=== PATIENT | female | born 1950 | race Caucasian/White ===

== ENCOUNTER 2018-02-28 16:04 | Inpatient (IN) | payer MEDICARE ==
[2018-02-28] MEDS ORDERED: HEPARIN SODIUM,PORCINE 5,000 UNIT/ML 1 ML VIAL IV STA (16:51)
[2018-02-28] MEDS ORDERED: SODIUM CHLORIDE 0.9% 1,000 ML IV STA (16:51)
[2018-02-28] MEDS ORDERED: DILTIAZEM 50 MG in SODIUM CHLORIDE 0.9% 40 ML IV STA (16:51)
--- NOTE | 2018-02-28 16:57 | ED ---
Arrhythmia/Palpitations HPI - General Chief Complaint: Arrhythmia/Palpitations Stated Complaint: Abn EKG Time Seen by Provider: 02/28/18 16:35 Source: patient Mode of arrival: ambulatory Limitations: no limitations - History of Present Illness Initial Comments: This is a 67-year-old female history of rheumatoid and osteoarthritis hypertension fibromyalgia who was sent in for evaluation of atrial fibrillation. She started doctor today was found have atrial fibrillation with rapid ventricular response. The patient does states she's had shortness of breath and exertional dyspnea for the past several days. No chest pain no dizziness lightheadedness or other symptoms no palpitations. No weight gain no peripheral edema. She does states she's always had an irregular heartbeat but does not believe she had atrial fibrillation. No history of thyroid disease. No other modifying factors known at this time MD Complaint: irregular heart beat - Related Data Home Medications Medication Instructions Recorded Confirmed Sivakumar Back And Body 2 tab PO Q6H PRN 02/28/18 02/28/18 Loratadine [Claritin] 10 mg PO DAILY 02/28/18 02/28/18 Multivitamins, Thera [Multivitamin 1 tab PO DAILY 02/28/18 02/28/18 (formulary)] Allergies Allergy/AdvReac Type Severity Reaction Status Date / Time ciprofloxacin [From Cipro] Allergy Rash/Hives Verified 02/28/18 17:16 acetaminophen AdvReac Hallucinati Verified 02/28/18 17:16 [From Darvocet-N] ons propoxyphene AdvReac Hallucinati Verified 02/28/18 17:16 [From Darvocet-N] ons Review of Systems ROS Statement: Those systems with pertinent positive or pertinent negative responses have been documented in the HPI. ROS Other: All systems not noted in ROS Statement are negative. Past Medical History Additional Past Medical History / Comment(s): Arthritis History of Any Multi-Drug Resistant Organisms: None Reported Past Surgical History: Hysterectomy, Orthopedic Surgery Past Psychological History: No Psychological Hx Reported Smoking Status: Never smoker Past Alcohol Use History: None Reported Past Drug Use History: None Reported General Exam - General Exam Comments Initial Comments: This is a well-developed well-nourished awake alert oriented 3 female Limitations: no limitations General appearance: alert, in no apparent distress Head exam: Present: atraumatic, normocephalic, normal inspection Eye exam: Present: normal appearance, PERRL, EOMI. Absent: scleral icterus, conjunctival injection, periorbital swelling ENT exam: Present: normal exam, mucous membranes moist Neck exam: Present: normal inspection. Absent: tenderness, meningismus, lymphadenopathy Respiratory exam: Present: normal lung sounds bilaterally. Absent: respiratory distress, wheezes, rales, rhonchi, stridor Cardiovascular Exam: Present: tachycardia, irregular rhythm. Absent: systolic murmur, diastolic murmur, rubs, gallop, clicks GI/Abdominal exam: Present: soft, normal bowel sounds. Absent: distended, tenderness, guarding, rebound, rigid Extremities exam: Present: full ROM, normal capillary refill, other (Stigmata of rheumatoid arthritis). Absent: tenderness, pedal edema, joint swelling, calf tenderness Back exam: Present: normal inspection Neurological exam: Present: alert, oriented X3, CN II-XII intact Psychiatric exam: Present: normal affect, normal mood Skin exam: Present: warm, dry, intact, normal color. Absent: rash Course Vital Signs 02/28/18 16:08 Temperature 98.5 F Pulse Rate 139 H Respiratory 18 Rate Blood Pressure 181/125 O2 Sat by Pulse 98 Oximetry - Reevaluation(s) Reevaluation #1: 02/28/18 17:55 I did reevaluate patient after return from x-ray no change in her status he still is breathing well at rest maintain oxygenation in the mid 90s on room air. EKG Findings - EKG Results: EKG: interpreted by ERMD (Atrial fibrillation rapid ventricular response rate 128 QRS 82 QT since QTC 336/490 this is after Cardizem had been started. This does correlate with the one sent in with the patient.) Medical Decision Making - Lab Data Result diagrams: 02/28/18 16:41 02/28/18 16:41 Lab Results 02/28/18 02/28/18 02/28/18 Range/Units 16:41 16:41 16:41 WBC 6.7 (3.8-10.6) k/uL RBC 4.17 (3.80-5.40) m/uL Hgb 10.3 L (11.4-16.0) gm/dL Hct 33.1 L (34.0-46.0) % MCV 79.3 L (80.0-100.0) fL MCH 24.8 L (25.0-35.0) pg MCHC 31.2 (31.0-37.0) g/dL RDW 17.9 H (11.5-15.5) % Plt Count 171 (150-450) k/uL Neutrophils % 72 % Lymphocytes % 16 % Monocytes % 7 % Eosinophils % 2 % Basophils % 1 % Neutrophils # 4.8 (1.3-7.7) k/uL Lymphocytes # 1.1 (1.0-4.8) k/uL Monocytes # 0.5 (0-1.0) k/uL Eosinophils # 0.1 (0-0.7) k/uL Basophils # 0.0 (0-0.2) k/uL Hypochromasia Marked Anisocytosis Slight Microcytosis Slight PT (9.0-12.0) sec INR (<1.2) APTT (22.0-30.0) sec Sodium 143 (137-145) mmol/L Potassium 4.1 (3.5-5.1) mmol/L Chloride 109 H (98-107) mmol/L Carbon Dioxide 18 L (22-30) mmol/L Anion Gap 16 mmol/L BUN 16 (7-17) mg/dL Creatinine 0.60 (0.52-1.04) mg/dL Est GFR (CKD-EPI)AfAm >90 (>60 ml/min/1.73 sqM) Est GFR (CKD-EPI)NonAf >90 (>60 ml/min/1.73 sqM) Glucose 101 H (74-99) mg/dL Calcium 8.9 (8.4-10.2) mg/dL Magnesium 1.8 (1.6-2.3) mg/dL Total Bilirubin 0.4 (0.2-1.3) mg/dL AST 39 H (14-36) U/L ALT 49 (9-52) U/L Alkaline Phosphatase 99 (38-126) U/L Total Creatine Kinase 93 (30-135) U/L CK-MB (CK-2) 2.6 H* (0.0-2.4) ng/mL CK-MB (CK-2) Rel Index 2.8 Troponin I 0.017 (0.000-0.034) ng/mL Total Protein 6.1 L (6.3-8.2) g/dL Albumin 3.7 (3.5-5.0) g/dL TSH <0.015 L (0.465-4.680) mIU/L 02/28/18 Range/Units 16:41 WBC (3.8-10.6) k/uL RBC (3.80-5.40) m/uL Hgb (11.4-16.0) gm/dL Hct (34.0-46.0) % MCV (80.0-100.0) fL MCH (25.0-35.0) pg MCHC (31.0-37.0) g/dL RDW (11.5-15.5) % Plt Count (150-450) k/uL Neutrophils % % Lymphocytes % % Monocytes % % Eosinophils % % Basophils % % Neutrophils # (1.3-7.7) k/uL Lymphocytes # (1.0-4.8) k/uL Monocytes # (0-1.0) k/uL Eosinophils # (0-0.7) k/uL Basophils # (0-0.2) k/uL Hypochromasia Anisocytosis Microcytosis PT 11.6 (9.0-12.0) sec INR 1.2 H (<1.2) APTT 24.6 (22.0-30.0) sec Sodium (137-145) mmol/L Potassium (3.5-5.1) mmol/L Chloride (98-107) mmol/L Carbon Dioxide (22-30) mmol/L Anion Gap mmol/L BUN (7-17) mg/dL Creatinine (0.52-1.04) mg/dL Est GFR (CKD-EPI)AfAm (>60 ml/min/1.73 sqM) Est GFR (CKD-EPI)NonAf (>60 ml/min/1.73 sqM) Glucose (74-99) mg/dL Calcium (8.4-10.2) mg/dL Magnesium (1.6-2.3) mg/dL Total Bilirubin (0.2-1.3) mg/dL AST (14-36) U/L ALT (9-52) U/L Alkaline Phosphatase (38-126) U/L Total Creatine Kinase (30-135) U/L CK-MB (CK-2) (0.0-2.4) ng/mL CK-MB (CK-2) Rel Index Troponin I (0.000-0.034) ng/mL Total Protein (6.3-8.2) g/dL Albumin (3.5-5.0) g/dL TSH (0.465-4.680) mIU/L - Radiology Data Radiology results: report reviewed (I did review the imaging and report is evidence of bilateral pleural effusions. Some cardiomegaly without overt signs of heart failure.), image reviewed Critical Care Time Critical Care Time: Yes Critical Care Time: 35 minutes of critical care time which includes initial presentation with history physical labs x-rays several reevaluation the patient evaluation imaging and lab work discussed with the patient family regarding findings discussion with the admitting physician admission orders and documentation of the above. Disposition Clinical Impression: Atrial fibrillation, Pleural effusion Disposition: ADMITTED IP TO THIS [facility] Condition: Stable Referrals: Mady Montague MD [Primary Care Provider] - 1-2 days
[2018-02-28 17:12] LABS: Anisocytosis Slight; Basophils % (A) 1 %; Eosinophils # (A) 0.1 k/uL (0-0.7); Eosinophils % (A) 2 %; HCT 33.1 % (34.0-46.0); HGB 10.3 gm/dL (11.4-16.0); Hypochromasia Marked; Lymphocytes # (A) 1.1 k/uL (1.0-4.8); Lymphocytes % (A) 16 %; MCH 24.8 pg (25.0-35.0); MCHC 31.2 g/dL (31.0-37.0); MCV 79.3 fL (80.0-100.0); Mean Platelet Volume 7.9; Microcytosis Slight; Monocytes # (A) 0.5 k/uL (0-1.0); Monocytes % (A) 7 %; Neutrophils # (A) 4.8 k/uL (1.3-7.7); Neutrophils % (A) 72 %; Platelet Count 171 k/uL (150-450); RBC 4.17 m/uL (3.80-5.40); RDW 17.9 % (11.5-15.5); WBC 6.7 k/uL (3.8-10.6)
[2018-02-28 17:21] LABS: INR 1.2 (<1.2); Partial Thromboplastin Time 24.6 sec (22.0-30.0); Prothrombin Time 11.6 sec (9.0-12.0)
[2018-02-28 17:26] LABS: ALT 49 U/L (9-52); AST 39 U/L (14-36); Albumin 3.7 g/dL (3.5-5.0); Alkaline Phosphatase 99 U/L (38-126); Anion Gap 16 mmol/L; Blood Urea Nitrogen 16 mg/dL (7-17); Calcium 8.9 mg/dL (8.4-10.2); Carbon Dioxide 18 mmol/L (22-30); Chloride 109 mmol/L (98-107); Glucose 101 mg/dL (74-99); Magnesium 1.8 mg/dL (1.6-2.3); Potassium 4.1 mmol/L (3.5-5.1); Sodium 143 mmol/L (137-145); Total Bilirubin 0.4 mg/dL (0.2-1.3); Total Protein 6.1 g/dL (6.3-8.2)
--- NOTE | 2018-02-28 17:32 | XR ---
EXAMINATION TYPE: XR chest 2V DATE OF EXAM: 02/28/2018 COMPARISON: NONE HISTORY: Short of breath TECHNIQUE: Frontal and lateral views of the chest are obtained. FINDINGS: Heart is enlarged. There is blunting of costophrenic angles. There are chest leads. Thorac ic aorta is atheromatous. IMPRESSION: Bilateral pleural effusions. Cardiomegaly without overt heart failure.
[2018-02-28 17:50] LABS: Troponin I 0.017 ng/mL (0.000-0.034)
[2018-02-28 17:52] LABS: Creatine Kinase MB 2.6 ng/mL (0.0-2.4)
[2018-02-28] MEDS: HEPARIN SODIUM,PORCINE/D5W PMX 25,000 UNIT in DEXTROSE/WATER 1 500ML.BAG IV SCH (17:54)
[2018-02-28] MEDS ORDERED: NALOXONE 0.4 MG/ML 1 ML VIAL IV PRN (17:59)
[2018-02-28] MEDS ORDERED: FUROSEMIDE 10 MG/ML 4 ML VIAL IV STA (18:01)
[2018-02-28] MEDS: SODIUM CHLORIDE 0.9% 1,000 ML IV SCH (19:01)
[2018-02-28] MEDS: ASPIRIN 81 MG PO STA ×2 (19:04→19:06)
[2018-02-28] MEDS: METOPROLOL TARTRATE 25 MG TAB PO SCH (20:10)
[2018-02-28 22:08] VITALS: BMI 22.8
[2018-03-01] MEDS ORDERED: HEPARIN SODIUM,PORCINE 5,000 UNIT/ML 1 ML VIAL ONE (03:38)
[2018-03-01] MEDS: HEPARIN SODIUM,PORCINE/D5W PMX 25,000 UNIT in DEXTROSE/WATER 1 500ML.BAG IV SCH (09:10)
[2018-03-01] MEDS: METOPROLOL TARTRATE 25 MG TAB PO SCH (09:10)
[2018-03-01] MEDS: ASPIRIN 81 MG PO SCH (09:10)
[2018-03-01] MEDS: LORATADINE 10 MG TAB PO SCH (10:27)
--- NOTE | 2018-03-01 10:48 | P.CRDCN ---
History of Present Illness Consult date: 03/01/18 Requesting physician: Vandana Baron Consult reason: atrial fibrillation Chief complaint: Shortness of breath History of present illness: This is a pleasant 67-year-old female with history of hypertension, untreated, nondiabetic, no hyperlipidemia, nonsmoker, rheumatoid and osteoarthritis history, patient has attempted several different medications for her rheumatoid arthritis over the years but has been unable to tolerate them. She presents to the hospital on this occasion with symptoms of progressively worsening shortness of breath which she states has been going on for quite some time. She recently was established with Dr. Montague, she went to see her in the office with the complaints of the shortness of breath yesterday, and EKG was performed which revealed atrial fibrillation with rapid ventricular response, and for this reason patient was admitted to the hospital for further evaluation and treatment. Chest x-ray on arrival here showed bilateral pleural effusions, cardiomegaly without overt heart failure. EKG showed atrial fibrillation with a rapid ventricular response. Patient states she has been told over the years to have some irregularity in heart beat but never has been told to have atrial fibrillation prior to this. She also states that she has worn a heart monitor several times in the past as an outpatient which never seemed to detect any atrial fibrillation. Subsequent EKG White blood cell count 6.7, hemoglobin 10.3 , platelet count 171. Sodium 143, potassium 4.1, BUN 16, creatinine 0.6. Magnesium 1.8. Troponins 0.017, 0.026, 0.025. TSH 0.015. At the time of my examination this morning, patient states that she feels her breathing is even worse than when she came in yesterday. The patient had been given a one-time dose of IV Lasix on admission here, and her weight is down 2 kg from admission. Past Medical History Past Medical History: Fibromyalgia, Hypertension, Osteoarthritis (OA), Rheumatoid Arthritis (RA) Additional Past Medical History / Comment(s): Arthritis History of Any Multi-Drug Resistant Organisms: None Reported Past Surgical History: Hysterectomy, Orthopedic Surgery Past Psychological History: No Psychological Hx Reported Smoking Status: Never smoker Past Alcohol Use History: None Reported Past Drug Use History: None Reported Medications and Allergies Home Medications Medication Instructions Recorded Confirmed Type Sivakumar Back And Body 2 tab PO Q6H PRN 02/28/18 02/28/18 History Loratadine [Claritin] 10 mg PO DAILY 02/28/18 02/28/18 History Multivitamins, Thera [Multivitamin 1 tab PO DAILY 02/28/18 02/28/18 History (formulary)] Allergies Allergy/AdvReac Type Severity Reaction Status Date / Time ciprofloxacin [From Cipro] Allergy Rash/Hives Verified 02/28/18 17:16 acetaminophen AdvReac Hallucinati Verified 02/28/18 17:16 [From Darvocet-N] ons propoxyphene AdvReac Hallucinati Verified 02/28/18 17:16 [From Darvocet-N] ons Physical Exam Vitals: Vital Signs Temp Pulse Pulse Resp BP BP Pulse Ox 03/01/18 04:00 97.5 F L 98 18 152/61 94 L 03/01/18 00:00 98.0 F 110 H 18 140/94 94 L 02/28/18 21:13 122 H 18 159/64 97 02/28/18 21:07 98.6 F 105 H 18 139/92 94 L 02/28/18 20:09 139 H 18 162/107 97 02/28/18 19:14 145/86 02/28/18 19:04 98.4 F 124 H 20 170/95 98 02/28/18 18:59 132 H 20 95 02/28/18 17:57 100.4 F H 131 H 18 169/96 94 L 02/28/18 16:08 98.5 F 139 H 18 181/125 98 Intake and Output 02/28/18 03/01/18 03/01/18 22:59 06:59 14:59 Intake Total 325 124.344 291.304 Output Total 1 Balance 324 124.344 291.304 Intake: Intake, IV Titration 200 124.344 91.304 Amount Heparin Sodium,Porcine/ 40 124.344 91.304 D5w Pmx 25,000 unit In Dextrose/Water 1 500ml. bag @ 12 UNITS/KG/HR 12. 93 mls/hr IV .Q24H MADHU Rx #:[id number] Sodium Chloride 0.9% 1, 100 000 ml @ 100 mls/hr IV . Q10H STA Rx#:[id number] Sodium Chloride 0.9% 1, 60 000 ml @ 20 mls/hr IV . Q24H MADHU Rx#:[id number] Oral 125 200 Output: Urine 1 Other: # Voids 1 1 1 Weight 53.8 kg 51.2 kg PHYSICAL EXAMINATION: GENERAL: 67-year-old female appears to be short of breath at the time of my examination. HEENT: Head is atraumatic, normocephalic. Pupils equal, round. Sclera anicteric. Conjunctiva are clear. Mucous membranes of the mouth are moist. Neck is supple. There is elevated jugular venous pressure.] bruit is heard. HEART EXAMINATION: Heart S1 and S2 irregularly irregular diastolic murmur is heard. CHEST EXAMINATION: Lungs are clear with diminished air entry to bilateral bases. ABDOMEN: Soft, nontender. Bowel sounds are heard. No organomegaly noted. EXTREMITIES: 2+ peripheral pulses with no evidence of peripheral edema and no calf tenderness noted. NEUROLOGIC patient is awake, alert and oriented -3. . Results 02/28/18 16:41 02/28/18 16:41 Cardiac Enzymes 02/28/18 02/28/18 02/28/18 Range/Units 16:41 16:41 23:58 AST 39 H (14-36) U/L CK-MB (CK-2) 2.6 H* (0.0-2.4) ng/mL Troponin I 0.017 0.026 (0.000-0.034) ng/mL 03/01/18 Range/Units 06:13 AST (14-36) U/L CK-MB (CK-2) (0.0-2.4) ng/mL Troponin I 0.025 (0.000-0.034) ng/mL Coagulation 02/28/1818 03/01/18 Range/Units 16:41 02:44 09:18 PT 11.6 (9.0-12.0) sec APTT 24.6 30.8 H 40.5 H (22.0-30.0) sec CBC 02/28/18 Range/Units 16:41 WBC 6.7 (3.8-10.6) k/uL RBC 4.17 (3.80-5.40) m/uL Hgb 10.3 L (11.4-16.0) gm/dL Hct 33.1 L (34.0-46.0) % Plt Count 171 (150-450) k/uL Comprehensive Metabolic Panel 02/28/18 Range/Units 16:41 Sodium 143 (137-145) mmol/L Potassium 4.1 (3.5-5.1) mmol/L Chloride 109 H (98-107) mmol/L Carbon Dioxide 18 L (22-30) mmol/L BUN 16 (7-17) mg/dL Creatinine 0.60 (0.52-1.04) mg/dL Glucose 101 H (74-99) mg/dL Calcium 8.9 (8.4-10.2) mg/dL AST 39 H (14-36) U/L ALT 49 (9-52) U/L Alkaline Phosphatase 99 (38-126) U/L Total Protein 6.1 L (6.3-8.2) g/dL Albumin 3.7 (3.5-5.0) g/dL Current Medications Generic Name Dose Route Start Last Admin Trade Name Freq PRN Reason Stop Dose Admin Aspirin 81 mg 03/01/18 09:00 03/01/18 09:10 Aspirin PO 81 mg Q24HR MADHU Administration Heparin Sodium/Dextrose 25,000 500 mls @ 12.93 mls/hr 02/28/18 17:00 09:10 unit/ IV Solution IV 15 units/kg/hr .Q24H MADHU 16.16 mls/hr Protocol Administration 12 UNITS/KG/HR Sodium Chloride 1,000 mls @ 20 mls/hr 02/28/18 18:00 02/28/18 19:01 Saline 0.9% IV 20 mls/hr .Q24H MADHU Administration Loratadine 10 mg 03/01/18 09:00 Claritin PO DAILY MADHU Metoprolol Tartrate 25 mg 02/28/18 21:00 03/01/18 09:10 Lopressor PO 25 mg BID MADHU Administration Multivitamins 1 each 03/01/18 12:00 Theragran PO DAILY@1200 MADHU Naloxone HCl 0.2 mg 02/28/18 17:59 Narcan IV Q2M PRN Opioid Reversal Intake and Output 02/28/18 03/01/18 03/01/18 22:59 06:59 14:59 Intake Total 325 124.344 291.304 Output Total 1 Balance 324 124.344 291.304 Intake: Intake, IV Titration 200 124.344 91.304 Amount Heparin Sodium,Porcine/ 40 124.344 91.304 D5w Pmx 25,000 unit In Dextrose/Water 1 500ml. bag @ 12 UNITS/KG/HR 12. 93 mls/hr IV .Q24H [facility] Rx #:[id number] Sodium Chloride 0.9% 1, 100 000 ml @ 100 mls/hr IV . Q10H STA Rx#:[id number] Sodium Chloride 0.9% 1, 60 000 ml @ 20 mls/hr IV . Q24H MAD[facility] Rx#:[id number] Oral 125 200 Output: Urine 1 Other: # Voids 1 1 1 Weight 53.8 kg 51.2 kg 02/28/18 16:41 02/28/18 16:41 EKG Interpretations (text) EKG shows atrial fibrillation with rapid ventricular response Assessment and Plan Plan: Assessment and plan #1 symptoms of progressively worsening shortness of breath, evidence of bilateral pleural effusions on chest x-ray. Patient received a one-time dose of IV Lasix. Could also be exasperated by Marylu rodriges with RVR. #2 atrial fibrillation with rapid ventricular response, new diagnosis for the patient. Chronic persistent. #3 hypertension, untreated #4 rheumatoid and osteoarthritis #5 hyperthyroidism Plan We will obtain an echocardiogram with Doppler study. Continue anticoagulation with heparin and check to see if the patient has coverage for one of the newer anticoagulants. We will also request a BNP level be obtained, and initiate twice a day IV Lasix. Further recommendations to follow. DNP note has been reviewed, I agree with a documented findings and plan of care. Patient was seen and examined.
--- NOTE | 2018-03-01 11:21 | ECHOF ---
Referral Reason:New onset A.fib MEASUREMENTS -------- HEIGHT: 180.3 cm WEIGHT: 50.8 kg BP: 152/61 IVSd: 1.1 cm (0.6 - 1.1) LVIDd: 4.8 cm (3.9 - 5.3) LVPWd: 1.3 cm (0.6 - 1.1) IVSs: 1.1 cm LVIDs: 3.6 cm LVPWs: 1.9 cm LAESV Index (A-L): 74.86 ml/m Ao Diam: 3.3 cm (2.0 - 3.7) AV Cusp: 1.8 cm (1.5 - 2.6) LA Diam: 3.7 cm (2.7 - 3.8) AR PHT: 255 ms RAP: 5.00 mmHg RVSP: 31.01 mmHg FINDINGS -------- Atrial fibrillation. This was a technically good study. The left ventricular size is normal. There is borderline concentric left ventricular hypertrophy. Overall left ventricular systolic function is low-normal with, an EF between 50 - 55 %. The right ventricle is normal in size and function. LA is severely dilated >40 ml/m2 The right atrium is normal in size. Aortic valve is trileaflet and is mildly thickened. Trace amount of aortic regurgitation. The mitral valve leaflets are mildly thickened. Mild mitral annular calcification present. Modera te mitral regurgitation is present. Mild tricuspid regurgitation present. The right ventricular systolic pressure, as measured by Doppl er, is 31.01mmHg. Pulmonic valve appears structurally normal. The aortic root size is normal. Normal inferior vena cava with normal inspiratory collapse consistent with estimated right atrial pre ssure of 5 mmHg. The pericardium is normal. CONCLUSIONS -------- 1. Atrial fibrillation. 2. This was a technically good study. 3. The left ventricular size is normal. 4. There is borderline concentric left ventricular hypertrophy. 5. Overall left ventricular systolic function is low-normal with, an EF between 50 - 55 %. 6. The right ventricle is normal in size and function. 7. LA is severely dilated >40 ml/m2 8. The right atrium is normal in size. 9. Aortic valve is trileaflet and is mildly thickened. 10. Trace amount of aortic regurgitation. 11. The mitral valve leaflets are mildly thickened. 12. Mild mitral annular calcification present. 13. Moderate mitral regurgitation is present. 14. Mild tricuspid regurgitation present. 15. The right ventricular systolic pressure, as measured by Doppler, is 31.01mmHg. 16. Pulmonic valve appears structurally normal. 17. The aortic root size is normal. 18. Normal inferior vena cava with normal inspiratory collapse consistent with estimated right atrial pressure of 5 mmHg. 19. The pericardium is normal. URGENT CARE PHYSICIAN ASSISTANT: Jacquelin Smith RDCS
[2018-03-01] MEDS ORDERED: HEPARIN SODIUM,PORCINE 5,000 UNIT/ML 1 ML VIAL IV PRN (12:15)
[2018-03-01] MEDS ORDERED: METOPROLOL TARTRATE 50 MG TAB PO SCH (12:30)
[2018-03-01] MEDS: FUROSEMIDE 10 MG/ML 4 ML VIAL IV SCH ×2 (12:31→19:55)
[2018-03-01] MEDS: METHIMAZOLE 5 MG TAB PO SCH ×3 (12:31→19:56)
[2018-03-01] MEDS: MULTIVITAMINS, THERA 1 EACH TAB PO SCH (12:31)
[2018-03-01] MEDS: LOSARTAN 50 MG TAB PO SCH (13:41)
--- NOTE | 2018-03-01 16:05 | P.HPIM ---
History of Present Illness 67-year-old pleasant female was sent in from my Dr. Montague's clinic after she was found to have atrial fibrillation. Patient was having comments of shortness of breath going on for about 2-4 weeks progressively worse unable to lie flat on the bed and gives me awake history of orthopnea today patient does have elevated JVD and did not have any BNP available. Patient is found to be in atrial fibrillation in ER patient was subsequently admitted. Patient had a normal ejection fraction with ejection fraction of 55-60% with some concentrated left ventricle hypertrophy. Patient is also found to have low TSH and elevated T4. Patient denied any fever chills or dysuria nausea vomiting. Patient was started on metoprolol yesterday. Patient was given IV fluids which was in her symptoms of shortness of breath and patient is presently on 4 L of onset doesn't use any oxygen at home IV fluids at this can urine patient was started on Lasix patient does have bilateral pleural effusion does have some pulmonary edema precipitated by probably atrial fibrillation. Which is again frustrated by primary hyperthyroidism. Patient was started on methimazole will need follow-up with endocrinology as an outpatient. Review of Systems REVIEW OF SYSTEMS: CONSTITUTIONAL: No fever, no malaise, no fatigue. HEENT: No recent visual problems or hearing problems. Denied any sore throat. CARDIOVASCULAR: No chest pain, no palpitations, no syncope. PULMONARY:, no cough, no hemoptysis. GASTROINTESTINAL: No diarrhea, no nausea, no vomiting, no abdominal pain. Normoactive bowel sounds. NEUROLOGICAL: No headaches, no weakness, no numbness. HEMATOLOGICAL: Denies any bleeding or petechiae. GENITOURINARY: Denies any burning micturition, frequency, or urgency. MUSCULOSKELETAL/RHEUMATOLOGICAL: Denies any joint pain, swelling, or any muscle pain. ENDOCRINE: Denies any polyuria or polydipsia. The rest of the 14-point review of systems is negative. Past Medical History Past Medical History: Fibromyalgia, Hypertension, Osteoarthritis (OA), Rheumatoid Arthritis (RA) Additional Past Medical History / Comment(s): Arthritis History of Any Multi-Drug Resistant Organisms: None Reported Past Surgical History: Hysterectomy, Orthopedic Surgery Past Psychological History: No Psychological Hx Reported Smoking Status: Never smoker Past Alcohol Use History: None Reported Past Drug Use History: None Reported Medications and Allergies Home Medications Medication Instructions Recorded Confirmed Type Sivakumar Back And Body 2 tab PO Q6H PRN 06/12/18 06/12/18 History Loratadine [Claritin] 10 mg PO DAILY 02/28/18 02/28/18 History Multivitamins, Thera [Multivitamin 1 tab PO DAILY 02/28/18 02/28/18 History (formulary)] Allergies Allergy/AdvReac Type Severity Reaction Status Date / Time ciprofloxacin [From Cipro] Allergy Rash/Hives Verified 02/28/18 17:16 acetaminophen AdvReac Hallucinati Verified 02/28/18 17:16 [From Darvocet-N] ons propoxyphene AdvReac Hallucinati Verified 02/28/18 17:16 [From Darvocet-N] ons Physical Exam Vitals: Vital Signs Temp Pulse Pulse Resp BP BP Pulse Ox 03/01/18 12:20 97.0 F L 120 H 18 158/92 94 L 03/01/18 08:15 97.8 F 118 H 18 169/92 95 03/01/18 04:00 97.5 F L 98 18 152/61 94 L 03/01/18 00:00 98.0 F 110 H 18 140/94 94 L 02/28/18 21:13 122 H 18 159/64 97 02/28/18 21:07 98.6 F 105 H 18 139/92 94 L 02/28/18 20:09 139 H 18 162/107 97 02/28/18 19:14 145/86 02/28/18 19:04 98.4 F 124 H 20 170/95 98 02/28/18 18:59 132 H 20 95 02/28/18 17:57 100.4 F H 131 H 18 169/96 94 L 02/28/18 16:08 98.5 F 139 H 18 181/125 98 Intake and Output 03/01/18 03/01/18 03/01/18 06:59 14:59 22:59 Intake Total 124.344 391.304 Balance 124.344 391.304 Intake: Intake, IV Titration 124.344 91.304 Amount Heparin Sodium,Porcine/ 124.344 91.304 D5w Pmx 25,000 unit In Dextrose/Water 1 500ml. bag @ 12 UNITS/KG/HR 12. 93 mls/hr IV .Q24H [facility] Rx #:[id number] Oral 300 Other: # Voids 1 1 1 Weight 51.2 kg PHYSICAL EXAMINATION: GENERAL: The patient is alert and oriented x3, not in any acute distress. Well developed, well nourished. HEENT: Pupils are round and equally reacting to light. EOMI. No scleral icterus. No conjunctival pallor. Normocephalic, atraumatic. No pharyngeal erythema. No thyromegaly. CARDIOVASCULAR: S1 and S2 present. No murmurs, rubs, or gallops. Irregularly irregular rhythm and patient does have elevated JVD PULMONARY: Bibasilar crackles were appreciated good air entry into bilateral lung herrera ABDOMEN: Soft, nontender, nondistended, normoactive bowel sounds. No palpable organomegaly. MUSCULOSKELETAL: No joint swelling or deformity. EXTREMITIES: No cyanosis, clubbing, or pedal edema. NEUROLOGICAL: Gross neurological examination did not reveal any focal deficits. SKIN: No rashes. Results CBC & Chem 7: 02/28/18 16:41 02/28/18 16:41 Labs: Abnormal Lab Results - Last 24 Hours (Table) 02/28/18 02/28/18 02/28/18 Range/Units 16:41 16:41 16:41 Hgb 10.3 L (11.4-16.0) gm/dL Hct 33.1 L (34.0-46.0) % MCV 79.3 L (80.0-100.0) fL MCH 24.8 L (25.0-35.0) pg RDW 17.9 H (11.5-15.5) % INR (<1.2) APTT (22.0-30.0) sec Chloride 109 H (98-107) mmol/L Carbon Dioxide 18 L (22-30) mmol/L Glucose 101 H (74-99) mg/dL AST 39 H (14-36) U/L CK-MB (CK-2) 2.6 H* (0.0-2.4) ng/mL Total Protein 6.1 L (6.3-8.2) g/dL TSH <0.015 L (0.465-4.680) mIU/L Free T4 (0.78-2.19) ng/dL 02/28/18 03/01/18 03/01/18 Range/Units 16:41 02:44 06:13 Hgb (11.4-16.0) gm/dL Hct (34.0-46.0) % MCV (80.0-100.0) fL MCH (25.0-35.0) pg RDW (11.5-15.5) % INR 1.2 H (<1.2) APTT 30.8 H (22.0-30.0) sec Chloride (98-107) mmol/L Carbon Dioxide (22-30) mmol/L Glucose (74-99) mg/dL AST (14-36) U/L CK-MB (CK-2) (0.0-2.4) ng/mL Total Protein (6.3-8.2) g/dL TSH (0.465-4.680) mIU/L Free T4 3.23 H (0.78-2.19) ng/dL 03/01/18 Range/Units 09:18 Hgb (11.4-16.0) gm/dL Hct (34.0-46.0) % MCV (80.0-100.0) fL MCH (25.0-35.0) pg RDW (11.5-15.5) % INR (<1.2) APTT 40.5 H (22.0-30.0) sec Chloride (98-107) mmol/L Carbon Dioxide (22-30) mmol/L Glucose (74-99) mg/dL AST (14-36) U/L CK-MB (CK-2) (0.0-2.4) ng/mL Total Protein (6.3-8.2) g/dL TSH (0.465-4.680) mIU/L Free T4 (0.78-2.19) ng/dL Thrombosis Risk Factor Assmnt - Choose All That Apply Each Factor Represents 1 point: Swollen legs (current) Other Risk Factors: Yes Each Risk Factor Represents 2 Points: Age 61-74 years Other congenital or acquired thrombophilia - If yes, enter type in comment: No Thrombosis Risk Factor Assessment Total Risk Factor Score: 3 Thrombosis Risk Factor Assessment Level: Moderate Risk Assessment and Plan Plan: -Shortness of breath: Probably secondary to pulmonary edema which is again secondary to atrial fibrillation prostrating pulmonary edema I cannot completely rule out chronic diastolic dysfunction. Patient will be given Lasix. -New-onset atrial flutter fibrillation with rapid unclear rate with is frustrated by primary hyperthyroidism, patient was started on methimazole patient was started on beta yohana patient the IV anticoagulations were discontinued and will be started on oral anti-coagulation Cardizem was discontinued. -Hypertension -Rheumatoid arthritis -Primary hyperthyroidism
[2018-03-01] MEDS: ACETAMINOPHEN TAB 325 MG TAB PO PRN (19:52)
[2018-03-01] MEDS: METOPROLOL TARTRATE 50 MG TAB PO SCH (19:55)
[2018-03-01] MEDS: SODIUM CHLORIDE 0.9% 1,000 ML IV SCH (19:55)
[2018-03-02] MEDS: FUROSEMIDE 10 MG/ML 4 ML VIAL IV SCH ×2 (08:53→20:39)
[2018-03-02] MEDS: LORATADINE 10 MG TAB PO SCH (08:54)
[2018-03-02] MEDS: METHIMAZOLE 5 MG TAB PO SCH ×3 (08:54→20:41)
[2018-03-02] MEDS: ASPIRIN 81 MG PO SCH (08:54)
[2018-03-02] MEDS: LOSARTAN 50 MG TAB PO SCH (08:54)
[2018-03-02] MEDS: METOPROLOL TARTRATE 50 MG TAB PO SCH ×2 (08:54→20:40)
[2018-03-02 09:30] LABS: Anisocytosis Slight; Basophils % (A) 1 %; Eosinophils # (A) 0.2 k/uL (0-0.7); Eosinophils % (A) 3 %; HCT 36.4 % (34.0-46.0); Hypochromasia Marked; Lymphocytes # (A) 1.1 k/uL (1.0-4.8); Lymphocytes % (A) 16 %; MCH 24.1 pg (25.0-35.0); MCHC 30.2 g/dL (31.0-37.0); MCV 79.7 fL (80.0-100.0); Mean Platelet Volume 6.5; Microcytosis Slight; Monocytes # (A) 0.5 k/uL (0-1.0); Monocytes % (A) 8 %; Neutrophils # (A) 4.6 k/uL (1.3-7.7); Neutrophils % (A) 70 %; Platelet Count 164 k/uL (150-450); RBC 4.57 m/uL (3.80-5.40); RDW 17.5 % (11.5-15.5); WBC 6.6 k/uL (3.8-10.6)
--- NOTE | 2018-03-02 09:44 | P.PN ---
Subjective Principal diagnosis: Patient looks better today. She feels better. She is less short of breath and is lying comfortably in bed. Her ventricular rates during atrial fibrillation is still elevated and we are increasing metoprolol to 100 mg twice daily. No chest discomfort no dizziness lightheadedness no orthopnea On examination she is afebrile 97.7F, heart rates about 110 beats a minute at rest during atrial fibrillation, blood pressure 140/87 mmHg Breath sounds are reduced bilaterally with bilateral crackles more so in the left posterior Heart sounds are soft but irregular no murmurs no gallop Abdomen soft no lower extremity edema Labs are reviewed hemoglobin 11, at lites normal GFR greater than 90, liver function tests normal, TSH suppressed at less than 0.015 and free T4 elevated at 3.23 2-D echo shows left radical ejection fraction of the lower limits of normal of 50-55% during atrial fibrillation normal RV size, severely dilated left atrium, moderate mitral regurgitation, RVSP 31 mmHg normal inspiratory collapse of the inferior vena cava Impression Atrial fibrillation with RVR Hyperthyroid state, medications being instituted on this admission Rheumatoid arthritis Diastolic heart failure elevated BNP Plan Continue IV Lasix today Continue Cozaar 50 g by mouth daily Methimazole has been initiated by the medical doctors Metoprolol dose is being increased to 100 mg twice daily for better rate control Upon discharge I will see her in the office in a few weeks Objective - Vital Signs Vital signs: Vital Signs Temp 97.7 F 03/02/18 08:35 Pulse 109 H 03/02/18 08:35 Resp 18 03/02/18 08:35 BP 140/87 03/02/18 08:35 Pulse Ox 93 L 03/02/18 08:35 Intake & Output 03/01/18 03/02/18 03/02/18 18:59 06:59 18:59 Intake Total 491.304 274.292 Balance 491.304 274.292 Weight 50.5 kg Intake: Intake, IV Titration 91.304 274.292 Amount Heparin Sodium,Porcine/ 91.304 274.292 D5w Pmx 25,000 unit In Dextrose/Water 1 500ml. bag @ 12 UNITS/KG/HR 12. 93 mls/hr IV .Q24H [facility] Rx #:[id number] Oral 400 Other: # Voids 1 2 3 - Labs CBC & Chem 7: 03/02/18 09:18 02/28/18 16:41 Labs: Abnormal Lab Results - Last 24 Hours (Table) 03/01/18 03/01/18 03/01/18 Range/Units 06:13 09:18 17:44 Hgb (11.4-16.0) gm/dL MCV (80.0-100.0) fL MCH (25.0-35.0) pg MCHC (31.0-37.0) g/dL RDW (11.5-15.5) % APTT 40.5 H 40.1 H (22.0-30.0) sec Free T4 3.23 H (0.78-2.19) ng/dL 03/02/18 03/02/18 03/02/18 Range/Units 00:34 09:18 09:18 Hgb 11.0 L (11.4-16.0) gm/dL MCV 79.7 L (80.0-100.0) fL MCH 24.1 L (25.0-35.0) pg MCHC 30.2 L (31.0-37.0) g/dL RDW 17.5 H (11.5-15.5) % APTT 39.6 H 42.6 H (22.0-30.0) sec Free T4 (0.78-2.19) ng/dL
[2018-03-02 09:48] LABS: Anion Gap 12 mmol/L; Blood Urea Nitrogen 12 mg/dL (7-17); Calcium 8.3 mg/dL (8.4-10.2); Carbon Dioxide 27 mmol/L (22-30); Chloride 100 mmol/L (98-107); Glucose 115 mg/dL (74-99); Potassium 3.3 mmol/L (3.5-5.1); Sodium 139 mmol/L (137-145)
[2018-03-02] MEDS: APIXABAN 5 MG TAB PO SCH ×2 (10:21→20:40)
[2018-03-02] MEDS: ACETAMINOPHEN TAB 325 MG TAB PO PRN ×2 (11:15→20:38)
[2018-03-02] MEDS: MULTIVITAMINS, THERA 1 EACH TAB PO SCH (11:30)
[2018-03-02] MEDS: POTASSIUM CHLORIDE ER 20 MEQ TAB.ER PO SCH ×3 (14:37→20:40)
--- NOTE | 2018-03-02 15:37 | P.PN ---
Subjective 5-year-old female was admitted for new-onset atrial fibrillation patient also has bilateral pleural effusion patient is being continued on IV Lasix today. Increased dose of metoprolol is being increased to 100 twice a day by cardiology will carry to monitor today. Patient is on methimazole for hyperthyroidism which is precipitating her atrial fibrillation. Constitutional: Denied any fatigue denied any fever. Cardio vascular: denied any chest pain, palpitations Gastrointestinal denied any nausea vomiting Pulmonary: Denied any shortness of breath cough Neurologic denied any new focal deficits Objective - Vital Signs Vital signs: Vital Signs Temp 97.0 F L 03/02/18 12:10 Pulse 74 03/02/18 12:10 Resp 18 03/02/18 12:10 BP 138/88 03/02/18 12:10 Pulse Ox 97 03/02/18 12:10 Intake & Output 03/01/18 03/02/18 03/02/18 18:59 06:59 18:59 Intake Total 491.304 274.292 118 Balance 491.304 274.292 118 Weight 50.5 kg Intake: Intake, IV Titration 91.304 274.292 Amount Heparin Sodium,Porcine/ 91.304 274.292 D5w Pmx 25,000 unit In Dextrose/Water 1 500ml. bag @ 12 UNITS/KG/HR 12. 93 mls/hr IV .Q24H [facility] Rx #:[id number] Oral 400 118 Other: # Voids 1 2 3 - Exam PHYSICAL EXAMINATION: GENERAL: The patient is alert and oriented x3, not in any acute distress. Well developed, well nourished. HEENT: Pupils are round and equally reacting to light. EOMI. No scleral icterus. No conjunctival pallor. Normocephalic, atraumatic. No pharyngeal erythema. No thyromegaly. CARDIOVASCULAR: S1 and S2 present. No murmurs, rubs, or gallops. Irregularly irregular rhythm and JVD improved PULMONARY: Bibasilar crackles were appreciated good air entry into bilateral lung herrera ABDOMEN: Soft, nontender, nondistended, normoactive bowel sounds. No palpable organomegaly. MUSCULOSKELETAL: No joint swelling or deformity. EXTREMITIES: No cyanosis, clubbing, or pedal edema. NEUROLOGICAL: Gross neurological examination did not reveal any focal deficits. SKIN: No rashes. - Labs CBC & Chem 7: 03/02/18 09:18 03/02/18 09:18 Labs: Abnormal Lab Results - Last 24 Hours (Table) 03/01/18 03/02/18 03/02/18 Range/Units 17:44 00:34 09:18 Hgb 11.0 L (11.4-16.0) gm/dL MCV 79.7 L (80.0-100.0) fL MCH 24.1 L (25.0-35.0) pg MCHC 30.2 L (31.0-37.0) g/dL RDW 17.5 H (11.5-15.5) % APTT 40.1 H 39.6 H (22.0-30.0) sec Potassium (3.5-5.1) mmol/L Glucose (74-99) mg/dL Calcium (8.4-10.2) mg/dL 03/02/18 03/02/18 Range/Units 09:18 09:18 Hgb (11.4-16.0) gm/dL MCV (80.0-100.0) fL MCH (25.0-35.0) pg MCHC (31.0-37.0) g/dL RDW (11.5-15.5) % APTT 42.6 H (22.0-30.0) sec Potassium 3.3 L (3.5-5.1) mmol/L Glucose 115 H (74-99) mg/dL Calcium 8.3 L (8.4-10.2) mg/dL Assessment and Plan Plan: -Shortness of breath: Probably secondary to pulmonary edema which is again secondary to atrial fibrillation precipitating pulmonary edema I cannot completely rule out chronic diastolic dysfunction. Patient will be continued on Lasix and patient's beta yohana dose was increased to 100 twice a day, patient is on methimazole presently -New-onset atrial flutter fibrillation with rapid unclear rate with is frustrated by primary hyperthyroidism, patient was started on methimazole patient was started on beta yohana patient the IV anticoagulations were discontinued and will be started on oral anti-coagulation, eliquis. -Hypertension -Rheumatoid arthritis -Primary hyperthyroidism
[2018-03-02 20:51] VITALS: RESP 16
[2018-03-03 06:23] LABS: Anisocytosis Slight; Basophils % (A) 1 %; Eosinophils # (A) 0.3 k/uL (0-0.7); Eosinophils % (A) 5 %; HCT 32.2 % (34.0-46.0); HGB 9.9 gm/dL (11.4-16.0); Hypochromasia Moderate; Lymphocytes # (A) 1.3 k/uL (1.0-4.8); Lymphocytes % (A) 25 %; MCH 23.8 pg (25.0-35.0); MCHC 30.6 g/dL (31.0-37.0); MCV 77.7 fL (80.0-100.0); Mean Platelet Volume 8.2; Microcytosis Slight; Monocytes # (A) 0.5 k/uL (0-1.0); Monocytes % (A) 10 %; Neutrophils # (A) 2.8 k/uL (1.3-7.7); Neutrophils % (A) 55 %; Platelet Count 155 k/uL (150-450); RBC 4.14 m/uL (3.80-5.40); WBC 5.1 k/uL (3.8-10.6)
[2018-03-03 08:47] LABS: Anion Gap 10 mmol/L; Blood Urea Nitrogen 16 mg/dL (7-17); Calcium 8.3 mg/dL (8.4-10.2); Carbon Dioxide 26 mmol/L (22-30); Chloride 106 mmol/L (98-107); Glucose 93 mg/dL (74-99); Magnesium 1.8 mg/dL (1.6-2.3); Potassium 4.1 mmol/L (3.5-5.1); Sodium 142 mmol/L (137-145)
[2018-03-03] MEDS: APIXABAN 5 MG TAB PO SCH (08:50)
[2018-03-03] MEDS: ASPIRIN 81 MG PO SCH (08:51)
[2018-03-03] MEDS: LORATADINE 10 MG TAB PO SCH (08:51)
[2018-03-03] MEDS: METOPROLOL TARTRATE 50 MG TAB PO SCH (08:51)
[2018-03-03] MEDS: METHIMAZOLE 5 MG TAB PO SCH (08:52)
[2018-03-03] MEDS: FUROSEMIDE 10 MG/ML 4 ML VIAL IV SCH (08:55)
[2018-03-03] MEDS ORDERED: POTASSIUM CHLORIDE ER 20 MEQ TAB.ER PO SCH (09:00)
[2018-03-03 11:36] VITALS: BP 133/94; PULSE 105; TEMP 98.1
[2018-03-03] MEDS: LOSARTAN 50 MG TAB PO SCH (11:39)
[2018-03-03] MEDS: MULTIVITAMINS, THERA 1 EACH TAB PO SCH ×3 (11:39→11:41)
[2018-03-03] MEDS: ACETAMINOPHEN TAB 325 MG TAB PO PRN (11:39)
--- NOTE | 2018-03-03 13:15 | P.DS ---
Providers Date of admission: 02/28/18 17:59 Attending physician: Vandana Baron Consults: 02/28/18 18:00 Consult Physician Routine Consulting Provider: Angela Coronado Consult Reason/Comments: Rapid atrial fibrillation Do you want consulting provider notified?: Yes Primary care physician: Mady Montague [facility] Course: 67-year-old female was admitted for new-onset atrial fibrillation patient also has bilateral pleural effusion patient is being continued on IV Lasix today. Increased dose of metoprolol is being increased to 100 twice a day by cardiology will carry to monitor today. Patient is on methimazole for hyperthyroidism which is precipitating her atrial fibrillation. 03/03/2080 Patient is fairly rate controlled, patient is cleared by cardiology patient will be discharged on 40 mg of Lipitor oral Lasix along with methimazole, 100 twice a day of metoprolol. PHYSICAL EXAMINATION: GENERAL: The patient is alert and oriented x3, not in any acute distress. Well developed, well nourished. HEENT: Pupils are round and equally reacting to light. EOMI. No scleral icterus. No conjunctival pallor. Normocephalic, atraumatic. No pharyngeal erythema. No thyromegaly. CARDIOVASCULAR: S1 and S2 present. No murmurs, rubs, or gallops. Irregularly irregular rhythm and JVD resolved PULMONARY: Bibasilar crackles were appreciated good air entry into bilateral lung herrera ABDOMEN: Soft, nontender, nondistended, normoactive bowel sounds. No palpable organomegaly. MUSCULOSKELETAL: No joint swelling or deformity. EXTREMITIES: No cyanosis, clubbing, or pedal edema. NEUROLOGICAL: Gross neurological examination did not reveal any focal deficits. SKIN: No rashes. Assessment and Plan Plan: -Shortness of breath: Probably secondary to pulmonary edema which is again secondary to atrial fibrillation precipitating pulmonary edema I cannot completely rule out chronic diastolic dysfunction. Patient is being discharged today -New-onset atrial flutter fibrillation with rapid unclear rate with is precipitated by primary hyperthyroidism, patient was started on methimazole patient is on beta yohana on oral anti-coagulation, eliquis. -Hypertension -Rheumatoid arthritis -Primary hyperthyroidism Patient Condition at Discharge: Stable Plan - Discharge Summary Discharge Rx Participant: No New Discharge Prescriptions: New Apixaban [Eliquis] 5 mg PO BID #60 tab Furosemide [Lasix] 40 mg PO DAILY #30 tablet Losartan [Cozaar] 50 mg PO DAILY #30 tab Methimazole [Tapazole] 5 mg PO TID #90 tab Metoprolol Tartrate [Lopressor] 100 mg PO BID #60 tab Potassium Chloride ER [K-Dur 10] 10 meq PO DAILY #30 tab Continue Multivitamins, Thera [Multivitamin (formulary)] 1 tab PO DAILY Sivakumar Back And Body 2 tab PO Q6H PRN PRN Reason: Pain Discontinued Loratadine [Claritin] 10 mg PO DAILY Discharge Medication List Sivakumar Back And Body 2 tab PO Q6H PRN 02/28/18 [History] Multivitamins, Thera [Multivitamin (formulary)] 1 tab PO DAILY 02/28/18 [History ] Apixaban [Eliquis] 5 mg PO BID #60 tab 03/03/18 [Rx] Furosemide [Lasix] 40 mg PO DAILY #30 tablet 03/03/18 [Rx] Losartan [Cozaar] 50 mg PO DAILY #30 tab 03/03/18 [Rx] Methimazole [Tapazole] 5 mg PO TID #90 tab 03/03/18 [Rx] Metoprolol Tartrate [Lopressor] 100 mg PO BID #60 tab 03/03/18 [Rx] Potassium Chloride ER [K-Dur 10] 10 meq PO DAILY #30 tab 03/03/18 [Rx] Follow up Appointment(s)/Referral(s): Primo Ceballos MD [STAFF PHYSICIAN] - 03/24/18 4:00 pm (Follow Dr. Dacosta/ [facility] Nurse practitioner in 4 weeks) Jonnathan Ward MD [REFERRING] - 1 Week Edison Mendoza MD [REFERRING] - 1 Week Mady Montague MD [Primary Care Provider] - 03/09/18 11:00 am () Ambulatory/Diagnostic Orders: Basic Metabolic Panel [LAB.AMB] Time Frame: 3 Days, Location: Determined By Patient Basic Metabolic Panel [LAB.AMB] Time Frame: 3 Days, Location: Determined By Patient Patient Instructions/Handouts: A-fib (Atrial Fibrillation) (DC), Hyperthyroidism (DC), Pleural Effusion (DC), Safe Use of Anticoagulants (DC) Activity/Diet/Wound Care/Special Instructions: Pts Maddiegalen linares is $41/month. Free month filled at our pharmacy. Discharge Disposition: HOME SELF-CARE
--- NOTE | 2018-03-03 13:55 | P.PN ---
Subjective Progress Note Date: 03/03/18 This is a pleasant 67-year-old female with history of hypertension, untreated, nondiabetic, no hyperlipidemia, nonsmoker, rheumatoid and osteoarthritis history, patient has attempted several different medications for her rheumatoid arthritis over the years but has been unable to tolerate them. She presents to the hospital on this occasion with symptoms of progressively worsening shortness of breath which she states has been going on for quite some time. She recently was established with Dr. Montague, she went to see her in the office with the complaints of the shortness of breath yesterday, and EKG was performed which revealed atrial fibrillation with rapid ventricular response, and for this reason patient was admitted to the hospital for further evaluation and treatment. Chest x-ray on arrival here showed bilateral pleural effusions, cardiomegaly without overt heart failure. EKG showed atrial fibrillation with a rapid ventricular response. Patient states she has been told over the years to have some irregularity in heart beat but never has been told to have atrial fibrillation prior to this. She also states that she has worn a heart monitor several times in the past as an outpatient which never seemed to detect any atrial fibrillation. Subsequent EKG White blood cell count 6.7, hemoglobin 10.3 , platelet count 171. Sodium 143, potassium 4.1, BUN 16, creatinine 0.6. Magnesium 1.8. Troponins 0.017, 0.026, 0.025. TSH 0.015. At the time of my examination this morning, patient states that she feels her breathing is even worse than when she came in yesterday. The patient had been given a one-time dose of IV Lasix on admission here, and her weight is down 2 kg from admission. 03/03/2018 Patient seen and examined this morning, feels well, hemodynamically stable. Continues to be in atrial fibrillation with a controlled ventricular response. Objective - Vital Signs Vital signs: Vital Signs Temp 98.1 F 03/03/18 11:35 Pulse 105 H 03/03/18 11:35 Resp 16 03/03/18 11:35 BP 133/94 03/03/18 11:35 Pulse Ox 97 03/03/18 11:35 Intake & Output 03/02/18 03/03/18 03/03/18 18:59 06:59 18:59 Intake Total 768 Balance 768 Weight 48.7 kg Intake: Oral 768 Other: Voiding Method Toilet Toilet # Voids 3 1 1 # Bowel Movements 1 - Exam PHYSICAL EXAMINATION: GENERAL: 67-year-old female appears to be short of breath at the time of my examination. HEENT: Head is atraumatic, normocephalic. Pupils equal, round. Sclera anicteric. Conjunctiva are clear. Mucous membranes of the mouth are moist. Neck is supple. There is elevated jugular venous pressure.] bruit is heard. HEART EXAMINATION: Heart S1 and S2 irregularly irregular diastolic murmur is heard. CHEST EXAMINATION: Lungs are clear with diminished air entry to bilateral bases. ABDOMEN: Soft, nontender. Bowel sounds are heard. No organomegaly noted. EXTREMITIES: 2+ peripheral pulses with no evidence of peripheral edema and no calf tenderness noted. NEUROLOGIC patient is awake, alert and oriented -3. . - Labs CBC & Chem 7: 03/03/18 05:30 03/03/18 05:30 Labs: Abnormal Lab Results - Last 24 Hours (Table) 03/03/18 03/03/18 Range/Units 05:30 05:30 Hgb 9.9 L (11.4-16.0) gm/dL Hct 32.2 L (34.0-46.0) % MCV 77.7 L (80.0-100.0) fL MCH 23.8 L (25.0-35.0) pg MCHC 30.6 L (31.0-37.0) g/dL RDW 17.0 H (11.5-15.5) % Calcium 8.3 L (8.4-10.2) mg/dL Assessment and Plan Plan: Assessment and plan #1 symptoms of progressively worsening shortness of breath, evidence of bilateral pleural effusions on chest x-ray. Patient received a one-time dose of IV Lasix. Could also be exasperated by A. zahira with RVR. #2 atrial fibrillation with rapid ventricular response, new diagnosis for the patient. Chronic persistent. #3 hypertension, untreated #4 rheumatoid and osteoarthritis #5 hyperthyroidism Plan From cardiology's perspective, patient may be able to be discharged home today. We will make her a follow-up appointment to see Dr. Ceballos in the office post discharge. DNP note has been reviewed, I agree with a documented findings and plan of care. Patient was seen and examined.
[2018-03-04] MEDS ORDERED: FUROSEMIDE 40 MG TAB PO SCH (09:00)
== END 2018-03-03 14:32 | disposition home or self-care (01) | DRG 309 ==
LOC: EC 16:04 → 6SEL 17:59
PROVIDERS: ADMIT Internal Medicine; ATTEND Internal Medicine
DX: I48.2 Chronic atrial fibrillation (principal); I50.30 Unspecified diastolic (congestive) heart failure; I48.1 Persistent atrial fibrillation; I48.92 Unspecified atrial flutter; E05.90 Thyrotoxicosis, unspecified without thyrotoxic crisis or storm; I11.0 Hypertensive heart disease with heart failure; I34.0 Nonrheumatic mitral (valve) insufficiency; M06.9 Rheumatoid arthritis, unspecified; M19.90 Unspecified osteoarthritis, unspecified site; M79.7 Fibromyalgia; Z90.710 Acquired absence of both cervix and uterus; Z88.1 Allergy status to other antibiotic agents; Z88.5 Allergy status to narcotic agent
CPT/HCPCS: 36415; 71046; 80048; 80053; 82550; 82553; 83735; 83880; 84439; 84443; 84484; 85025; 85610; 85730; 93005; 93306; 94760; 96365; 96366; 96368; 96375; 96376; 99291

== ENCOUNTER → 2018-03-17 | Outpatient (CLI) | payer MEDICARE ==
--- NOTE | 2018-03-17 15:32 | US ---
EXAMINATION TYPE: US thyroid st tissue head/neck DATE OF EXAM: 03/17/2018 COMPARISON: NONE CLINICAL HISTORY: 67-year-old female E05.00 Thyrotoxicosis with diffuse goiter without; patient state d just began thyroid medication TECHNIQUE: Multiple sonographic images of the thyroid gland are obtained. FINDINGS: GLAND SIZE: Right Lobe: 4.5 x 1.8 x 2.1 cm Overall Parenchyma: heterogenous Left Lobe: 3.8 x 1.7 x 2.0 cm Overall Parenchyma: heterogeneous Isthmus Thickness: 0.5 cm NODULES RIGHT: # of nodules measured on right: 2 1. 0.2 X 0.3 x 0.2 cm hyperechoic solid nodule at the lower pole with well-defined margins. This n odule is wider than tall and shows no intranodular vascularity. 2. 0.5 X 0.5 x 0.5 cm hyperechoic solid nodule at the lower medial pole with well-defined margins. This nodule is wide as is tall and shows intranodular vascularity. LEFT: # of nodules measured on left: 2 1. 0.9 X 0.7 x 0.8 cm isoechoic solid nodule at the mid pole with well-defined margins. This nodul e is taller than wide and shows no intranodular vascularity. 2. 0.4 X 0.3 x 0.4 cm hyperechoic solid nodule with posterior shadowing at the lower pole with irreg ular margins; present with calcifications. This nodule is taller than wide and shows no intranodular vascularity. ISTHMUS: # of nodules measured in the isthmus: 0 Bilateral neck scanned, no evidence of lymphadenopathy. IMPRESSION: Heterogeneous gland with 2 solid nodules on each side. The largest measures 9 mm on the left. The sec ond nodule on the left measures only 4 mm but is somewhat irregular with calcifications. Follow-up ca n be performed.
== END | disposition home or self-care (01) ==
LOC: RADUSWWP 14:11
PROVIDERS: ATTEND Internal Medicine Endocrinology, Diabetes & Metabolism
DX: E05.20 Thyrotoxicosis with toxic multinodular goiter without thyrotoxic crisis or storm (principal)
CPT/HCPCS: 76536

== ENCOUNTER 2024-01-10 16:24 | Inpatient (IN) | payer MEDICARE ==
--- NOTE | 2024-01-10 17:28 | ED ---
General Adult HPI - General Chief complaint: Altered Mental Status Stated complaint: high blood pressure Time Seen by Provider: 01/10/24 17:00 Source: patient, RN notes reviewed, old records reviewed Mode of arrival: ambulatory - History of Present Illness Initial comments: This is a 73-year-old female who presents to the emergency department because she had been altered at home according to the grandson. Patient states she also had a bad headache but is better now. Grandson states that when she was baking at home the grandmother was burning some of the cookies and under cooking others. Patient also was leaving the faucet on and leaving of an open which is atypical of her and when he got there she was just sitting in a chair kind of staring off into space and only slowly responding. Patient denies any chest pain palpitation difficulty breathing shortness of breath patient has any fever chills or cough. Patient's son arrives and states that her mom is not always compliant with her medication. Patient denies any back pain. Patient has any injury or trauma. Patient [place] any nausea or vomiting. - Related Data Home Medications Medication Instructions Recorded Confirmed Aspirin EC [Ecotrin Low Dose] 81 mg PO DAILY 01/10/24 01/10/24 Back And Body (Sivakumar) Caffeine 2 tab PO Q6H PRN 01/10/24 01/10/24 32.5 Mg + Aspirin 500mg Losartan Potassium [Cozaar] 100 mg PO DAILY 01/10/24 01/10/24 Metoprolol Tartrate [Lopressor] 100 mg PO BID 01/10/24 01/10/24 diphenhydrAMINE [Benadryl] 25 mg PO Q6H PRN 01/10/24 01/10/24 hydroCHLOROthiazide [Hydrodiuril] 12.5 mg PO DAILY 01/10/24 01/10/24 methIMAzole [Tapazole] 5 mg PO DAILY 01/10/24 01/10/24 Allergies Allergy/AdvReac Type Severity Reaction Status Date / Time ciprofloxacin [From Cipro] Allergy Rash/Hives Verified 01/10/24 17:59 acetaminophen AdvReac Hallucinati Verified 01/10/24 17:59 [From Darvocet-N] ons propoxyphene AdvReac Hallucinati Verified 01/10/24 17:59 [From Darvocet-N] ons Review of Systems ROS Statement: Those systems with pertinent positive or pertinent negative responses have been documented in the HPI. ROS Other: All systems not noted in ROS Statement are negative. Past Medical History Past Medical History: Fibromyalgia, Hypertension, Osteoarthritis (OA), Rheumatoid Arthritis (RA) Additional Past Medical History / Comment(s): Arthritis History of Any Multi-Drug Resistant Organisms: None Reported Past Surgical History: Hysterectomy, Orthopedic Surgery Past Psychological History: No Psychological Hx Reported Past Alcohol Use History: None Reported Past Drug Use History: None Reported General Exam - General Exam Comments Initial Comments: GENERAL: Patient is well-developed and well-nourished. Patient is nontoxic and well- hydrated and is in mild distress. ENT: Neck is soft and supple. No significant lymphadenopathy is noted. Oropharynx is clear. Moist mucous membranes. Neck has full range of motion without eliciting any pain. EYES: The sclera were anicteric and conjunctiva were pink and moist. Extraocular movements were intact and pupils were equal round and reactive to light. Eyelids were unremarkable. PULMONARY: Unlabored respirations. Good breath sounds bilaterally. No audible rales rhonchi or wheezing was noted. CARDIOVASCULAR: There is a regular rate and rhythm without any murmurs gallops or rubs. ABDOMEN: Soft and nontender with normal bowel sounds. SKIN: Skin is clear with no lesions or rashes and otherwise unremarkable. NEUROLOGIC: Patient is alert and oriented x3. Cranial nerves II through XII are grossly int act. Motor and sensory are also intact. Normal speech, volume and content. Symmetrical smile. Patient has an NIH is 0 MUSCULOSKELETAL: Normal extremities with adequate strength and full range of motion. LYMPHATICS: No significant lymphadenopathy is noted PSYCHIATRIC: Normal psychiatric evaluation. Course Vital Signs 01/10/24 01/10/24 01/10/24 16:50 17:38 18:10 Temperature 97.6 F Pulse Rate 93 Respiratory 16 16 Rate Blood Pressure 229/142 224/130 172/112 O2 Sat by Pulse 98 97 Oximetry 01/10/24 01/10/24 01/10/24 18:30 18:45 19:44 Temperature 98.1 F Pulse Rate 87 112 H 93 Respiratory 18 17 18 Rate Blood Pressure 172/106 174/102 184/127 O2 Sat by Pulse 97 95 96 Oximetry 01/10/24 01/10/24 20:01 20:31 Temperature 97.7 F Pulse Rate 83 92 Respiratory 15 15 Rate Blood Pressure 180/108 146/88 O2 Sat by Pulse 96 96 Oximetry Medical Decision Making - Medical Decision Making EKG is interpreted by myself. EKG shows atrial fibrillation at 82 bpm QRS is 105 QT interval is 385 QTc is 424. Patient's EKG shows no ST segment ovation or depression Was pt. sent in by a medical professional or institution (, PA, STITCHING MACHINE OPERATOR, urgent care, hospital, or skilled nursing...) When possible be specific @ -No Did you speak to anyone other than the patient for history (EMS, parent, family, police, friend...)? What history was obtained from this source @ -The grandson told us why he called EMS Did you review nursing and triage notes (agree or disagree)? Why? @ -I reviewed and agree with nursing and triage notes Were old charts reviewed (outside hosp., previous admission, EMS record, old EKG, old radiological studies, urgent care reports/EKG's, skilled nursing records)? Report findings @ -I compared today's lab work with previous lab work and I saw no significant change in white count hemoglobin or electrolytes. Differential Diagnosis (chest pain, altered mental status, abdominal pain women, abdominal pain men, vaginal bleeding, weakness, fever, dyspnea, syncope, headache, dizziness, GI bleed, back pain, seizure, CVA, palpatations, mental health, musculoskeletal)? @ -Not applicable EKG interpreted by me (3pts min.). @ -As above X-rays interpreted by me (1pt min.). @ -Chest x-ray shows no acute normality CT interpreted by me (1pt min.). @ -CT of the brain shows a questionable fusiform prominence of the basilar artery and possible left posterior communicating artery. CTA will be ordered U/S interpreted by me (1pt. min.). @ -None done What testing was considered but not performed or refused? (CT, X-rays, U/S, labs)? Why? @ -None What meds were considered but not given or refused? Why? @ -None Did you discuss the management of the patient with other professionals (professionals i.e. , [employer], STITCHING MACHINE OPERATOR, lab, RT, psych nurse, social media project manager, talent acquisition associate, teacher, school resource officer, skilled nursing case manager)? Give summary @ -I spoke with Dr. Vargas he agreed to admit the patient Was smoking cessation discussed for >3mins.? @ -No Was critical care preformed (if so, how long)? @ -No Were there social determinants of health that impacted care today? How? (Homelessness, low income, unemployed, alcoholism, drug addiction, tr ansportation, low edu. Level, literacy, decrease access to med. care, shelter, rehab)? @ -No Was there de-escalation of care discussed even if they declined (Discuss DNR or withdrawal of care, Hospice)? DNR status @ -No What co-morbidities impacted this encounter? (DM, HTN, Smoking, COPD, CAD, Cancer, CVA, ARF, Chemo, Hep., AIDS, mental health diagnosis, sleep apnea, morbid obesity)? @ -None Was patient admitted / discharged? Hospital course, mention meds given and route, prescriptions, significant lab abnormalities, going to OR and other pertinent info. @ -Patient had hypertensive emergency and I gave her 20 of hydralazine and followed up with 10 more little later on patient's blood pressure did come down she was feeling much better and acting much more to her baseline. CT scan did show a questionable fusiform prominence around the basilar and posterior communicating artery. I will be admitting the patient to Dr. Vargas and consult neurology and cardiology. After I admitted the patient went back and discussed results with family and the patient and family mention to me that the patient had facial droop now and asked the family how long has this been occurring the son stated that it occurred just after I left the room the first time and they were giving the patient hypertensive meds. Patient continues to have good facial droop. Patient's outside the TNKase window as well as she has a contraindications secondary to blood pressure. The risks far outweigh the benefits at this point. CT angiogram will be followed up and if any clot is noted neuro interventionalists will be contacted Undiagnosed new problem with uncertain prognosis? @ -No Drug Therapy requiring intensive monitoring for toxicity (Heparin, Nitro, Insulin, Cardizem)? @ -No Were any procedures done? @ -No Diagnosis/symptom? @ -Hypertensive emergency Acute, or Chronic, or Acute on Chronic? @ -Acute Uncomplicated (without systemic symptoms) or Complicated (systemic symptoms)? @ -Comp Side effects of treatment? @ -No Exacerbation, Progression, or Severe Exacerbation? @ -No Poses a threat to life or bodily function? How? (Chest pain, USA, IA, pneumonia, PE, COPD, DKA, ARF, appy, cholecystitis, CVA, Diverticulitis, Homicidal, Suicidal, threat to staff... and all critical care pts) @ -Yes this could lead to a CVA and endorgan dysfunction Diagnosis/symptom? @ -Altered mental status Acute, or Chronic, or Acute on Chronic? @ -Acute Uncomplicated (without systemic symptoms) or Complicated (systemic symptoms)? @ -Complicated Side effects of treatment? @ -None Exacerbation, Progression, or Severe Exacerbation] @ -No Poses a threat to life or bodily function? @ -Yes this could lead to a CVA and significant morbidity Diagnosis/symptom? @ -CVA Acute, or Chronic, or Acute on Chronic? @ -Acute Uncomplicated (without systemic symptoms) or Complicated (systemic symptoms)? @ -Complicated Side effects of treatment? @ -None Exacerbation, Progression, or Severe Exacerbation] @ -No Poses a threat to life or bodily function? @ -Yes this could lead to a massive stroke and - Lab Data Result diagrams: 01/10/24 17:35 01/10/24 17:35 Lab Results 01/10/24 01/10/24 01/10/24 Range/Units 17:35 17:35 17:35 WBC 7.2 (3.8-10.6) k/uL RBC 4.69 (3.80-5.40) m/uL Hgb 14.3 (11.4-16.0) gm/dL Hct 44.1 (34.0-46.0) % MCV 93.9 (80.0-100.0) fL MCH 30.5 (25.0-35.0) pg MCHC 32.5 (31.0-37.0) g/dL RDW 14.5 (11.5-15.5) % Plt Count 161 (150-450) k/uL MPV 8.6 Neutrophils % 78 % Lymphocytes % 10 % Monocytes % 6 % Eosinophils % 4 % Basophils % 1 % Neutrophils # 5.6 (1.3-7.7) k/uL Lymphocytes # 0.7 L (1.0-4.8) k/uL Monocytes # 0.4 (0-1.0) k/uL Eosinophils # 0.3 (0-0.7) k/uL Basophils # 0.1 (0-0.2) k/uL PT 11.2 (10.0-12.5) sec INR 1.0 (<1.2) APTT 27.5 (22.0-30.0) sec Sodium 134 L (137-145) mmol/L Potassium 3.9 (3.5-5.1) mmol/L Chloride 105 (98-107) mmol/L Carbon Dioxide 21 L (22-30) mmol/L Anion Gap 8 mmol/L BUN 20 H (7-17) mg/dL Creatinine 0.75 (0.52-1.04) mg/dL Est GFR (CKD-EPI)AfAm >90 (>60 ml/min/1.73 sqM) Est GFR (CKD-EPI)NonAf 79 (>60 ml/min/1.73 sqM) Glucose 168 H (74-99) mg/dL Calcium 9.4 (8.4-10.2) mg/dL Total Bilirubin 0.6 (0.2-1.3) mg/dL AST 38 H (14-36) U/L ALT 14 (4-34) U/L Alkaline Phosphatase 81 (38-126) U/L Troponin I (0.000-0.034) ng/mL Total Protein 7.2 (6.3-8.2) g/dL Albumin 4.2 (3.5-5.0) g/dL TSH 2.750 (0.465-4.680) mIU/L Urine Color Urine Appearance (Clear) Urine pH (5.0-8.0) Ur Specific [place] (1.001-1.035) Urine Protein (Negative) Urine Glucose (UA) (Negative) Urine Ketones (Negative) Urine Blood (Negative) Urine Nitrite (Negative) Urine Bilirubin (Negative) Urine Urobilinogen (<2.0) mg/dL Ur Leukocyte Esterase (Negative) Urine RBC (0-5) /hpf Urine WBC (0-5) /hpf Ur Squamous Epith Cells (0-4) /hpf Hyaline Casts (0-2) /lpf Urine Opiates Screen (NotDetected) Ur Oxycodone Screen (NotDetected) Urine Methadone Screen (NotDetected) Ur Barbiturates Screen (NotDetected) U Tricyclic Antidepress (NotDetected) Ur Phencyclidine Scrn (NotDetected) Ur Amphetamines Screen (NotDetected) U Methamphetamines Scrn (NotDetected) U Benzodiazepines Scrn (NotDetected) Urine Cocaine Screen (NotDetected) U Marijuana (THC) Screen (NotDetected) 01/10/24 01/10/24 01/10/24 Range/Units 17:35 18:25 18:25 WBC (3.8-10.6) k/uL RBC (3.80-5.40) m/uL Hgb (11.4-16.0) gm/dL Hct (34.0-46.0) % MCV (80.0-100.0) fL MCH (25.0-35.0) pg MCHC (31.0-37.0) g/dL RDW (11.5-15.5) % Plt Count (150-450) k/uL MPV Neutrophils % % Lymphocytes % % Monocytes % % Eosinophils % % Basophils % % Neutrophils # (1.3-7.7) k/uL Lymphocytes # (1.0-4.8) k/uL Monocytes # (0-1.0) k/uL Eosinophils # (0-0.7) k/uL Basophils # (0-0.2) k/uL PT (10.0-12.5) sec INR (<1.2) APTT (22.0-30.0) sec Sodium (137-145) mmol/L Potassium (3.5-5.1) mmol/L Chloride (98-107) mmol/L Carbon Dioxide (22-30) mmol/L Anion Gap mmol/L BUN (7-17) mg/dL Creatinine (0.52-1.04) mg/dL Est GFR (CKD-EPI)AfAm (>60 ml/min/1.73 sqM) Est GFR (CKD-EPI)NonAf (>60 ml/min/1.73 sqM) Glucose (74-99) mg/dL Calcium (8.4-10.2) mg/dL Total Bilirubin (0.2-1.3) mg/dL AST (14-36) U/L ALT (4-34) U/L Alkaline Phosphatase (38-126) U/L Troponin I <0.012 (0.000-0.034) ng/mL Total Protein (6.3-8.2) g/dL Albumin (3.5-5.0) g/dL TSH (0.465-4.680) mIU/L Urine Color Colorless Urine Appearance Clear (Clear) Urine pH 6.5 (5.0-8.0) Ur Specific [place] 1.008 (1.001-1.035) Urine Protein 1+ H (Negative) Urine Glucose (UA) Negative (Negative) Urine Ketones Negative (Negative) Urine Blood Negative (Negative) Urine Nitrite Negative (Negative) Urine Bilirubin Negative (Negative) Urine Urobilinogen <2.0 (<2.0) mg/dL Ur Leukocyte Esterase Small H (Negative) Urine RBC 1 (0-5) /hpf Urine WBC 3 (0-5) /hpf Ur Squamous Epith Cells 1 (0-4) /hpf Hyaline Casts 1 (0-2) /lpf Urine Opiates Screen Not Detected (NotDetected) Ur Oxycodone Screen Not Detected (NotDetected) Urine Methadone Screen Not Detected (NotDetected) Ur Barbiturates Screen Not Detected (NotDetected) U Tricyclic Antidepress Not Detected (NotDetected) Ur Phencyclidine Scrn Not Detected (NotDetected) Ur Amphetamines Screen Not Detected (NotDetected) U Methamphetamines Scrn Not Detected (NotDetected) U Benzodiazepines Scrn Not Detected (NotDetected) Urine Cocaine Screen Not Detected (NotDetected) U Marijuana (THC) Screen Not Detected (NotDetected) Critical Care Time Critical Care Time: Yes Total Critical Care Time: 35 Disposition Clinical Impression: Hypertensive emergency, Altered mental status, CVA (cerebral vascular accident) Disposition: ADMITTED IP TO THIS [facility] Time of Disposition: 20:55
[2024-01-10 17:48] LABS: ALT 14 U/L (4-34); African American GFR (CKD) >90 (>60 ml/min/1.73 sqM); Anion Gap 8 mmol/L; Basophils # (A) 0.1 k/uL (0-0.2); Basophils % (A) 1 %; Blood Urea Nitrogen 20 mg/dL (7-17); Calcium 9.4 mg/dL (8.4-10.2); Carbon Dioxide 21 mmol/L (22-30); Chloride 105 mmol/L (98-107); Eosinophils # (A) 0.3 k/uL (0-0.7); Eosinophils % (A) 4 %; Glucose 168 mg/dL (74-99); HCT 44.1 % (34.0-46.0); HGB 14.3 gm/dL (11.4-16.0); Lymphocytes # (A) 0.7 k/uL (1.0-4.8); Lymphocytes % (A) 10 %; MCH 30.5 pg (25.0-35.0); MCHC 32.5 g/dL (31.0-37.0); MCV 93.9 fL (80.0-100.0); Mean Platelet Volume 8.6; Monocytes # (A) 0.4 k/uL (0-1.0); Monocytes % (A) 6 %; Neutrophils # (A) 5.6 k/uL (1.3-7.7); Neutrophils % (A) 78 %; Non-African American GFR(CKD) 79 (>60 ml/min/1.73 sqM); Platelet Count 161 k/uL (150-450); RBC 4.69 m/uL (3.80-5.40); RDW 14.5 % (11.5-15.5); Sodium 134 mmol/L (137-145); Total Bilirubin 0.6 mg/dL (0.2-1.3); WBC 7.2 k/uL (3.8-10.6)
[2024-01-10 17:51] LABS: AST 38 U/L (14-36); Alkaline Phosphatase 81 U/L (38-126); Partial Thromboplastin Time 27.5 sec (22.0-30.0); Potassium 3.9 mmol/L (3.5-5.1); Prothrombin Time 11.2 sec (10.0-12.5); Total Protein 7.2 g/dL (6.3-8.2)
[2024-01-10 17:52] LABS: Albumin 4.2 g/dL (3.5-5.0)
[2024-01-10] MEDS: hydrALAZINE HCL 20 MG/ML 1 ML VIAL IVP STA ×2 (17:57→19:53)
[2024-01-10] MEDS: SODIUM CHLORIDE 0.9% 500 ML 500 ML IV ONE (17:57)
--- NOTE | 2024-01-10 17:58 | XR ---
EXAMINATION TYPE: XR chest 2V DATE OF EXAM: 01/10/2024 COMPARISON: 02/28/2018 INDICATION: Altered mental status TECHNIQUE: Frontal and lateral views of the chest are obtained. FINDINGS: The heart size is mildly prominent, stable. The pulmonary vasculature is normal. The lungs are clear. IMPRESSION: 1. No acute pulmonary process. 2. Mild cardiomegaly
--- NOTE | 2024-01-10 18:04 | CT ---
EXAMINATION TYPE: CT brain wo con DATE OF EXAM: 01/10/2024 COMPARISON: None INDICATION: headache, htn DLP: 1093.8 mGycm, Automated exposure control for dose reduction was used. CONTRAST: None CT of the brain is performed utilizing 3 mm thick sections through the posterior fossa and 3 mm thick sections through the remaining calvarium. Study is performed within 24 hours of arrival to the hosp [place]. The basilar artery possibly left posterior communicating artery appears prominent. Some fusiform prom inence of these vessels may be present. Consider follow-up CTA or MRA [place] for additional evaluation. No abnormal hyperdensity is present to suggest an acute intracranial hemorrhage. No mass lesion is evident. No acute infarcts are evident. There is periventricular white matter hypodensity, likely on the basis of chronic white matter ischemic changes. Ventricles and sulci are appropriate for the patient age. Paranasal sinuses and mastoid air cells within the [id number] are clear. IMPRESSION: 1. Fusiform prominence of the basilar artery and possibly left posterior communicating artery. CTA [place] or MRA [place] further evaluate this finding. 2. Chronic. Mild periventricular white matter ischemic changes. 3 acute process is not otherwise evid ent. Follow-up MRI can be performed as clinically indicated.
[2024-01-10 18:40] LABS: Appearance,Urine Clear (Clear); Bilirubin,Urine Negative (Negative); Blood,Urine Negative (Negative); Color,Urine Colorless; Glucose,Urine (UA) Negative (Negative); Hyaline Casts,Urine 1 /lpf (0-2); Ketones,Urine Negative (Negative); Leukocyte Esterase,Urine Small (Negative); Nitrite,Urine Negative (Negative); PH, Urine 6.5 (5.0-8.0); Protein,Urine 1+ (Negative); RBC,Urine 1 /hpf (0-5); Specific Gravity,Urine 1.008 (1.001-1.035); Squamous Epithelial Cell,Urine 1 /hpf (0-4); Urobilinogen,Urine <2.0 mg/dL (<2.0); WBC,Urine 3 /hpf (0-5)
[2024-01-10 18:50] LABS: Amphetamine Screen,Urine Not Detected (NotDetected); Barbiturate Screen,Urine Not Detected (NotDetected); Benzodiazepines Screen,Urine Not Detected (NotDetected); Cocaine Screen,Urine Not Detected (NotDetected); Methadone Screen, Urine Not Detected (NotDetected); Opiate Screen,Urine Not Detected (NotDetected); Oxycodone Screen, Urine Not Detected (NotDetected); Phencyclidine Screen,Urine Not Detected (NotDetected); Tricyclic Antidepressant,Urine Not Detected (NotDetected); Urn Cannabinoid Scrn Not Detected (NotDetected)
[2024-01-10] MEDS: LORazepam 2 MG/ML INJ IV STA (19:54)
[2024-01-10] MEDS: ACETAMINOPHEN TAB 325 MG TAB PO STA (19:57)
--- NOTE | 2024-01-10 21:26 | CT ---
EXAMINATION TYPE: CT angio head neck DATE OF EXAM: 01/10/2024 8:40 PM COMPARISON: CT head without contrast earlier today. CLINICAL INDICATION:Female, 73 years old with history of Altered mental status; PHH, AMS. TECHNIQUE: Axially acquired helical CT angiogram of the head and neck was obtained with contrast. Axi al images are supplemented with 3D reconstructions [facility] NASCET criteria used. Contrast used: 65ml mL of Isovue 300 with IV Contrast, Oral contrast used: None. CT DLP: 416.7 mGycm, Automated exposure control for dose reduction was used. FINDINGS: CTA Neck: There is a 4 vessel branch pattern. Brachiocephalic artery, left common carotid artery, left vertebra l artery, left subclavian artery. Mild to moderate calcified and soft plaque of the aorta, mostly al jayesh the arch, with mild involvement of the proximal left vertebral artery resulting in mild narrowing . There is a small rounded focal outpouching of contrast seen along the left wall of the aortic arch image 52 series 401 which suggests a penetrating ulcer. No dissection flap is seen. Right carotid system: The brachiocephalic artery is patent. There is focus of calcific plaque at the proximal right subclavian artery without significant stenosis, this vessel is then patent. Origin of the right vertebral is patent. Proximal left common carotid is tortuous but normally patent. At the c arotid bifurcation there is mild mixed plaque with mild narrowing of the proximal external carotid ar jose. The internal carotid artery is patent. Left carotid system: The common carotid is patent. Mild calcific plaque at the carotid bifurcation an d proximal ICA without significant stenosis. The ECA is patent. Vertebral arteries: Left vertebral is tortuous at the base of the neck but is patent. Both vertebral arteries are patent throughout the neck to the skull base, without evidence of dissection or signific ant stenosis. The right vertebral is dominant. Other: Visualized neck soft tissues show no concerning abnormality. Thyroid appears somewhat heterog enous. No cervical masses or fluid collections. Moderate degenerative changes throughout the cervical spine. There is near complete interbody fusion between the C2-C3-C4 vertebral bodies and there is mo derate to severe facet disease at these levels. No clearly acute bony abnormality is shown. The included upper chest shows the heart to be moderately enlarged albeit incompletely seen. Grossly normal enhancement of the included pulmonary arteries. The imaged lungs show no acute infiltrate or p neumothorax. CTA Head: Intracranial ICAs are patent. Left carotid terminus is patent, left SOPHIA and MCA are normally patent. Small patent anterior communicating artery is suggested. On the right, carotid terminus is patent, ri ght MCA and SOPHIA appear patent. The intracranial vertebral arteries are patent. There is mild dolichoectasia suggested involving the V4 segment of the right vertebral and to a slightly lesser degree basilar artery. Basilar bifurcation is patent without suggestion of aneurysm. Bilateral [employer] tech proximally show slight dolichoectasia, the left TEXTILE CLOTHING AND FOOTWEAR MECHANIC is more tortuous, coursing anteriorly towards the ICA before coursing posteriorly. This vess el appears patent. There is no sizable left P-comm seen. There is a small patent right P-comm present . No intracranial large vessel occlusion, hemodynamically significant stenosis, aneurysm, dissection, o r arteriovenous malformation is shown. The dural venous sinuses are patent without evidence of thrombosis. There is a small ovoid filling de fect in the right transverse sinus outlined by contrast, compatible with arachnoid granulation. Other: Please refer to same-day CT head report for description of other findings. IMPRESSION: CTA neck: 1. Mild atherosclerotic disease, without evidence of hemodynamically significant stenosis, dissectio n, or pseudoaneurysm in the bilateral cervical carotid or vertebral arteries. 2. Mild to moderate calcified and soft plaque of the aorta, mostly along the arch, with mild involve ment of the proximal left vertebral artery resulting in mild narrowing. 3. Small rounded focal outpouching of contrast seen along the left wall of the aortic arch extending into soft plaque suggesting a penetrating ulcer. No dissection flap is seen. CTA head: 1. Mild dolichoectasia of the intracranial right vertebral artery, with lesser involvement suggested of the basilar artery and proximal [employer] tech. 2. No intracranial large vessel occlusion, significant stenosis, or sizable aneurysm detected in the limits of CTA.
[2024-01-10] MEDS: ASPIRIN 81 MG PO STA (21:51)
[2024-01-10] MEDS: SODIUM CHLORIDE 0.9% 1,000 ML IV ONE (21:52)
[2024-01-11] MEDS: HYDROcodone/APAP 5-325MG 1 EACH TAB PO STA (03:21)
--- NOTE | 2024-01-11 06:53 | P.HPIM ---
History of Present Illness H&P Date: 01/10/24 Chief Complaint: Altered mental status 73-year-old female with fibromyalgia, hypertension Patient unable to provide detailed history at this time due to confusion. Which was obtained by reviewing medical records and discussing the case with ED doctor. Family was not present at bedside time of my evaluation Patient typically at baseline per family takes care of everything around the house very active. Today she was cooking at home making some cookies and per the family she was under cooking some and burning others, was also leaving [employer] running which is very atypical behavior of hers. Per the grandson when he arrived home he found her sitting staring off into the blank with slow responses for which she grew concerned and decided to bring her to the hospital for evaluation At time of my evaluation patient is very slow to respond seems to be laying down in bed comfortably denies any chest pain or trouble breathing denies abdominal pain nausea vomiting denies any GI bleeding denies any diarrhea. During my exam she is very slow to respond very slow to move and then her speech was shaky difficult to understand. Per the family she is compliant with her medications normally very active they were concerned about a stroke reporting slurred speech at home Upon presentation to the ED she was found to have high blood pressure systolic 240/140 patient had a stroke workup in the ED CT scan of the brain showed no acute intracranial pathology however showed questionable fusiform left posterior basilar artery with recommendations to perform CTA of the head and neck, she was given hydralazine IV push in the ED which lowered her blood pressure to systolic of 180 EKG showed A-fib chest x-ray was showing mild cardiomegaly without any acute cardiopulmonary process Patient denies tobacco smoking illicit drugs or heavy alcohol Patient denies any falls or head injury review of systems Pertinent positives as noted in HPI. All other systems were reviewed and are negative on exam Constitutional: No acute distress, cooperative very slow to respond Eyes: Anicteric sclerae, moist conjunctiva, Pupils equal round dilated bilaterally reactive to light ENMT: NC/AT Oropharynx clear, no erythema, or exudates Neck: Supple, no masses, or JVD No carotid bruits No thyromegaly Lungs: Clear to auscultation Clear to percussion Normal respiratory effort, no accessory muscle use Cardiovascular: Heart regular in rate and rhythm, No murmurs, gallops, or rubs No peripheral edema Abdominal: Soft Nontender, no guarding, rebound or rigidity Abdomen moving with respiration Normoactive bowel sounds Extremities: No digital cyanosis No clubbing Pedal pulses intact and symmetrical Radial pulses intact and symmetrical No calf tenderness Psychiatric: Alert and oriented to person, place, slow to respond Neuro patient follows commands very slow to respond moving bilateral upper extremities purposefully and spontaneously, seems to be weak in bilateral legs with strength of 3 out of 5 bilaterally in the lower extremities and 4 out of 5 bilaterally in the upper extremities it was challenging to assess the cranial nerves as patient did not seem to understand my commands Past Medical History Past Medical History: Fibromyalgia, Hypertension, Osteoarthritis (OA), Rheumatoid Arthritis (RA) Additional Past Medical History / Comment(s): Arthritis History of Any Multi-Drug Resistant Organisms: None Reported Past Surgical History: Hysterectomy, Orthopedic Surgery Past Psychological History: No Psychological Hx Reported Past Alcohol Use History: None Reported Past Drug Use History: None Reported Medications and Allergies Home Medications Medication Instructions Recorded Confirmed Type Aspirin EC [Ecotrin Low Dose] 81 mg PO DAILY 01/10/24 01/10/24 History Back And Body (Sivakumar) Caffeine 2 tab PO Q6H PRN 01/10/24 01/10/24 History 32.5 Mg + Aspirin 500mg Losartan Potassium [Cozaar] 100 mg PO DAILY 01/10/24 01/10/24 History Metoprolol Tartrate [Lopressor] 100 mg PO BID 01/10/24 01/10/24 History diphenhydrAMINE [Benadryl] 25 mg PO Q6H PRN 01/10/24 01/10/24 History hydroCHLOROthiazide [Hydrodiuril] 12.5 mg PO DAILY 01/10/24 01/10/24 History methIMAzole [Tapazole] 5 mg PO DAILY 01/10/24 01/10/24 History Allergies Allergy/AdvReac Type Severity Reaction Status Date / Time ciprofloxacin [From Cipro] Allergy Rash/Hives Verified 01/10/24 17:59 acetaminophen AdvReac Hallucinati Verified 01/10/24 17:59 [From Darvocet-N] ons propoxyphene AdvReac Hallucinati Verified 01/10/24 17:59 [From Darvocet-N] ons Physical Exam Vitals: Vital Signs Temp Pulse Resp BP Pulse Ox 01/11/24 06:25 98.8 F 79 15 133/90 95 01/11/24 03:15 98.7 F 87 16 94 L 01/11/24 02:53 103 H 22 181/98 95 01/11/24 01:26 83 22 129/84 96 01/10/24 23:43 84 14 142/88 97 01/10/24 22:28 90 20 150/92 95 01/10/24 20:31 92 15 146/88 96 01/10/24 20:01 97.7 F 83 15 180/108 96 01/10/24 19:44 93 18 184/127 96 01/10/24 18:45 112 H 17 174/102 95 01/10/24 18:30 98.1 F 87 18 172/106 97 01/10/24 18:10 93 16 172/112 97 01/10/24 17:38 224/130 01/10/24 16:50 97.6 F 16 229/142 98 Intake and Output 01/10/24 01/10/24 01/11/24 14:59 22:59 06:59 Other: Weight 57.606 kg Results CBC & Chem 7: 01/10/24 17:35 01/10/24 17:35 Labs: Abnormal Lab Results - Last 24 Hours (Table) 01/10/24 01/10/24 01/10/24 Range/Units 17:35 17:35 18:25 Lymphocytes # 0.7 L (1.0-4.8) k/uL Sodium 134 L (137-145) mmol/L Carbon Dioxide 21 L (22-30) mmol/L BUN 20 H (7-17) mg/dL Glucose 168 H (74-99) mg/dL AST 38 H (14-36) U/L Urine Protein 1+ H (Negative) Ur Leukocyte Esterase Small H (Negative) Assessment and Plan Assessment: 73-year-old female with hypertension rheumatoid arthritis coming in for increased confusion slurred speech found to have elevated blood pressure I discussed case with ED doctor and accepted the admission for acute mental status change with malignant hypertension rule out stroke with anticipated length of stay more than 2 midnights Acute encephalopathy secondary to malignant hypertension rule out underlying stroke CT of the brain showed fusiform prominence of the basilar artery and possibly left posterior communicating artery, along with chronic mild periventricular white matter ischemic changes CT angio of the head and neck showed mild atherosclerotic disease without evidence of hemodynamically significant stenosis dissection or pseudoaneurysm in the bilateral cervical carotid or vertebral arteries. No intracranial large vessel occlusion hemodynamically significant stenosis aneurysm or dissection or arteriovenous malformations shown. Mild dolichoectasia of the intracranial right vertebral artery with lesser involvement suggested of the basilar artery and proximal [employer] Neuro consult Fall precautions PT/OT Systolic blood pressure was lowered from 2 40-1 80 in the ED with hydralazine pushes will monitor off blood pressure medications as blood pressure continues to drop currently systolic is 140 Swallow eval IV fluid hydration normal saline 75 cc/h Continue with aspirin Check echocardiogram History of hypothyroidism Continue with methimazole Continue with metoprolol 100 mg p.o. twice daily TSH 2.7 Incidental finding of small rounded focal outpouching of contrast seen along the left wall of the aortic arch on CTA of head and neck extending into soft plaque suggesting a penetrating ulcer no dissection flap is seen Cardiothoracic surgery consulted Blood work overall unremarkable with white count 7 hemoglobin 14 Sodium 134 potassium 3.9 BUN 20 creatinine 0.7 Troponin less than 0.012 Urine drug screen negative Urine analysis unremarkable Full code DVT prophylaxis heparin subcu 3 times daily
[2024-01-11] MEDS: ASPIRIN 325 MG TAB PO SCH (08:23)
[2024-01-11] MEDS: methIMAzole 5 MG TAB PO SCH (08:23)
[2024-01-11] MEDS: METOPROLOL TARTRATE 50 MG TAB PO SCH (08:23)
[2024-01-11] MEDS: HEPARIN SODIUM,PORCINE 5,000 UNIT/ML 1 ML VIAL SQ SCH (08:24)
[2024-01-11] MEDS: ONDANSETRON 4 MG/2 ML VIAL IVP PRN (08:49)
[2024-01-11] MEDS ORDERED: LOSARTAN 50 MG TAB PO SCH (09:00)
[2024-01-11] MEDS ORDERED: hydroCHLOROthiazide 12.5 MG CAP PO SCH (09:00)
--- NOTE | 2024-01-11 10:25 | P.GSCN ---
History of Present Illness Consult date: 01/11/24 Reason for Consult: Incidental finding on CTA of nonpenetrating aortic wall ulcer Requesting physician: Diego Vargas History of present illness: This is a 70-year-old female who follows outpatient with Dr. Valenzuela for primary care. She has a previous medical history of hypertension, atrial fibrillation not on anticoagulation due to history of bleeding in her eyes, and rheumatoid arthritis. Apparently yesterday she was baking at home with her grandson present, she began exhibiting atypical behavior including blank stares with slow response, as well as over and under cooking the cookies she was baking. As this was abnormal her grandson brought her to the emergency room. Her blood pressure was quite elevated with systolic blood pressure greater than 200. In the ER she was also noted to have left-sided facial droop and confusion. CBC was unremarkable, CMP revealed sodium 134, BUN 20, creatinine 0.75, AST 38, negative troponin. Urinalysis was negative except small amount leukocyte esterase and 1+ protein. Urine drug screen was negative. Chest x-ray demonstrated no acute pulmonary process. She underwent CTA of the brain demonstrating fusiform prominence of the basilar artery and possible left posterior communicating artery, as well as chronic mild periventricular white matter ischemic changes without acute process. CTA of the head and neck was also completed where there is a was an incidental finding of a small rounded focal outpouching of contrast seen along the left wall of the aortic arch extending into the soft plaque suggesting penetrating ulcer without evidence of dissection. Patient was to be admitted with consultation placed to cardiology, neurology, as well as cardiothoracic surgery. Review of Systems Review of systems was completed and was negative except as noted - Constitutional Reports weakness - Neurological Neurologic Comment(s): Left-sided facial droop, left arm weakness present Reports weakness Past Medical History Past Medical History: Atrial Fibrillation, Fibromyalgia, Hypertension, Osteoarthritis (OA), Rheumatoid Arthritis (RA), Thyroid Disorder History of Any Multi-Drug Resistant Organisms: None Reported Past Surgical History: Hysterectomy, Orthopedic Surgery Past Psychological History: No Psychological Hx Reported Smoking Status: Never smoker Past Alcohol Use History: None Reported Past Drug Use History: None Reported - Past Family History Mother Family Medical History: Hypertension Medications and Allergies Home Medications Medication Instructions Recorded Confirmed Type Aspirin EC [Ecotrin Low Dose] 81 mg PO DAILY 01/10/24 01/10/24 History Back And Body (Sivakumar) Caffeine 2 tab PO Q6H PRN 01/10/24 01/10/24 History 32.5 Mg + Aspirin 500mg Losartan Potassium [Cozaar] 100 mg PO DAILY 01/10/24 01/10/24 History Metoprolol Tartrate [Lopressor] 100 mg PO BID 01/10/24 01/10/24 History diphenhydrAMINE [Benadryl] 25 mg PO Q6H PRN 01/10/24 01/10/24 History hydroCHLOROthiazide [Hydrodiuril] 12.5 mg PO DAILY 01/10/24 01/10/24 History methIMAzole [Tapazole] 5 mg PO DAILY 01/10/24 01/10/24 History Allergies Allergy/AdvReac Type Severity Reaction Status Date / Time ciprofloxacin [From Cipro] Allergy Rash/Hives Verified 01/10/24 17:59 acetaminophen AdvReac Hallucinati Verified 01/10/24 17:59 [From Darvocet-N] ons propoxyphene AdvReac Hallucinati Verified 01/10/24 17:59 [From Darvocet-N] ons Surgical - Exam Vital Signs Temp Resp BP Pulse Ox 97.6 F 16 229/142 98 01/10/24 16:50 01/10/24 16:50 01/10/24 16:50 01/10/24 16:50 CONSTITUTIONAL: Awake and alert, appears comfortable, cooperative, well- developed, well-nourished, no pain, no acute distress EYES: Pupils equal, round, reactive to light, normal ocular movement ENT: Moist mucous membranes without oral lesions present NECK: No masses, no bruits, trachea midline RESPIRATORY: Lungs sounds clear to auscultation bilaterally. Respirations even, nonlabored. Currently on room air with oxygen saturation 95%. Strong cough. No chest wall deformities. No clubbing or cyanosis present CARDIOVASCULAR: S1, S2 present. Irregular rate and rhythm, controlled atrial fibrillation on telemetry. Palpable peripheral pulses bilaterally. No edema present. No calf pain or tenderness noted GASTROINTESTINAL: Abdomen soft, nontender, nondistended without masses or organomegaly noted. There is no rebound or guarding present. Active bowel sounds present 4 quadrants. GENITOURINARY: Deferred INTEGUMENTARY: Skin is warm and dry NEUROLOGIC: Cranial nerves II through XII intact, normal coordination, speech is normal, left-sided facial droop present, left arm weakness present MUSKULOSKELETAL: Able to move all extremities PSYCHIATRIC: Alert and oriented to person place and time, appropriate affect, intact judgment and insight Results - Labs 01/10/24 17:35 01/10/24 17:35 Abnormal Lab Results - Last 24 Hours (Table) 01/10/24 01/10/24 01/10/24 Range/Units 17:35 17:35 18:25 Lymphocytes # 0.7 L (1.0-4.8) k/uL Sodium 134 L (137-145) mmol/L Carbon Dioxide 21 L (22-30) mmol/L BUN 20 H (7-17) mg/dL Glucose 168 H (74-99) mg/dL AST 38 H (14-36) U/L Urine Protein 1+ H (Negative) Ur Leukocyte Esterase Small H (Negative) Diabetes panel 01/10/24 Range/Units 17:35 Sodium 134 L (137-145) mmol/L Potassium 3.9 (3.5-5.1) mmol/L Chloride 105 (98-107) mmol/L Carbon Dioxide 21 L (22-30) mmol/L BUN 20 H (7-17) mg/dL Creatinine 0.75 (0.52-1.04) mg/dL Glucose 168 H (74-99) mg/dL Calcium 9.4 (8.4-10.2) mg/dL AST 38 H (14-36) U/L ALT 14 (4-34) U/L Alkaline Phosphatase 81 (38-126) U/L Total Protein 7.2 (6.3-8.2) g/dL Albumin 4.2 (3.5-5.0) g/dL Thyroid panel 01/10/24 Range/Units 17:35 TSH 2.750 (0.465-4.680) mIU/L Calcium panel 01/10/24 Range/Units 17:35 Calcium 9.4 (8.4-10.2) mg/dL Albumin 4.2 (3.5-5.0) g/dL Pituitary panel 01/10/24 Range/Units 17:35 Sodium 134 L (137-145) mmol/L Potassium 3.9 (3.5-5.1) mmol/L Chloride 105 (98-107) mmol/L Carbon Dioxide 21 L (22-30) mmol/L BUN 20 H (7-17) mg/dL Creatinine 0.75 (0.52-1.04) mg/dL Glucose 168 H (74-99) mg/dL Calcium 9.4 (8.4-10.2) mg/dL TSH 2.750 (0.465-4.680) mIU/L Adrenal panel 01/10/24 Range/Units 17:35 Sodium 134 L (137-145) mmol/L Potassium 3.9 (3.5-5.1) mmol/L Chloride 105 (98-107) mmol/L Carbon Dioxide 21 L (22-30) mmol/L BUN 20 H (7-17) mg/dL Creatinine 0.75 (0.52-1.04) mg/dL Glucose 168 H (74-99) mg/dL Calcium 9.4 (8.4-10.2) mg/dL Total Bilirubin 0.6 (0.2-1.3) mg/dL AST 38 H (14-36) U/L ALT 14 (4-34) U/L Alkaline Phosphatase 81 (38-126) U/L Total Protein 7.2 (6.3-8.2) g/dL Albumin 4.2 (3.5-5.0) g/dL - Imaging Chest x-ray: report reviewed, image reviewed EKG: image reviewed Additional studies: Brain CT and CTA of head and neck reviewed Assessment and Plan Assessment: Incidental finding on CTA of nonpenetrating aortic wall ulcer Confusion at home, left-sided facial droop, left sided weakness, rule out stroke Hypertensive emergency present on admission with history of hypertension, better controlled now Atrial fibrillation not on anticoagulation due to history of bleeding in her eyes Rheumatoid arthritis Plan: The patient was seen and examined in the emergency room laying on the cart with son present. Chart/diagnostics reviewed. She is currently in no distress, denies any pain or shortness of breath, alert and oriented x 3. She does continue to have some left-sided facial droop and left arm weakness. Case discussed in detail with Dr. Barrera. At this time no surgical intervention recommended, would recommend tight blood sugar control, follow up CT scan in 6 months. Appreciate recommendations from cardiology and neurology. Increase activity as tolerated. Recommend PT/OT evaluation. Medical management of other comorbidities per internal medicine, cardiology, neurology. More recommendations to follow. Thank you Dr. Vargas for this consult. Please call us with any further questions. I have personally seen and examined the patient, performed the documentation and the assessment and plan as written. Number of minutes spent on the visit: 30. MELODY GreenbergC
--- NOTE | 2024-01-11 11:44 | P.CRDCN ---
History of Present Illness Consult date: 01/11/24 Consult reason: hypertension (Emergency) History of present illness: History of present illness: This is a 73-year-old female with past medical history of persistent atrial fibrillation, Graves' disease, hypertension. We have been asked to evaluate the patient for hypertensive emergency. Patient presented to the hospital with a blood pressure of 229/142. She is status post hydralazine 20 mg IV push followed by 10 mg IV push. Home medications have not been resumed and blood pressure is currently 137/85. Family state that patient was not acting right at home and had left sided weakness that is improved today. Patient denies feeling abnormal and denies weakness. Patient was on Eliquis in the past but stopped due to significant bruising. She was last seen in the office with Dr. Ceballos in 2019. Blood pressure readings are fluctuating. Dr. Mccann discussed in detail with the patient and son the need for anticoagulation to prevent further TIA/CVA and discussed option of watchman procedure in the future. Patient is also seeing a retinal specialist and has had retinal bleedng with treatments which is a concern voiced by patient's son but should not interfere with anticoagulation. EKG atrial fibrillation at 82 bpm Chest x-ray: No acute process. Mild cardiomegaly. CT of the brain fusiform prominence of the basilar artery and possible left posterior communicating artery. Chronic mild periventricular white matter ischemic changes. CT angiogram of the head and neck reveals no evidence of stenosis, dissection, pseudoaneurysm in the bilateral cervical carotid or vertebral arteries. Soft plaque of the aorta with mild involve the proximal left vertebral artery resulting in mild narrowing. Small rounded focal outpouching of contrast in the left wall of the aortic arch extending into soft plaque suggesting a penetrating ulcer.. Mild dolichoectasia of the intracranial right vertebral artery with lesser involvement suggestive the basilar artery and proximal head worker. No intracranial large vessel occlusion, stenosis, sizable aneurysm detected. CBC, INR unremarkable. Sodium 134, potassium 3.9, BUN 20 creatinine 0.75. Glu cose 168. AST 38, troponin negative x 1. TSH 2.75. Drug screen negative. Urinalysis negative for infection. Home cardiac medications: Aspirin 81 mg daily, hydrochlorothiazide 12.5 mg daily, losartan 100 mg daily, Lopressor 100 mg twice daily. Review Of Systems: At the time of my exam: CONSTITUTIONAL: Denies fever or chills. HEENT: Denies blurred vision, vision changes, or eye pain. Denies hemoptysis CARDIOVASCULAR: Denies chest pain. Denies orthopnea. Denies PND. Denies palpitations RESPIRATORY: Denies shortness of breath. GASTROINTESTINAL: Denies abdominal pain. Denies nausea or vomiting. HEMATOLOGIC: Denies bleeding disorders. GENITOURINARY: Denies any blood in urine. SKIN: Denies pruitis. Denies rash. Physical examination: Gen: This is a 73-year-old female in no acute distress VS: reviewed blood pressure 137/85-182/114, heart rate 87, pulse ox 95% on room air. HEENT: Head is atraumatic, normocephalic. Pupils equal, round. Sclerae is anicteric. NECK: Supple. No JVD. LUNGS: Clear to auscultation. No wheezes or rhonchi. No intercostal retractions. HEART: Regular rate and rhythm. No murmur. ABDOMEN: Soft No tenderness. EXTREMITIES: No pedal edema. No calf tenderness. NEUROLOGICAL: Patient is awake, alert. Assessment: Possible CVA/TIA Hypertensive emergency Possible aortic arch ulcer, patient seen by CTS Persistent atrial fibrillation Graves' disease History of hypertension Plan: Resume patient's home cardiac medications Monitor blood pressure closely We will plan to start anticoagulation if cleared by neurology Obtain 2-D echocardiogram and Doppler study to assess cardiac structure and function Further recommendations to follow based upon clinical course Thank you kindly for this consultation. Nurse practitioner note has been reviewed, I agree with documented findings and plan of care. Patient was seen and examined. Past Medical History Past Medical History: Fibromyalgia, Hypertension, Osteoarthritis (OA), Rheumatoid Arthritis (RA) Additional Past Medical History / Comment(s): Arthritis History of Any Multi-Drug Resistant Organisms: None Reported Past Surgical History: Hysterectomy, Orthopedic Surgery Past Psychological History: No Psychological Hx Reported Past Alcohol Use History: None Reported Past Drug Use History: None Reported - Past Family History Mother Family Medical History: Hypertension Medications and Allergies Home Medications Medication Instructions Recorded Confirmed Type Aspirin EC [Ecotrin Low Dose] 81 mg PO DAILY 01/10/24 01/10/24 History Back And Body (Sivakumar) Caffeine 2 tab PO Q6H PRN 01/10/24 01/10/24 History 32.5 Mg + Aspirin 500mg Losartan Potassium [Cozaar] 100 mg PO DAILY 01/10/24 01/10/24 History Metoprolol Tartrate [Lopressor] 100 mg PO BID 01/10/24 01/10/24 History diphenhydrAMINE [Benadryl] 25 mg PO Q6H PRN 01/10/24 01/10/24 History hydroCHLOROthiazide [Hydrodiuril] 12.5 mg PO DAILY 01/10/24 01/10/24 History methIMAzole [Tapazole] 5 mg PO DAILY 01/10/24 01/10/24 History Allergies Allergy/AdvReac Type Severity Reaction Status Date / Time ciprofloxacin [From Cipro] Allergy Rash/Hives Verified 01/10/24 17:59 acetaminophen AdvReac Hallucinati Verified 01/10/24 17:59 [From Darvocet-N] ons propoxyphene AdvReac Hallucinati Verified 01/10/24 17:59 [From Darvocet-N] ons Physical Exam Vitals: Vital Signs Temp Pulse Resp BP Pulse Ox 01/11/24 08:00 87 16 137/85 95 01/11/24 06:25 98.8 F 79 15 133/90 95 01/11/24 03:15 98.7 F 87 16 94 L 01/11/24 02:53 103 H 22 181/98 95 01/11/24 01:26 83 22 129/84 96 01/10/24 23:43 84 14 142/88 97 01/10/24 22:28 90 20 150/92 95 01/10/24 20:31 92 15 146/88 96 01/10/24 20:01 97.7 F 83 15 180/108 96 01/10/24 19:44 93 18 184/127 96 01/10/24 18:45 112 H 17 174/102 95 01/10/24 18:30 98.1 F 87 18 172/106 97 01/10/24 18:10 93 16 172/112 97 01/10/24 17:38 224/130 01/10/24 16:50 97.6 F 16 229/142 98 Intake and Output 01/10/24 01/11/24 01/11/24 22:59 06:59 14:59 Other: Weight 57.606 kg Results 01/10/24 17:35 01/10/24 17:35 Cardiac Enzymes 01/10/24 01/10/24 Range/Units 17:35 17:35 AST 38 H (14-36) U/L Troponin I <0.012 (0.000-0.034) ng/mL Coagulation 01/10/24 Range/Units 17:35 PT 11.2 (10.0-12.5) sec APTT 27.5 (22.0-30.0) sec CBC 01/10/24 Range/Units 17:35 WBC 7.2 (3.8-10.6) k/uL RBC 4.69 (3.80-5.40) m/uL Hgb 14.3 (11.4-16.0) gm/dL Hct 44.1 (34.0-46.0) % Plt Count 161 (150-450) k/uL Comprehensive Metabolic Panel 01/10/24 Range/Units 17:35 Sodium 134 L (137-145) mmol/L Potassium 3.9 (3.5-5.1) mmol/L Chloride 105 (98-107) mmol/L Carbon Dioxide 21 L (22-30) mmol/L BUN 20 H (7-17) mg/dL Creatinine 0.75 (0.52-1.04) mg/dL Glucose 168 H (74-99) mg/dL Calcium 9.4 (8.4-10.2) mg/dL AST 38 H (14-36) U/L ALT 14 (4-34) U/L Alkaline Phosphatase 81 (38-126) U/L Total Protein 7.2 (6.3-8.2) g/dL Albumin 4.2 (3.5-5.0) g/dL Current Medications Generic Name Dose Route Start Last Admin Trade Name Freq PRN Reason Stop Dose Admin Aspirin 325 mg 01/11/24 09:00 01/11/24 08:23 Aspirin 325 Mg Tab PO 325 mg DAILY MADHU Administration Heparin Sodium (Porcine) 5,000 unit 01/11/24 08:00 01/11/24 08:24 Heparin Sodium,Porcine 5,000 Unit/Ml 1 Ml Vial SQ 5,000 unit Q8HR MADHU Administration Sodium Chloride 1,000 mls @ 75 mls/hr 01/10/24 20:56 01/10/24 21:52 Saline 0.9% IV 01/11/24 10:15 75 mls/hr .[id number] Administration Methimazole 5 mg 01/11/24 09:00 01/11/24 08:23 Methimazole 5 Mg Tab PO 5 mg DAILY MADHU Administration Metoprolol Tartrate 100 mg 01/11/24 09:00 01/11/24 08:23 Metoprolol Tartrate 50 Mg Tab PO 100 mg BID MADHU Administration Ondansetron HCl 4 mg 01/11/24 08:41 01/11/24 08:49 Ondansetron 4 Mg/2 Ml Vial IVP 4 mg Q6HR PRN Administration Nausea And Vomiting Intake and Output 01/10/24 01/11/24 01/11/24 22:59 06:59 14:59 Other: Weight 57.606 kg 01/10/24 17:35 01/10/24 17:35
[2024-01-11] MEDS: hydroCHLOROthiazide 12.5 MG CAP PO SCH (11:57)
[2024-01-11] MEDS: LOSARTAN 50 MG TAB PO SCH (11:57)
[2024-01-11] MEDS: ALPRAZolam 0.5 MG TAB PO STA (13:56)
[2024-01-11] MEDS: HYDROcodone/APAP 5-325MG 1 EACH TAB PO PRN (13:56)
--- NOTE | 2024-01-11 15:55 | P.PN ---
Subjective Progress Note Date: 01/11/24 Hospital Course: 73-year-old female with hypertension, Graves' disease, persistent atrial fibri llation not on anticoagulation presenting with confusion and strokelike symptoms. Upon presentation to the ED she was found to have high blood pressure systolic 240/140 patient had a stroke workup in the ED CT scan of the brain showed no acute intracranial pathology however showed questionable fusiform left posterior basilar artery with recommendations to perform CTA of the head and neck, she was given hydralazine IV push in the ED which lowered her blood pressure to systolic of 180. EKG showed A-fib. chest x-ray was showing mild cardiomegaly without any acute cardiopulmonary process. Patient then developed left-sided facial droop as well as left upper and lower extremity weakness. Neurology also consulted. MRI brain pending. CTA head and neck also showed a small rounded focal outpouching of contrast seen along the left wall of aortic arch extending into soft plaque suggesting a penetrating ulcer, no dissection flap is seen. Cardiology and vascular surgery also consulted. Subjective: Patient seen and examined at bedside. No acute events overnight. Less confused this morning. Pertinent positives and negatives as discussed above, a complete review of systems was performed and all other systems are negative. Vitals Signs Reviewed. General: Nontoxic, no distress, appears at stated age Derm: Warm, dry Head: Atraumatic, normocephalic, symmetric Eyes: EOMI, no lid lag, anicteric sclera Mouth: No lip lesion, mucus membranes moist Cardiovascular: S1S2 reg, no murmur Lungs: CTA bilateral, no rhonchi, no rales, no accessory muscle use Abdominal: Soft, nontender to palpation, no guarding, no appreciable organomegaly Ext: No gross muscle atrophy, no edema, no contractures Neuro: Left-sided facial droop, strength 4/5 on left upper and lower extremity. Psych: Alert, oriented, appropriate affect Data Reviewed Today: Pertinent Labs: No new labs Imaging: MRI brain completed, pending report Assessment and Plan: Active: Acute encephalopathy, resolved Acute CVA, with left-sided deficits Hypertensive emergency Persistent atrial fibrillation - Discussed management with neurology, brain MRI pending, echocardiogram pending. Continue aspirin 81 mg daily, atorvastatin 40 daily - Blood pressure now better controlled, on hydrochlorothiazide 12.5 daily, losartan 100 mg daily, would avoid precipitous drop in blood pressure given strokelike symptoms. Also on metoprolol 100 twice daily - Patient had vaginal bleeding in the past with anticoagulation. 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 Chronic: Rheumatoid arthritis - on Carr as needed for pain, monitor for sedation Graves' disease DVT ppx: Subcu heparin Code status: Full code Anticipated discharge place: Pending clinical course Anticipated discharge time: Pending clinical course Objective - Vital Signs Vital signs: Vital Signs Temp 98.8 F 01/11/24 06:25 Pulse 82 01/11/24 15:51 Resp 18 01/11/24 15:51 BP 183/88 01/11/24 15:51 Pulse Ox 94 L 01/11/24 15:51 FiO2 Intake & Output 01/10/24 01/11/24 01/11/24 18:59 06:59 18:59 Weight 57.606 kg - Labs CBC & Chem 7: 01/10/24 17:35 01/10/24 17:35 Labs: Abnormal Lab Results - Last 24 Hours (Table) 01/10/24 01/10/24 01/10/24 Range/Units 17:35 17:35 18:25 Lymphocytes # 0.7 L (1.0-4.8) k/uL Sodium 134 L (137-145) mmol/L Carbon Dioxide 21 L (22-30) mmol/L BUN 20 H (7-17) mg/dL Glucose 168 H (74-99) mg/dL AST 38 H (14-36) U/L Urine Protein 1+ H (Negative) Ur Leukocyte Esterase Small H (Negative)
--- NOTE | 2024-01-11 16:46 | P.CNNES ---
History of Present Illness Consult date: 01/11/24 Requesting physician: Luis Lewis Reason for Consult: altered mental status History of Present Illness: this is a 73-year-old woman who presents because of confusion. History was obtained from family members were bedside (son and daughter). Seems yesterday she was not acting herself per the family members and was agitated. When she presented to our facility her blood pressure was severely elevated as high as 22 9/142. she also had nausea and vomiting.she denies of any headache her blood pressure was dropped down and was given IV hydralazine. Seems later on in our facility while in the ED she had left facial droop. per family members as she has history of Graves' disease as well as has history of A. fib and not on any anticoagulation since she has the history of vaginal bleed according to patient. In the past she was on Ahlquist in divided vaginal bleed. She is on low-dose aspirin 81 mg daily. She has history of underlying hypertension and had episode of one time that was severely elevated. Otherwise her blood pressure is controlled. She has cataract on the left eye and the disconjugate gaze predominant on the right eye and she needs a muscle correction surgery on the right.patient denies any headache or TIA in the past. Denies any history of seizure. she has history of rheumatoid arthritis and osteoarthritis. Per the ED team the patient is outside the window for IV thrombolytic and risk outweigh benefit. Some of the workup during his hospital visit consisted of: CBC with differential is unremarkable TSH is 2.75 and free T4 is 1.27 CT of the head is reported as chronic mild periventricular white matter ischemic changes. Acute process is not otherwise evident. fusiform prominence of basilar artery and possibly left posterior communicating artery. I personally reviewed the CT and there is no acute subacute ischemia. CTA head and neck is reported as Mild dolichoectasia of intracranial right vertebral artery, with lesser involvement suggested of the bsilar artery and proximal PELLET PREPARATION OPERATOR's. No intracranial larger vessel occlusion, signficiant stenosis or sizable aneurysme detected in the limits of CTA. UDS is unremarkable. Review of Systems The positive and negative as per HPI. Past Medical History Past Medical History: Atrial Fibrillation, Fibromyalgia, Hypertension, Osteoarthritis (OA), Rheumatoid Arthritis (RA), Thyroid Disorder Additional Past Medical History / Comment(s): Arthritis History of Any Multi-Drug Resistant Organisms: None Reported Past Surgical History: Hysterectomy, Orthopedic Surgery Past Psychological History: No Psychological Hx Reported Smoking Status: Never smoker Past Alcohol Use History: None Reported Past Drug Use History: None Reported - Past Family History Mother Family Medical History: Hypertension Medications and Allergies Home Medications Medication Instructions Recorded Confirmed Type Aspirin EC [Ecotrin Low Dose] 81 mg PO DAILY 01/10/24 01/10/24 History Back And Body (Sivakumar) Caffeine 2 tab PO Q6H PRN 01/10/24 01/10/24 History 32.5 Mg + Aspirin 500mg Losartan Potassium [Cozaar] 100 mg PO DAILY 01/10/24 01/10/24 History Metoprolol Tartrate [Lopressor] 100 mg PO BID 01/10/24 01/10/24 History diphenhydrAMINE [Benadryl] 25 mg PO Q6H PRN 01/10/24 01/10/24 History hydroCHLOROthiazide [Hydrodiuril] 12.5 mg PO DAILY 01/10/24 01/10/24 History methIMAzole [Tapazole] 5 mg PO DAILY 01/10/24 01/10/24 History Allergies Allergy/AdvReac Type Severity Reaction Status Date / Time ciprofloxacin [From Cipro] Allergy Rash/Hives Verified 01/10/24 17:59 acetaminophen AdvReac Hallucinati Verified 01/10/24 17:59 [From Darvocet-N] ons propoxyphene AdvReac Hallucinati Verified 01/10/24 17:59 [From Darvocet-N] ons Physical Examination - Vital Signs Vital Signs: Vital Signs Temp Pulse Pulse Resp BP BP Pulse Ox 01/11/24 15:51 82 18 183/88 94 L 01/11/24 14:00 82 01/11/24 12:00 98 16 182/114 98 01/11/24 11:57 84 16 182/114 96 01/11/24 08:00 87 16 137/85 95 01/11/24 06:25 98.8 F 79 15 133/90 95 01/11/24 03:15 98.7 F 87 16 94 L 01/11/24 02:53 103 H 22 181/98 95 01/11/24 01:26 83 22 129/84 96 01/10/24 23:43 84 14 142/88 97 01/10/24 22:28 90 20 150/92 95 01/10/24 20:31 92 15 146/88 96 01/10/24 20:01 97.7 F 83 15 180/108 96 01/10/24 19:44 93 18 184/127 96 01/10/24 18:45 112 H 17 174/102 95 01/10/24 18:30 98.1 F 87 18 172/106 97 01/10/24 18:10 93 16 172/112 97 01/10/24 17:38 224/130 01/10/24 16:50 97.6 F 16 229/142 98 General: Lying in bed and does not appear in acute distress. Has bucket next to her since is nauseous. Extremities: Has severe extremities changes from her Arthritis (mostly distal in feet and in hands). Neuro: Somewhat limited because of her condition. the patient is awake alert oriented to self place and time. She is following simple commands but somewhat slow. No aphasia from limited language The pupils are round equal reactive to light. Pupils are round 3-4 mm. Primary gaze over the right eye is up and out which is baseline. Otherwise extraocular movement is intact no nystagmus. Visual herrera are full to confrontation. Has left lower facial droop. Positive mild dysarthria. Is hypophonia. Motor: Strength is left upper proximally is 4+. Otherwise uppers are 5/5. Lowers is lifting above gravity equally. Sensation: Is normal to touch throughout. Plantars: Mute bilaterally. Results - Laboratory Findings CBC and BMP: 01/10/24 17:35 01/10/24 17:35 Abnormal Lab Findings: Abnormal Labs 01/10/24 01/10/24 01/10/24 17:35 17:35 18:25 Lymphocytes # 0.7 L Sodium 134 L Carbon Dioxide 21 L BUN 20 H Glucose 168 H AST 38 H Urine Protein 1+ H Ur Leukocyte Esterase Small H Assessment and Plan Assessment: this is a 73-year-old woman with history of A. fib who is on aspirin and not anticoagulation due to history of bleed who presents because of confusion and on presentation her blood pressure was 220s over 140s.seems that she also developed a left lower facial weakness yesterday. On examination she has a in addition to the facial weakness has a mild dysarthria and the left upper extremity weakness. Acute left facial droop with left upper extremity weakness and dysarthria due to acute ischemic stroke. No IV thrombolytic due to outside the window per ED and risk outweigh benefit. Etiology of stroke likely cardioembolic due to hx of A- fib and not on anticoagulant Hypertensive encephalopathy---improved. Hypertensive emergency history of Graves' disease history of disconjugate gaze predominantly over the right eye with history of left eye cataract History of A. fib not on any anticoagulation due to history of vaginal bleeding History of rheumatoid arthritis History of osteoarthritis underlying history of hypertension Plan: I ordered MRI of the brain, 2-D echo Lipid panels ordered and is pending Patient is on aspirin 81 mg and per family members she was easily. Family members and patient is in agreement of starting Plavix 75mg daily in addition to ASA because of acute stroke. we'll avoid anticoagulation at this time and will obtain MRI. We'll defer the use of anticoagulation or further management of the A. fib to the cardiology team and primary team special with a history of bleed. Patient was reluctant on starting statin initially but she was in agreement of being on Lipitor 20 mg daily at bedtime if she develops any the myalgia then we'll discontinue the medication.Statin was started for secondary stroke prophylaxis Continue neuro checks Cardiac monitoring PT, OT and SHUT OFF WORKER are consulted Please avoid aggressive management of HTN. cardiothoracic is consulted for incidental finding on CT angiography of nonpenetrating aortic wall ulcer. Cardiology is consulted We'll defer the rest of the medical management to primary and other specialist. For DVT prophyalxis. is on subq heparin. The plan is discussed with patient, her family members (son and daughter) and primary team. Thank you for the consultation. Time with Patient: Greater than 30
[2024-01-11] MEDS: CLOPIDOGREL 75 MG TAB PO SCH (17:14)
[2024-01-11] MEDS ORDERED: ATORVASTATIN 40 MG TAB PO SCH (21:00)
--- NOTE | 2024-01-11 21:34 | MR ---
EXAMINATION TYPE: MR brain wo con DATE OF EXAM: 01/11/2024 3:56 PM CLINICAL INDICATION:Female, 73 years old with history of stroke, left facial droop. COMPARISON: CT angiogram head and neck 01/10/2024. CT brain without contrast 01/10/2024 and 11/24/2022. TECHNIQUE: Multiplanar, multisequential MR imaging of the brain was performed without IV contrast. FINDINGS: Multiple foci of diffusion restriction seen throughout the right cerebral hemisphere. This includes a 16 x 9 mm focus along the lateral aspect of the right lateral ventricle anterior horn, involving the caudate head. Multiple serpentine areas of cortical diffusion restriction in the right parietal lobe and extending inferiorly and anteriorly along the temporal lobe lobe, plus a somewhat larger more fo gilles patch of restriction at the anterolateral aspect of the temporal lobe. A couple of tiny foci of c ortically based diffusion restriction also suggested in the right frontal lobe. There is a 7 mm focus in the deep white matter of the right posterior frontal lobe, as well as a tiny focus just inferior and lateral to this. No definite effusion restriction is seen in the left cerebral hemisphere, brains tem, or cerebellum. Background moderate generalized brain atrophy. Abnormal susceptibility signal suggests several scatte red previous microhemorrhages throughout the brain, most prominent an ovoid focus in the centrum semi ovale on the left. Small foci are also present in the right isabel and a couple in the cerebellum bilat erally. Patchy and confluent T2/FLAIR signal hyperintensities throughout the bilateral cerebral white matter, and some in the brainstem, nonspecific but most likely due to chronic microvascular ischemic white m atter changes. Small remote lacunar infarcts in the right side of the isabel and bilateral cerebellar h emispheres. No extra-axial fluid collection, midline shift, or mass effect. The ventricles are mildly prominent, likely sequela of brain volume loss. Basilar cisterns are patent . The major vascular flow voids at the sun[place]aq of [place] are preserved. Globes and orbits appear symmetric and unremarkable. Extracranial soft tissues are unremarkable. No abnormal paranasal sinus signal is seen. No focal calvarial signal abnormality. IMPRESSION: 1. Multiple relatively small areas of restricted diffusion in the right cerebral hemisphere, consiste nt with acute/subacute infarcts. 2. No significant mass effect. No midline shift or brain herniation. 3. Background moderate generalized brain atrophy and chronic microvascular ischemic changes. Scattere d remote microhemorrhages.
[2024-01-12] MEDS: ATORVASTATIN 20 MG TAB PO SCH (00:43)
[2024-01-12] MEDS: cloNIDine HCL 0.2 MG TAB PO STA (01:01)
[2024-01-12] MEDS: ASPIRIN 81 MG PO SCH (08:33)
[2024-01-12] MEDS: amLODIPine 5 MG TAB PO SCH (11:36)
--- NOTE | 2024-01-12 14:48 | P.PN ---
Subjective Progress Note Date: 01/12/24 I am following-up with patient and per son she is somewhat better today compared to yesterday. He feels the left arm strength is better today. Objective - Vital Signs Vital signs: Vital Signs Temp 98.3 F 01/12/24 08:00 Pulse 68 01/12/24 12:49 Resp 16 01/12/24 12:49 BP 181/100 01/12/24 12:49 Pulse Ox 97 01/12/24 12:49 FiO2 Intake & Output 01/11/24 01/12/24 01/12/24 18:59 06:59 18:59 Intake Total 222 Output Total 400 150 Balance -400 72 Weight 57.606 kg Intake: Oral 222 Output: Urine 400 150 Other: Voiding Method Toilet Bedside Commode Bedside Commode # Voids 1 - Exam General: Lying in bed and does not appear in acute distress. Extremities: Has severe extremities changes from her Arthritis (mostly distal in feet > hands). Neuro: the patient is awake alert oriented to self place and time. She is following simple commands and today is more responsive compared to yesterday. No aphasia. The pupils are round equal reactive to light. Pupils are round 3-4 mm. Primary gaze over the right eye is up and out which is baseline. Otherwise extraocular movement is intact no nystagmus. Visual herrera are full to confrontation. Has left lower facial droop. Positive minimal dysarthria. Is hypophonia. Motor: Strength is left upper proximally is 4+. Otherwise uppers are 5/5. Lowers is lifting above gravity equally. Sensation: Is normal to touch throughout. Plantars: Mute bilaterally. Some of the workup during his hospital visit consisted of: CBC with differential is unremarkable TSH is 2.75 and free T4 is 1.27 CT of the head is reported as chronic mild periventricular white matter ischemic changes. Acute process is not otherwise evident. fusiform prominence of basilar artery and possibly left posterior communicating artery. I personally reviewed the CT and there is no acute subacute ischemia. CTA head and neck is reported as Mild dolichoectasia of intracranial right vertebral artery, with lesser involvement suggested of the bsilar artery and proximal MOLD CLOSER's. No intracranial larger vessel occlusion, signficiant stenosis or sizable aneurysme detected in the limits of CTA. UDS is unremarkable. MRI Brain is reported as multiple relatively small of resticted diffused in the right cerebral hemipshere, consistent with acute/subacute infarcts. No significant mass effect. No midline shift or brain herniation. Background moderate generalized brain atrophy and chronic microvascular ischemic changes. Scatter remote mirohemorrhages. I personally reviewed MRI and agree there is ac aravind stroke over the right hemisphere - Labs CBC & Chem 7: 01/10/24 17:35 01/10/24 17:35 Assessment and Plan Assessment: this is a 73-year-old woman with history of A. fib who is on aspirin and not anticoagulation due to history of bleed who presents because of confusion and on presentation her blood pressure was 220s over 140s.seems that she also developed a left lower facial weakness yesterday. On examination she has a in addition to the facial weakness has a mild dysarthria and the left upper extremity weakness. Acute to subacute ischemic stroke over the right hemisphere (multiple scattered that small in size). Appears embolic and likely cardioemboli (hx of A-fib and not on anticoagulation). Presents with left facial droop with left upper extremity weakness and dysarthria. No IV thrombolytic due to outside the window. Hypertensive encephalopathy---improved. Hypertensive emergency history of Graves' disease history of disconjugate gaze predominantly over the right eye with history of left eye cataract History of A. fib not on any anticoagulation due to history of vaginal bleeding History of rheumatoid arthritis History of osteoarthritis underlying history of hypertension Plan: Pending 2-D echo and lipid panel Patient is on aspirin 81 mg and per family members she was easily. Family members and patient is in agreement of starting Plavix 75mg daily in addition to ASA because of acute stroke. we'll avoid anticoagulation at this time since has acute stoke to avoid hemorrhagic conversion. Patient is reluctant on starting anticoagulation because of her history of prior bleed. But she will have discussion with her family about wether she would like to be on anticoagulation. If she agrees on anticoagulant then recommend starting on 01/14/2024 to avoid risk of hemorrhagic conversion. Once anticoagulation is started can stop Plavix. Patient was reluctant on starting statin initially but she was in agreement of being on Lipitor 20 mg daily at bedtime if she develops any the myalgia then we'll discontinue the medication.Statin was started for secondary stroke prophylaxis Continue neuro checks Cardiac monitoring PT, OT and EIGHT ARM OPERATOR are consulted. I consulted inpatient rehab. cardiothoracic is consulted for incidental finding on CT angiography of nonpen etrating aortic wall ulcer. Cardiology is consulted We'll defer the rest of the medical management to primary and other specialist. For DVT prophyalxis. is on subq heparin. Upon discharge, patient needs to follow-up with neurologist as outpatient within 1-2 weeks. The plan is discussed with patient, her son who is at bedside and primary team. Time with Patient: Less than 30
--- NOTE | 2024-01-12 14:56 | P.PN ---
Subjective Progress Note Date: 01/12/24 Hospital Course: 73-year-old female with hypertension, Graves' disease, persistent atrial fibri llation not on anticoagulation presenting with confusion and strokelike symptoms. Upon presentation to the ED she was found to have high blood pressure systolic 240/140 patient had a stroke workup in the ED CT scan of the brain showed no acute intracranial pathology however showed questionable fusiform left posterior basilar artery with recommendations to perform CTA of the head and neck, she was given hydralazine IV push in the ED which lowered her blood pressure to systolic of 180. EKG showed A-fib. chest x-ray was showing mild cardiomegaly without any acute cardiopulmonary process. Patient then developed left-sided facial droop as well as left upper and lower extremity weakness. Neurology also consulted. MRI brain pending. CTA head and neck also showed a small rounded focal outpouching of contrast seen along the left wall of aortic arch extending into soft plaque suggesting a penetrating ulcer, no dissection flap is seen. Cardiology and vascular surgery also consulted. MRI brain shows multiple relatively small areas of restricted diffusion in the right cerebral hemisphere consistent with acute/subacute infarcts. Scattered remote microhemorrhages. Subjective: Patient seen and examined at bedside. No acute events overnight. Pertinent positives and negatives as discussed above, a complete review of systems was performed and all other systems are negative. Vitals Signs Reviewed. General: Nontoxic, no distress, appears at stated age Derm: Warm, dry Head: Atraumatic, normocephalic, symmetric Eyes: EOMI, no lid lag, anicteric sclera Mouth: No lip lesion, mucus membranes moist Cardiovascular: S1S2 reg, no murmur Lungs: CTA bilateral, no rhonchi, no rales, no accessory muscle use Abdominal: Soft, nontender to palpation, no guarding, no appreciable organomeg dilip Ext: No gross muscle atrophy, no edema, no contractures Neuro: Left-sided facial droop, strength 4/5 on left upper and lower extremity. Psych: Alert, oriented, appropriate affect Data Reviewed Today: Pertinent Labs: No new labs Imaging: MRI brain shows multiple relatively small areas of restricted diffusion in the right cerebral hemisphere consistent with acute/subacute infarcts. Scattered remote microhemorrhages. Assessment and Plan: Active: Acute encephalopathy, resolved Acute CVA, with left-sided deficits Hypertensive emergency Persistent atrial fibrillation - Discussed management with neurology, echocardiogram pending, patient on aspirin 81, Plavix 75, atorvastatin 20, she will be started on Xarelto over the weekend. 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 Chronic: Rheumatoid arthritis - on Elliott as needed for pain, monitor for sedation Graves' disease DVT ppx: Subcu heparin Code status: Full code Anticipated discharge place: Pending clinical course Anticipated discharge time: Pending clinical course Objective - Vital Signs Vital signs: Vital Signs Temp 98.3 F 01/12/24 08:00 Pulse 68 01/12/24 12:49 Resp 16 01/12/24 12:49 BP 181/100 01/12/24 12:49 Pulse Ox 97 01/12/24 12:49 FiO2 Intake & Output 01/11/24 01/12/24 01/12/24 18:59 06:59 18:59 Intake Total 222 Output Total 400 150 Balance -400 72 Weight 57.606 kg Intake: Oral 222 Output: Urine 400 150 Other: Voiding Method Toilet Bedside Commode Bedside Commode # Voids 1 - Labs CBC & Chem 7: 01/10/24 17:35 01/10/24 17:35
--- NOTE | 2024-01-12 17:03 | P.PN ---
Subjective History of present illness: This is a 73-year-old female with past medical history of persistent atrial fibrillation, Graves' disease, hypertension. We have been asked to evaluate the patient for hypertensive emergency. Patient presented to the hospital with a blood pressure of 229/142. She is status post hydralazine 20 mg IV push followed by 10 mg IV push. Home medications have not been resumed and blood pressure is currently 137/85. Family state that patient was not acting right at home and had left sided weakness that is improved today. Patient denies feeling abnormal and denies weakness. Patient was on Eliquis in the past but stopped due to significant bruising. She was last seen in the office with Dr. Ceballos in 2019. Blood pressu re readings are fluctuating. Dr. Mccann discussed in detail with the patient and son the need for anticoagulation to prevent further TIA/CVA and discussed option of watchman procedure in the future. Patient is also seeing a retinal specialist and has had retinal bleedng with treatments which is a concern voiced by patient's son but should not interfere with anticoagulation. EKG atrial fibrillation at 82 bpm Chest x-ray: No acute process. Mild cardiomegaly. CT of the brain fusiform prominence of the basilar artery and possible left posterior communicating artery. Chronic mild periventricular white matter ischemic changes. CT angiogram of the head and neck reveals no evidence of stenosis, dissection, pseudoaneurysm in the bilateral cervical carotid or vertebral arteries. Soft plaque of the aorta with mild involve the proximal left vertebral artery resulting in mild narrowing. Small rounded focal outpouching of contrast in the left wall of the aortic arch extending into soft plaque suggesting a penetrating ulcer.. 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 No intracranial large vessel occlusion, stenosis, sizable aneurysm detected. CBC, INR unremarkable. Sodium 134, potassium 3.9, BUN 20 creatinine 0.75. Glucose 168. AST 38, troponin negative x 1. TSH 2.75. Drug screen negative. Urinalysis negative for infection. Home cardiac medications: Aspirin 81 mg daily, hydrochlorothiazide 12.5 mg daily, losartan 100 mg daily, Lopressor 100 mg twice daily. 01/07 patient had MRI consistent with right sided stroke. We therefore discussed anticoagulation and patient has been hesitant secondary to vaginal bleeding in the past. She previously been on Alquist however is open to taking Xarelto. Denies any chest pain or pressure. She is having a headache as well as nauseous. Her blood pressure previously in the 130s however now up in the 180s to 200s. May be exacerbated by her pain and headache. Physical examination: Gen: This is a 73-year-old female in no acute distress VS: reviewed blood pressure 137/85-182/114, heart rate 87, pulse ox 95% on room air. HEENT: Head is atraumatic, normocephalic. Pupils equal, round. Sclerae is anicteric. NECK: Supple. No JVD. LUNGS: Clear to auscultation. No wheezes or rhonchi. No intercostal retractions. HEART: Regular rate and rhythm. No murmur. ABDOMEN: Soft No tenderness. EXTREMITIES: No pedal edema. No calf tenderness. NEUROLOGICAL: Patient is awake, alert. Assessment: Possible CVA/TIA Hypertensive emergency Possible aortic arch ulcer, patient seen by CTS Persistent atrial fibrillation Graves' disease History of hypertension Plan: increase amlodipine from 5-10 and also add hydralazine. Gradual decrease in blood pressure recommended, 25% in the next 24 hours. Given history of atrial fibrillation discussed anticoagulation and patient is agreeable. Per neurology start anticoagulation on 01/13 and we will start Xarelto. Continue to monitor blood pressure closely. Objective - Vital Signs Vital signs: Vital Signs Temp 98.3 F 01/12/24 08:00 Pulse 84 01/12/24 15:30 Resp 16 01/12/24 15:30 BP 201/101 01/12/24 15:30 Pulse Ox 95 01/12/24 15:30 FiO2 Intake & Output 01/11/24 01/12/24 01/12/24 18:59 06:59 18:59 Intake Total 222 Output Total 400 150 Balance -400 72 Weight 57.606 kg Intake: Oral 222 Output: Urine 400 150 Other: Voiding Method Toilet Bedside Commode Bedside Commode # Voids 1 2 - Labs CBC & Chem 7: 01/10/24 17:35 01/10/24 17:35
[2024-01-12] MEDS: amLODIPine 5 MG TAB PO STA (17:05)
[2024-01-12] MEDS: hydrALAZINE HCL 25 MG TAB PO SCH (17:05)
--- NOTE | 2024-01-12 17:09 | CA ---
Transthoracic Echo Report Name: Kaitlynn Renee Age: 73 Gender: F : 1950 Exam Date: 01/11/2024 13:55 Exam Location: [facility] Ht (in): 61 Wt (lb): 127 Ordering Physician: José Luis Mott MD Attending/Referring Phys: Binding Stitcher Agnes Gonsalez RDCS Procedure CPT: Indications: stroke Cardiac Hx: A-FIB Technical Quality: Fair Contrast 1: Total Dose (mL): Contrast 2: Total Dose (mL): MEASUREMENTS (Male / Female) Normal Values 2D ECHO LV Diastolic Diameter PLAX 5.1 cm 4.2 - 5.9 / 3.9 - 5.3 cm LV Systolic Diameter PLAX 2.5 cm IVS Diastolic Thickness 1.2 cm 0.6 - 1.0 / 0.6 - 0.9 cm LVPW Diastolic Thickness 1.3 cm 0.6 - 1.0 / 0.6 - 0.9 cm LV Relative Wall Thickness 0.5 RV Internal Dim ED PLAX 1.7 cm Aortic Root Diameter 3.2 cm LA Systolic Diameter LX 5.0 cm 3.0 - 4.0 / 2.7 - 3.8 cm LV Diastolic Volume MOD BP 45.7 cm??? 67 - 155 / 56 - 104 cm??? LV Systolic Volume MOD BP 16.9 cm??? 22 - 58 / 19 - 49 cm??? LV Ejection Fraction MOD BP 62.9 % >= 55 % LV Cardiac Index MOD BP 1485.1 cm???/min???m??? LV Diastolic Volume MOD 4C 62.0 cm??? LV Systolic Volume MOD 4C 21.0 cm??? LV Ejection Fraction MOD 4C 66.1 % LV Cardiac Index MOD 4C 2119.4 cm???/min???m??? LV Diastolic Length 4C 6.1 cm LV Systolic Length 4C 5.1 cm LV Diastolic Volume MOD 2C 31.1 cm??? LV Systolic Volume MOD 2C 12.5 cm??? LV Ejection Fraction MOD 2C 59.9 % LV Cardiac Index MOD 2C 963.5 cm???/min???m??? LV Diastolic Length 2C 5.6 cm LV Systolic Length 2C 4.5 cm M-MODE Aortic Root Diameter MM 3.0 cm LA Systolic Diameter MM 4.1 cm LA Ao Ratio MM 1.4 DOPPLER AV Peak Velocity 139.8 cm/s AV Peak Gradient 7.8 mmHg MR Peak Velocity 535.4 cm/s MR Peak Gradient 114.7 mmHg TR Peak Velocity 310.2 cm/s TR Peak Gradient 45.4 mmHg Right Ventricular Systolic Press 50.4 mmHg PV Peak Velocity 91.3 cm/s PV Peak Gradient 3.3 mmHg FINDINGS Left Ventricle Left ventricular ejection fraction is estimated at 55-60 %. Mildly increased septal wall thickness. Mildly increased posterior wall thickness. Normal left ventricular systolic function with no obvious regional wall motion abnormalities. Left ventricular cavity size normal. Right Ventricle Mild right ventricular dilatation. Moderate pulmonary hypertension. Right Atrium Severe right atrial dilatation. Left Atrium Severely increased left atrial diameter. Mitral Valve Structurally normal mitral valve. [id number]-[id number] mitral regurgitation. Mitral annular calcification.no mitral stenosis. Aortic Valve Trileaflet aortic valve. Trace to mild aortic regurgitation. No aortic stenosis. Tricuspid Valve Structurally normal tricuspid valve. Fhhykjua-no-yqeges tricuspid regurgitation. Pulmonic Valve Structurally normal pulmonic valve. No pulmonic stenosis. Trace pulmonic regurgitation. Pericardium No pericardial or pleural effusion. Aorta Normal size aortic root and proximal ascending aorta. CONCLUSIONS Preserved LV systolic function Severe biatrial enlargement 3+ tricuspid regurgitation and [id number] mitral regurgitation Previewed by: Dr. Primo Ceballos MD (Electronically Signed) Final Date: 12 January 2024 17:08
[2024-01-12 17:29] LABS: Chol/HDL Ratio 2.52 Ratio; VLDL Calculation 16.48 mg/dL (5.00-40.00)
[2024-01-13] MEDS: amLODIPine 10 MG TAB PO SCH (08:57)
[2024-01-13 10:13] LABS: Basophils % (A) 0 %; Eosinophils # (A) 0.1 k/uL (0-0.7); Eosinophils % (A) 1 %; HCT 44.5 % (34.0-46.0); HGB 14.5 gm/dL (11.4-16.0); Lymphocytes # (A) 0.7 k/uL (1.0-4.8); Lymphocytes % (A) 6 %; MCHC 32.7 g/dL (31.0-37.0); MCV 91.8 fL (80.0-100.0); Mean Platelet Volume 8.3; Monocytes # (A) 0.9 k/uL (0-1.0); Monocytes % (A) 8 %; Neutrophils # (A) 9.9 k/uL (1.3-7.7); Neutrophils % (A) 84 %; Platelet Count 217 k/uL (150-450); RBC 4.84 m/uL (3.80-5.40); WBC 11.8 k/uL (3.8-10.6)
[2024-01-13 10:18] LABS: African American GFR (CKD) >90 (>60 ml/min/1.73 sqM); Anion Gap 13 mmol/L; Blood Urea Nitrogen 11 mg/dL (7-17); Calcium 9.4 mg/dL (8.4-10.2); Carbon Dioxide 22 mmol/L (22-30); Chloride 83 mmol/L (98-107); Glucose 138 mg/dL (74-99); Magnesium 1.3 mg/dL (1.6-2.3); Non-African American GFR(CKD) >90 (>60 ml/min/1.73 sqM)
[2024-01-13 10:36] LABS: Sodium 118 mmol/L (137-145)
[2024-01-13 11:20] LABS: African American GFR (CKD) >90 (>60 ml/min/1.73 sqM); Anion Gap 10 mmol/L; Blood Urea Nitrogen 11 mg/dL (7-17); Calcium 9.1 mg/dL (8.4-10.2); Carbon Dioxide 25 mmol/L (22-30); Chloride 83 mmol/L (98-107); Glucose 126 mg/dL (74-99); Magnesium 1.4 mg/dL (1.6-2.3); Non-African American GFR(CKD) >90 (>60 ml/min/1.73 sqM)
[2024-01-13 11:21] LABS: Sodium 118 mmol/L (137-145)
[2024-01-13] MEDS ORDERED: hydrALAZINE HCL 20 MG/ML 1 ML VIAL IVP PRN (11:36)
--- NOTE | 2024-01-13 11:51 | P.NPCON ---
History of Present Illness - Reason for Consult hyponatremia - History of Present Illness Reason for consultation: Hyponatremia History of present illness: Patient is a 73-year-old female seen in renal consultation for hyponatremia. Patient sodium level on January 10, 2024 at 5:35 PM was 134. This morning it was down to 118 and on repeat it was still 118. Patient is currently not on any IV fluids. Patient was receiving hydrochlorothiazide and last dose was given this morning. Patient came to the hospital due to altered mental status. Patient is currently quite lethargic and not a very reliable historian. Patient did have a headache prior to admission. It is noted in the chart that patient was quite confused as noted by her grandson who subsequently brought her to the hospital. Patient denies any vomiting or diarrhea now but states he did have vomiting earlier this week. She denies gross hematuria or dysuria. She denies personal history of malignancy. Patient has history of Graves' disease. TSH was normal at this admission. MRI of the brain did show acute subacute infarcts. Patient also noted to be extremely hypertensive and meds have been adjusted by cardiology. Dose of amlodipine was increased today. She is also on hydralazine, Cozaar as well as metoprolol. Patient's oral intake has been poor. She has been drinking quite a bit of fluids but unable to quantify. Vital signs are stable. Blood pressure on the higher side. General: Resting in bed. Somewhat agitated. HEENT: Head exam is unremarkable. LUNGS: No audible rhonchi or wheezes. HEART: Rate and Rhythm are regular. ABDOMEN: Nontender. EXTREMITITES: No edema. Past Medical History Past Medical History: Atrial Fibrillation, Fibromyalgia, Hypertension, Osteoarthritis (OA), Rheumatoid Arthritis (RA), Thyroid Disorder Additional Past Medical History / Comment(s): Arthritis History of Any Multi-Drug Resistant Organisms: None Reported Past Surgical History: Hysterectomy, Orthopedic Surgery Past Psychological History: No Psychological Hx Reported Smoking Status: Never smoker Past Alcohol Use History: None Reported Past Drug Use History: None Reported - Past Family History Mother Family Medical History: Hypertension Medications and Allergies Home Medications Medication Instructions Recorded Confirmed Type Aspirin EC [Ecotrin Low Dose] 81 mg PO DAILY 01/10/24 01/10/24 History Back And Body (Sivakumar) Caffeine 2 tab PO Q6H PRN 01/10/24 01/10/24 History 32.5 Mg + Aspirin 500mg Losartan Potassium [Cozaar] 100 mg PO DAILY 01/10/24 01/10/24 History Metoprolol Tartrate [Lopressor] 100 mg PO BID 01/10/24 01/10/24 History diphenhydrAMINE [Benadryl] 25 mg PO Q6H PRN 01/10/24 01/10/24 History hydroCHLOROthiazide [Hydrodiuril] 12.5 mg PO DAILY 01/10/24 01/10/24 History methIMAzole [Tapazole] 5 mg PO DAILY 01/10/24 01/10/24 History Allergies Allergy/AdvReac Type Severity Reaction Status Date / Time ciprofloxacin [From Cipro] Allergy Rash/Hives Verified 01/10/24 17:59 acetaminophen AdvReac Hallucinati Verified 01/10/24 17:59 [From Darvocet-N] ons propoxyphene AdvReac Hallucinati Verified 01/10/24 17:59 [From Darvocet-N] ons Physical Exam Vitals: Vital Signs Temp Pulse Resp BP Pulse Ox 01/13/24 08:00 97.3 F L 76 16 171/100 96 01/13/24 03:28 97.6 F 78 18 182/97 94 L 01/12/24 23:53 85 18 198/95 96 01/12/24 21:00 90 18 178/95 98 01/12/24 15:30 84 16 201/101 95 01/12/24 15:13 96 01/12/24 12:49 68 16 181/100 97 Intake and Output 01/12/24 01/13/24 01/13/24 22:59 06:59 14:59 Other: Voiding Method Bedside Commode Bedside Commode Bedside Commode # Voids 2 1 Results - Lab Results Most recent lab results Calcium 9.1 mg/dL (8.4-10.2) 01/13/24 10:51 Magnesium 1.4 mg/dL (1.6-2.3) L 01/13/24 10:51 01/13/24 09:40 01/13/24 10:51 Assessment and Plan Plan: Assessment: 1. Hyponatremia. Etiology is poor solute intake and use of thiazide diuretic. Sodium level was 134 on admission January 10, 2024 and 118 this morning. Rule out urinary retention. TSH normal this admission. 2. Acute/subacute CVA. Neurology following. 3. Hypertensive emergency. 4. Hypokalemia from poor intake, diuretic use and hypomagnesemia. 5. Hypomagnesemia from poor intake and diuretic use. 6. Graves' disease maintained on methimazole. Plan: Discontinue hydrochlorothiazide. Replace potassium and magnesium. Check bladder scan to rule out urinary retention. Start normal saline at 75 cc an hour. Encouraged oral intake. Add 1500 cc fluid restriction. Repeat sodium level in 3 hours. Check serum and urine osmolality and urine sodium level. Add as needed hydralazine. Thank you for the consultation. I will continue to follow the patient with you during her hospital stay.
[2024-01-13] MEDS: SODIUM CHLORIDE 0.9% 1,000 ML IV SCH (12:36)
[2024-01-13] MEDS: MAGNESIUM SULFATE-D5W PMX 1 GM in DEXTROSE/WATER 1 100ML.BAG IVPB SCH (12:36)
[2024-01-13] MEDS: POTASSIUM CHLORIDE 10 MEQ in WATER FOR INJECTION 1 100ML.BAG IVPB SCH (12:36)
--- NOTE | 2024-01-13 13:13 | P.PN ---
Subjective Progress Note Date: 01/13/24 Hospital Course: 73-year-old female with hypertension, Graves' disease, persistent atrial fibri llation not on anticoagulation presenting with confusion and strokelike symptoms. Upon presentation to the ED she was found to have high blood pressure systolic 240/140 patient had a stroke workup in the ED CT scan of the brain showed no acute intracranial pathology however showed questionable fusiform left posterior basilar artery with recommendations to perform CTA of the head and neck, she was given hydralazine IV push in the ED which lowered her blood pressure to systolic of 180. EKG showed A-fib. chest x-ray was showing mild cardiomegaly without any acute cardiopulmonary process. Patient then developed left-sided facial droop as well as left upper and lower extremity weakness. Neurology also consulted. MRI brain pending. CTA head and neck also showed a small rounded focal outpouching of contrast seen along the left wall of aortic arch extending into soft plaque suggesting a penetrating ulcer, no dissection flap is seen. Cardiology and vascular surgery also consulted. MRI brain shows multiple relatively small areas of restricted diffusion in the right cerebral hemisphere consistent with acute/subacute infarcts. Scattered remote microhemorrhages. Likely start anticoagulation tomorrow. Does have decreased oral intake, sodium dropping. Nephrology consulted. Subjective: Patient seen and examined at bedside. No acute events overnight. Does have some nausea, vomiting. Continues to be hypertensive. Pertinent positives and negatives as discussed above, a complete review of systems was performed and all other systems are negative. Vitals Signs Reviewed. General: Nontoxic, no distress, appears at stated age Derm: Warm, dry Head: Atraumatic, normocephalic, symmetric Eyes: EOMI, no lid lag, anicteric sclera Mouth: No lip lesion, mucus membranes moist Cardiovascular: S1S2 reg, no murmur Lungs: CTA bilateral, no rhonchi, no rales, no accessory muscle use Abdominal: Soft, nontender to palpation, no guarding, no appreciable organomegaly Ext: No gross muscle atrophy, no edema, no contractures Neuro: Left-sided facial droop, strength 4/5 on left upper and lower extremity. Psych: Alert, oriented, appropriate affect Data Reviewed Today: Pertinent Labs: WBC 11.8, sodium 118, potassium 3, chloride 83, creatinine 0.56, magnesium 1.3 Imaging: Echocardiogram shows preserved LV systolic function, 3+ tricuspid regurgitation, mild to moderate mitral regurgitation Assessment and Plan: Active: Acute encephalopathy, metabolic Acute CVA, with left-sided deficits Hypertensive emergency Persistent atrial fibrillation Hyponatremia, likely hypovolemic -Neurology following, patient on aspirin 81, Plavix 75, atorvastatin 20, she will be started on Xarelto over the weekend. - Blood pressure still elevated. 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 Chronic: Rheumatoid arthritis - on [place] as needed for pain, monitor for sedation Graves' disease DVT ppx: Subcu heparin Code status: Full code Anticipated discharge place: Pending clinical course Anticipated discharge time: Pending clinical course Objective - Vital Signs Vital signs: Vital Signs Temp 97.3 F L 01/13/24 08:00 Pulse 100 01/13/24 12:00 Resp 16 01/13/24 12:00 BP 165/91 01/13/24 12:00 Pulse Ox 95 01/13/24 12:00 FiO2 Intake & Output 01/12/24 01/13/24 01/13/24 18:59 06:59 18:59 Intake Total 222 Output Total 150 Balance 72 Intake: Oral 222 Output: Urine 150 Other: Voiding Method Bedside Commode Bedside Commode Bedside Commode # Voids 2 1 - Labs CBC & Chem 7: 01/13/24 09:40 01/13/24 10:51 Labs: Abnormal Lab Results - Last 24 Hours (Table) 01/12/24 01/13/24 01/13/24 Range/Units 08:47 09:40 09:40 WBC 11.8 H (3.8-10.6) k/uL Neutrophils # 9.9 H (1.3-7.7) k/uL Lymphocytes # 0.7 L (1.0-4.8) k/uL Sodium 118 L* (137-145) mmol/L Potassium 3.0 L (3.5-5.1) mmol/L Chloride 83 L (98-107) mmol/L Glucose 138 H (74-99) mg/dL Magnesium 1.3 L (1.6-2.3) mg/dL HDL Cholesterol 73.50 H (40.00-60.00) mg/dL 01/13/24 Range/Units 10:51 WBC (3.8-10.6) k/uL Neutrophils # (1.3-7.7) k/uL Lymphocytes # (1.0-4.8) k/uL Sodium 118 L* (137-145) mmol/L Potassium 3.0 L (3.5-5.1) mmol/L Chloride 83 L (98-107) mmol/L Glucose 126 H (74-99) mg/dL Magnesium 1.4 L (1.6-2.3) mg/dL HDL Cholesterol (40.00-60.00) mg/dL
--- NOTE | 2024-01-13 14:07 | P.CONS ---
History of Present Illness - Reason for Consult Consult date: 01/13/24 Rehab needs - History of Present Illness The patient is a 73-year-old female who is right-handed and lives with grandson in a single-story home with 4 steps to enter. She was previously using a single prong cane to walk. She does have a wheelchair at home but does not use it. She was previously independent for all basic and advanced activities of daily living. She does have a history of Graves' disease, hypertension and A fib and RA. She presented to the hospital with confusion. She was found to have left facial droop. She was outside of TPA window. CT head was negative for acute process, showed chronic white matter changes. CTA showed mild dolichoectasia of right intracranial vertebral artery. MRI of the brain was done that showed restricted diffusion in right cerebral hemisphere consistent with acute inf arcts. She has been evaluated by PT but has been too lethargic today, likely from roland that she has been taking for her eye pain. Past Medical History Past Medical History: Atrial Fibrillation, Fibromyalgia, Hypertension, Osteoarthritis (OA), Rheumatoid Arthritis (RA), Thyroid Disorder Additional Past Medical History / Comment(s): Arthritis History of Any Multi-Drug Resistant Organisms: None Reported Past Surgical History: Hysterectomy, Orthopedic Surgery Past Psychological History: No Psychological Hx Reported Smoking Status: Never smoker Past Alcohol Use History: None Reported Past Drug Use History: None Reported - Past Family History Mother Family Medical History: Hypertension Medications and Allergies Home Medications Medication Instructions Recorded Confirmed Type Aspirin EC [Ecotrin Low Dose] 81 mg PO DAILY 01/10/24 01/10/24 History Back And Body (Sivakumar) Caffeine 2 tab PO Q6H PRN 01/10/24 01/10/24 History 32.5 Mg + Aspirin 500mg Losartan Potassium [Cozaar] 100 mg PO DAILY 01/10/24 01/10/24 History Metoprolol Tartrate [Lopressor] 100 mg PO BID 01/10/24 01/10/24 History diphenhydrAMINE [Benadryl] 25 mg PO Q6H PRN 01/10/24 01/10/24 History hydroCHLOROthiazide [Hydrodiuril] 12.5 mg PO DAILY 01/10/24 01/10/24 History methIMAzole [Tapazole] 5 mg PO DAILY 01/10/24 01/10/24 History Allergies Allergy/AdvReac Type Severity Reaction Status Date / Time ciprofloxacin [From Cipro] Allergy Rash/Hives Verified 01/10/24 17:59 acetaminophen AdvReac Hallucinati Verified 01/10/24 17:59 [From Darvocet-N] ons propoxyphene AdvReac Hallucinati Verified 01/10/24 17:59 [From Darvocet-N] ons Physical Exam Vitals: Vital Signs Temp Pulse Resp BP Pulse Ox 01/13/24 12:00 100 16 165/91 95 01/13/24 08:00 97.3 F L 76 16 171/100 96 01/13/24 03:28 97.6 F 78 18 182/97 94 L 01/12/24 23:53 85 18 198/95 96 01/12/24 21:00 90 18 178/95 98 01/12/24 15:30 84 16 201/101 95 01/12/24 15:13 96 Intake and Output 01/12/24 01/13/24 01/13/24 22:59 06:59 14:59 Other: Voiding Method Bedside Commode Bedside Commode Bedside Commode # Voids 2 1 General : No acute distress, lethargic in bed Respiratory: no audible wheezing, not requiring O2 HEENT: proptosis from Graves, PERRLA Abdomen: Non distended, non tender Neuro: Lethargic, but arousable, following one step commands but continues to fall asleep. Unable to get good MMT- LUE is at least anti gravity though. She is able to dorsiflex b/l ankles at least 4 out of 5 MSK: changes of RA in b/l hands Results CBC & Chem 7: 01/13/24 09:40 01/13/24 10:51 Labs: Abnormal Lab Results - Last 24 Hours (Table) 01/12/24 01/13/24 01/13/24 Range/Units 08:47 09:40 09:40 WBC 11.8 H (3.8-10.6) k/uL Neutrophils # 9.9 H (1.3-7.7) k/uL Lymphocytes # 0.7 L (1.0-4.8) k/uL Sodium 118 L* (137-145) mmol/L Potassium 3.0 L (3.5-5.1) mmol/L Chloride 83 L (98-107) mmol/L Glucose 138 H (74-99) mg/dL Magnesium 1.3 L (1.6-2.3) mg/dL HDL Cholesterol 73.50 H (40.00-60.00) mg/dL 01/13/24 Range/Units 10:51 WBC (3.8-10.6) k/uL Neutrophils # (1.3-7.7) k/uL Lymphocytes # (1.0-4.8) k/uL Sodium 118 L* (137-145) mmol/L Potassium 3.0 L (3.5-5.1) mmol/L Chloride 83 L (98-107) mmol/L Glucose 126 H (74-99) mg/dL Magnesium 1.4 L (1.6-2.3) mg/dL HDL Cholesterol (40.00-60.00) mg/dL Assessment and Plan Assessment: Acute Right CVA with left hemiparesis -PT/OT -DAPT per neuro -Would benefit from IPR given below baseline function and able to tolerate 3 hrs/day to get home safely A fib -Will be started on Xarelto over the weekend HTN, uncontrolled -Being managed by medicine Hypovolemic hyponatremia -Nephro following RA -Pain mgmt with [place] PRN Diet -Mechanical chopped, 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 She is independent with bed mobility and transfers but has not walked with therapy. As long as she is able to ambulate safely she can go home with home Pt/OT. Otherwise, PMR should evaluate for possible IPR admission.
--- NOTE | 2024-01-13 16:04 | P.PN ---
Subjective Progress Note Date: 01/13/24 I am following-up with patient and is accompanied with her daughter who states she is more sleepy since received [place] which does that to her. It seems she was complaining of pain and was given [place]. Objective - Vital Signs Vital signs: Vital Signs Temp 97.3 F L 01/13/24 08:00 Pulse 100 01/13/24 12:00 Resp 16 01/13/24 12:00 BP 165/91 01/13/24 12:00 Pulse Ox 95 01/13/24 12:00 FiO2 Intake & Output 01/12/24 01/13/24 01/13/24 18:59 06:59 18:59 Intake Total 222 Output Total 150 1257 Balance 72 -1257 Intake: Oral 222 Output: Urine 150 600 Straight 600 Post Void Residual 657 Other: Voiding Method Bedside Commode Bedside Commode Bedside Commode # Voids 2 1 - Exam General: Lying in bed and does not appear in acute distress. Extremities: Has severe extremities changes from her Arthritis (mostly distal in feet > hands). Neuro: Is severely drowsy. Stated her name correctly. Minimally followed few commands (showing thumbs up). Mild left lower facial weakness. Some of the workup during his hospital visit consisted of: CBC with differential is unremarkable TSH is 2.75 and free T4 is 1.27 Lipid panel: TG 82, chol 185, LDL [address] of the head is reported as chronic mild periventricular white matter ischemic changes. Acute process is not otherwise evident. fusiform prominence of basilar artery and possibly left posterior communicating artery. I personally reviewed the CT and there is no acute subacute ischemia. CTA head and neck is reported as Mild dolichoectasia of intracranial right vertebral artery, with lesser involvement suggested of the bsilar artery and proximal FLIGHT AGENT's. No intracranial larger vessel occlusion, signficiant stenosis or sizable aneurysme detected in the limits of CTA. UDS is unremarkable. MRI Brain is reported as multiple relatively small of resticted diffused in the right cerebral hemipshere, consistent with acute/subacute infarcts. No significant mass effect. No midline shift or brain herniation. Background moderate generalized brain atrophy and chronic microvascular ischemic changes. Scatter remote mirohemorrhages. I personally reviewed MRI and agree there is acute stroke over the right hemisphere 2D echo: it is reported as severe bilateral enlargement. Preserved left ventricle systolic function. 2+ tricuspid regurgitation mild to moderate mitral regurgitation. - Labs CBC & Chem 7: 01/13/24 09:40 01/13/24 10:51 Labs: Abnormal Lab Results - Last 24 Hours (Table) 01/12/24 01/13/24 01/13/24 Range/Units 08:47 09:40 09:40 WBC 11.8 H (3.8-10.6) k/uL Neutrophils # 9.9 H (1.3-7.7) k/uL Lymphocytes # 0.7 L (1.0-4.8) k/uL Sodium 118 L* (137-145) mmol/L Potassium 3.0 L (3.5-5.1) mmol/L Chloride 83 L (98-107) mmol/L Glucose 138 H (74-99) mg/dL Magnesium 1.3 L (1.6-2.3) mg/dL HDL Cholesterol 73.50 H (40.00-60.00) mg/dL 01/13/24 Range/Units 10:51 WBC (3.8-10.6) k/uL Neutrophils # (1.3-7.7) k/uL Lymphocytes # (1.0-4.8) k/uL Sodium 118 L* (137-145) mmol/L Potassium 3.0 L (3.5-5.1) mmol/L Chloride 83 L (98-107) mmol/L Glucose 126 H (74-99) mg/dL Magnesium 1.4 L (1.6-2.3) mg/dL HDL Cholesterol (40.00-60.00) mg/dL Assessment and Plan Assessment: this is a 73-year-old woman with history of A. fib who is on aspirin and not anticoagulation due to history of bleed who presents because of confusion and on presentation her blood pressure was 220s over 140s.seems that she also developed a left lower facial weakness yesterday. On examination she has a in addition to the facial weakness has a mild dysarthria and the left upper extremity weakness. Acute to subacute ischemic stroke over the right hemisphere (multiple scattered that small in size). Appears embolic and likely cardioemboli (hx of A-fib and not on anticoagulation). Presents with left facial droop with left upper extremity weakness and dysarthria. No IV thrombolytic due to outside the window. Encephalopathy due to hyponatremia (118) and medication use ([place]) Hypertensive encephalopathy---improved. Hypertensive emergency 2D echo: it is reported as severe bilateral enlargement. Preserved left ventricle systolic function. 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 fib not on any anticoagulation due to history of vaginal bleeding History of rheumatoid arthritis History of osteoarthritis underlying history of hypertension Plan: Patient is on aspirin 81 mg and per family members she was easily. Family members and patient is in agreement of starting Plavix 75mg daily in addition to ASA because of acute stroke. we'll avoid anticoagulation at this time since has acute stoke to avoid hemorrhagic conversion. Primary also discussed with anticoagulation and she agree with use and recommend starting on 01/14/2024 to avoid risk of hemorrhagic conversion. Once anticoagulation is started can stop Plavix. Patient is on on Lipitor 20 mg daily at bedtime if she develops any the myalgia then we'll discontinue the medication. Statin was started for secondary stroke prophylaxis If patient continues to be confused will get repeat CT head. It seems per daughter she received [place] which caused her in past to be confused. Also she has hyponatremia. Continue neuro checks Cardiac monitoring PT, OT and PATIENT REGISTRATION REP are consulted. I consulted inpatient rehab. cardiothoracic is consulted for incidental finding on CT angiography of nonpenetrating aortic wall ulcer. Cardiology is consulted We'll defer the rest of the medical management to primary and other specialist. For DVT prophyalxis. is on subq heparin. Upon discharge, patient needs to follow-up with neurologist as outpatient within 1-2 weeks. The plan is discussed with patient, her daughter who is at bedside and primary team. Time with Patient: Less than 30
--- NOTE | 2024-01-13 17:34 | CT ---
EXAMINATION TYPE: CT brain wo con DATE OF EXAM: 01/13/2024 COMPARISON: 01/10/2024 HISTORY: AMS CT DLP: 1212.4 mGycm Automated exposure control for dose reduction was used. Findings: The exam is markedly limited secondary to involuntary patient motion. The ventricles, basal cisterns and sulci over the convexities are within normal limits and there is n o mass effect or shift of midline structures. There appears to been areas of decreased parenchymal density in the right cerebral hemisphere includi ng the right temporal and parietal lobes as well as in the right centrum semiovale. The findings sugg est presence of acute infarction. There is no acute intra or extra-axial hemorrhage. The posterior fossa including the brainstem, fourth ventricle and cerebellar pontine angles appear no rmal. Intraorbital contents appear normal and symmetric. Visualized paranasal sinuses and mastoid air cells are well aerated. The calvarium is intact. IMPRESSION: 1. Markedly limited study secondary to involuntary patient motion 2. No acute intra or extra-axial hemorrhage. 3. Cannot exclude large areas of infarction involving the right cerebral hemisphere as described [place]
[2024-01-13] MEDS: IBUPROFEN 400 MG TAB PO PRN (22:24)
--- NOTE | 2024-01-13 23:34 | PN ---
PROGRESS NOTE This is a 73-year-old lady, whom I am seeing for the 1st time and has history of persistent atrial fibrillation, Graves disease, and hypertension, came in to the hospital with symptoms of stroke with left-sided weakness. Cardiology was asked to see the patient because of uncontrolled hypertension. At the time of my evaluation, the patient has altered sensorium. The nurse tells me that her blood pressures have been poorly controlled and she is more confused than usual and has developed profound hyponatremia with her sodium level of 118. It dropped from 154 three days ago. Nephrology is on the case. PHYSICAL EXAMINATION: GENERAL: On exam, the patient is not communicating with us. VITAL SIGNS: Afebrile. Heart rate is 76 beats per minute. Blood pressure is 177/100. CHEST: Reveals diminished air entry bilaterally. HEART: Reveals first and second heart sounds. No gallop. EXTREMITIES: Did not reveal any edema. The patient is currently on aspirin, Lipitor, Plavix, hydralazine, Lopressor 100 b.i.d., and Norvasc 10 mg daily. Patient is also on methimazole. ASSESSMENT AND PLAN: 1. CVA. 2. Severe uncontrolled hypertension. 3. Persistent atrial fibrillation. PLAN: Patient apparently stopped taking anticoagulant because of some issues related to bruising from the anticoagulant. I will add Catapres to what she is on for better blood pressure control. Hyponatremia needs to be treated, which is probably responsible for her altered mental status. Nephrology is already on the case and we will address this. MMEBONIL / IJN: [id number] /
[2024-01-13 23:57] LABS: Glucose,Whole Blood 110 mg/dL (70-110)
[2024-01-14] MEDS: SODIUM CHLORIDE 3%(HYPERTONIC) 500 ML IV ONE ×2 (00:20→00:50)
[2024-01-14 03:51] LABS: African American GFR (CKD) >90 (>60 ml/min/1.73 sqM); Anion Gap 1 mmol/L; Blood Urea Nitrogen 10 mg/dL (7-17); Calcium 7.8 mg/dL (8.4-10.2); Carbon Dioxide 28 mmol/L (22-30); Chloride 88 mmol/L (98-107); Glucose 98 mg/dL (74-99); Non-African American GFR(CKD) 86 (>60 ml/min/1.73 sqM)
[2024-01-14 04:04] LABS: Sodium 117 mmol/L (137-145)
[2024-01-14] MEDS ORDERED: Potassium Replacement Protocol 1 EACH MISC MISCELLANE PRN (04:07)
[2024-01-14] MEDS: POTASSIUM CHLORIDE ER 20 MEQ TAB.ER PO SCH (05:30)
[2024-01-14 06:16] LABS: Basophils % (A) 0 %; Eosinophils # (A) 0.2 k/uL (0-0.7); Eosinophils % (A) 2 %; HGB 12.1 gm/dL (11.4-16.0); Lymphocytes # (A) 1.1 k/uL (1.0-4.8); Lymphocytes % (A) 13 %; MCH 30.2 pg (25.0-35.0); MCHC 32.8 g/dL (31.0-37.0); MCV 91.9 fL (80.0-100.0); Mean Platelet Volume 8.3; Monocytes # (A) 0.8 k/uL (0-1.0); Monocytes % (A) 9 %; Neutrophils # (A) 6.6 k/uL (1.3-7.7); Neutrophils % (A) 74 %; Platelet Count 122 k/uL (150-450); RBC 4.02 m/uL (3.80-5.40); RDW 14.1 % (11.5-15.5); WBC 8.9 k/uL (3.8-10.6)
[2024-01-14 06:29] LABS: African American GFR (CKD) >90 (>60 ml/min/1.73 sqM); Anion Gap 4 mmol/L; Blood Urea Nitrogen 10 mg/dL (7-17); Calcium 7.9 mg/dL (8.4-10.2); Carbon Dioxide 26 mmol/L (22-30); Chloride 88 mmol/L (98-107); Glucose 88 mg/dL (74-99); Magnesium 2.3 mg/dL (1.6-2.3); Non-African American GFR(CKD) 87 (>60 ml/min/1.73 sqM); Potassium 3.1 mmol/L (3.5-5.1)
[2024-01-14 07:06] LABS: Sodium 118 mmol/L (137-145)
--- NOTE | 2024-01-14 11:37 | P.PN ---
Subjective Progress Note Date: 01/14/24 Hospital Course: 73-year-old female with hypertension, Graves' disease, persistent atrial fibri llation not on anticoagulation presenting with confusion and strokelike symptoms. Upon presentation to the ED she was found to have high blood pressure systolic 240/140 patient had a stroke workup in the ED CT scan of the brain showed no acute intracranial pathology however showed questionable fusiform left posterior basilar artery with recommendations to perform CTA of the head and neck, she was given hydralazine IV push in the ED which lowered her blood pressure to systolic of 180. EKG showed A-fib. chest x-ray was showing mild cardiomegaly without any acute cardiopulmonary process. Patient then developed left-sided facial droop as well as left upper and lower extremity weakness. Neurology also consulted. MRI brain pending. CTA head and neck also showed a small rounded focal outpouching of contrast seen along the left wall of aortic arch extending into soft plaque suggesting a penetrating ulcer, no dissection flap is seen. Cardiology and vascular surgery also consulted. MRI brain shows multiple relatively small areas of restricted diffusion in the right cerebral hemisphere consistent with acute/subacute infarcts. Scattered remote microhemorrhages. Now started on anticoagulation does have decreased oral intake, sodium dropping. Nephrology consulted. Requiring hypertonic saline. In medical ICU. Echocardiogram shows preserved LV systolic function, 3+ tricuspid regurgitation, mild to moderate mitral regurgitation. Subjective: Patient seen and examined at bedside. No acute events overnight. Feeling slightly better compared to before. Pertinent positives and negatives as discussed above, a complete review of systems was performed and all other systems are negative. Vitals Signs Reviewed. General: Nontoxic, no distress, appears at stated age Derm: Warm, dry Head: Atraumatic, normocephalic, symmetric Eyes: EOMI, no lid lag, anicteric sclera Mouth: No lip lesion, mucus membranes moist Cardiovascular: S1S2 reg, no murmur Lungs: CTA bilateral, no rhonchi, no rales, no accessory muscle use Abdominal: Soft, nontender to palpation, no guarding, no appreciable organomegaly Ext: No gross muscle atrophy, no edema, no contractures Neuro: Left-sided facial droop, strength 4/5 on left upper and lower extremity. Psych: Alert, oriented, appropriate affect Data Reviewed Today: Pertinent Labs: WBC 8.9, hemoglobin 12.1, platelet 122, sodium 118, potassium 3.1, magnesium 2.3 Imaging: Repeat head CT did not show any acute process. Assessment and Plan: Active: Acute encephalopathy, metabolic Acute CVA, with left-sided deficits Hypertensive emergency Persistent atrial fibrillation Hyponatremia, likely hypovolemic -Discussed management with neurology, started on Xarelto 20, continue on aspirin 81, atorvastatin 20, discontinued Plavix. Monitor for bleeding. - Blood pressure improved. Patient is on amlodipine 10, hydralazine 25 3 times daily, losartan 100 daily, metoprolol 100 twice daily, on hydralazine 10 IV every 6 hours as needed - Cardiology following - Nephrology following, started patient on hypertonic saline, continue to monitor sodium very closely - Seizure precautions in place - PT/OT/speech therapy Incidental finding of nonpenetrating aortic wall ulcer -Vascular surgery note reviewed, no interventions planned, Follow-up CT in 6 months. Chronic: Rheumatoid arthritis - on [place] as needed for pain, monitor for sedation Graves' disease DVT ppx: xarelto Code status: Full code Anticipated discharge place: Pending clinical course Anticipated discharge time: Pending clinical course Objective - Vital Signs Vital signs: Vital Signs Temp 98.1 F 01/14/24 08:00 Pulse 75 01/14/24 11:00 Resp 16 01/14/24 11:00 BP 113/78 01/14/24 11:00 Pulse Ox 85 L 01/14/24 09:00 FiO2 Intake & Output 01/13/24 01/14/24 01/14/24 18:59 06:59 18:59 Intake Total 175 25 Output Total 1257 1400 510 Balance -8232 -5297 -498 Weight 61.8 kg Intake: Intake, IV Titration 175 25 Amount Sodium Chloride 3%( 175 25 Hypertonic) 500 ml @ 25 mls/hr IV .Q20H ONE Rx#: [id number] Output: Urine 600 1400 510 Straight 600 500 Post Void Residual 657 Other: Voiding Method Bedside Commode Indwelling Catheter Indwelling Catheter - Labs CBC & Chem 7: 01/14/24 05:22 01/14/24 09:15 Labs: Abnormal Lab Results - Last 24 Hours (Table) 01/13/24 01/13/24 01/13/24 Range/Units 10:51 12:12 19:03 Plt Count (150-450) k/uL Sodium 114 L* (137-145) mmol/L Potassium (3.5-5.1) mmol/L Chloride (98-107) mmol/L Osmolality 250 L (275-295) mOsm/kg Calcium (8.4-10.2) mg/dL Ur Random Uric Acid 28.4 L (37.0-92.0) mg/dL 01/14/24 01/14/24 01/14/24 Range/Units 00:02 02:49 05:22 Plt Count (150-450) k/uL Sodium 117 L* 117 L* 118 L* (137-145) mmol/L Potassium 3.0 L 3.1 L (3.5-5.1) mmol/L Chloride 88 L 88 L (98-107) mmol/L Osmolality (275-295) mOsm/kg Calcium 7.8 L 7.9 L (8.4-10.2) mg/dL Ur Random Uric Acid (37.0-92.0) mg/dL 01/14/24 01/14/24 Range/Units 05:22 09:15 Plt Count 122 L (150-450) k/uL Sodium 123 L (137-145) mmol/L Potassium (3.5-5.1) mmol/L Chloride (98-107) mmol/L Osmolality (275-295) mOsm/kg Calcium (8.4-10.2) mg/dL Ur Random Uric Acid (37.0-92.0) mg/dL
--- NOTE | 2024-01-14 11:47 | P.PN ---
Subjective Progress Note Date: 01/14/24 I am following-up with patient and it seems she was transferred to ICU yesterday. Her mentation is drastically better. she feels better and denies of any headache or any new deficit. Objective - Vital Signs Vital signs: Vital Signs Temp 98.1 F 01/14/24 08:00 Pulse 75 01/14/24 11:00 Resp 16 01/14/24 11:00 BP 113/78 01/14/24 11:00 Pulse Ox 85 L 01/14/24 09:00 FiO2 Intake & Output 01/13/24 01/14/24 01/14/24 18:59 06:59 18:59 Intake Total 175 25 Output Total 1257 1400 510 Balance -7379 -9592 -505 Weight 61.8 kg Intake: Intake, IV Titration 175 25 Amount Sodium Chloride 3%( 175 25 Hypertonic) 500 ml @ 25 mls/hr IV .Q20H ONE Rx#: [id number] Output: Urine 600 1400 510 Straight 600 500 Post Void Residual 657 Other: Voiding Method Bedside Commode Indwelling Catheter Indwelling Catheter - Exam General: Lying in bed and does not appear in acute distress. Neuro: Is mildly drowsy but is awake, alert, oriented to self, place and time. Is following simple commands. No aphasia. Has hypophonia. Mild left lower facial weakness. Some of the workup during his hospital visit consisted of: CBC with differential is unremarkable TSH is 2.75 and free T4 is 1.27 Lipid panel: TG 82, chol 185, LDL [address] of the head is reported as chronic mild periventricular white matter ischemic changes. Acute process is not otherwise evident. fusiform prominence of basilar artery and possibly left posterior communicating artery. I personally reviewed the CT and there is no acute subacute ischemia. CTA head and neck is reported as Mild dolichoectasia of intracranial right ve rtebral artery, with lesser involvement suggested of the bsilar artery and proximal MANAGER LEAN's. No intracranial larger vessel occlusion, signficiant stenosis or sizable aneurysme detected in the limits of CTA. UDS is unremarkable. MRI Brain is reported as multiple relatively small of resticted diffused in the right cerebral hemipshere, consistent with acute/subacute infarcts. No significant mass effect. No midline shift or brain herniation. Background moderate generalized brain atrophy and chronic microvascular ischemic changes. Scatter remote mirohemorrhages. I personally reviewed MRI and agree there is acute stroke over the right hemisphere 2D echo: it is reported as severe bilateral enlargement. Preserved left ventricle systolic function. 2+ tricuspid regurgitation mild to moderate mitral regurgitation. Repeat CT head is reported as markedly limited study secondary to involuntary patient motion. Cannot exclude large area of infarction involving the right cerebral hemisphere. I personally reviewed and agree there is significant motion artifact and it is hard to appreciate ischemia but appear on right as seen on MRI. - Labs CBC & Chem 7: 01/14/24 05:22 01/14/24 09:15 Labs: Abnormal Lab Results - Last 24 Hours (Table) 01/13/24 01/13/24 01/13/24 Range/Units 10:51 12:12 19:03 Plt Count (150-450) k/uL Sodium 114 L* (137-145) mmol/L Potassium (3.5-5.1) mmol/L Chloride (98-107) mmol/L Osmolality 250 L (275-295) mOsm/kg Calcium (8.4-10.2) mg/dL Ur Random Uric Acid 28.4 L (37.0-92.0) mg/dL 01/14/24 01/14/24 01/14/24 Range/Units 00:02 02:49 05:22 Plt Count (150-450) k/uL Sodium 117 L* 117 L* 118 L* (137-145) mmol/L Potassium 3.0 L 3.1 L (3.5-5.1) mmol/L Chloride 88 L 88 L (98-107) mmol/L Osmolality (275-295) mOsm/kg Calcium 7.8 L 7.9 L (8.4-10.2) mg/dL Ur Random Uric Acid (37.0-92.0) mg/dL 01/14/24 01/14/24 Range/Units 05:22 09:15 Plt Count 122 L (150-450) k/uL Sodium 123 L (137-145) mmol/L Potassium (3.5-5.1) mmol/L Chloride (98-107) mmol/L Osmolality (275-295) mOsm/kg Calcium (8.4-10.2) mg/dL Ur Random Uric Acid (37.0-92.0) mg/dL Assessment and Plan Assessment: this is a 73-year-old woman with history of A. fib who is on aspirin and not anticoagulation due to history of bleed who presents because of confusion and on presentation her blood pressure was 220s over 140s.seems that she also developed a left lower facial weakness yesterday. On examination she has a in addition to the facial weakness has a mild dysarthria and the left upper extremity weakness. Acute to subacute ischemic stroke over the right hemisphere (multiple scattered that small in size). Appears embolic and likely cardioemboli (hx of A-fib and not on anticoagulation). Presents with left facial droop with left upper extremity weakness and dysarthria. No IV thrombolytic due to outside the window. Encephalopathy due to hyponatremia (118) and medication use ([place])---mentation drastically better today. Hypertensive encephalopathy---improved. Hypertensive emergency 2D echo: it is reported as severe bilateral enlargement. Preserved left ventricle systolic function. 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 fib not on any anticoagulation due to history of vaginal bleeding History of rheumatoid arthritis History of osteoarthritis underlying history of hypertension Plan: Patient is on aspirin 81 mg and per family members she was easily. Family members and patient is in agreement of starting Plavix 75mg daily in addition to ASA because of acute stroke. Patient is agreement of trying anticoagulation again and primary will try Xarelto. Can start today and once starts today can stop Plavix from neurological perspective. Patient is on on Lipitor 20 mg daily at bedtime if she develops any the myalgia then we'll discontinue the medication. Statin was started for secondary stroke prophylaxis Continue neuro checks Cardiac monitoring PT, OT and FOUNDER are consulted. I consulted inpatient rehab. cardiothoracic is consulted for incidental finding on CT angiography of nonpenetrating aortic wall ulcer. Cardiology is consulted We'll defer the rest of the medical management to primary and other specialist. For DVT prophyalxis. is on subq heparin. Upon discharge, patient needs to follow-up with neurologist as outpatient within 1-2 weeks. The plan is discussed with patient, and primary team. Time with Patient: Less than 30
--- NOTE | 2024-01-14 13:28 | P.CNPUL ---
History of Present Illness Consult date: 01/14/24 Requesting physician: Nic Clarke Reason for consult: other (Critical care management) Chief complaint: Altered mental status, hypertension History of present illness: This is a 73-year-old female patient with a known history of Graves' disease, rheumatoid arthritis, fibromyalgia, hypertension, right CVA with left-sided weakness who presented here to the emergency room back on 01/10/2024 with altered mental status and a bad headache. CT scan of the brain revealed fusiform prominence of the basilar artery and possibly left posterior communicating artery. Chronic mild periventricular white matter ischemic changes. Acute process not otherwise evident. MRI reveals multiple relatively small areas of restricted diffusion in the right cerebral hemisphere consistent with subacute/acute infarct. No mass effect. He has been having issues with hyponatremia. Last evening her sodium dropped to 114 and she was needing 3% normal saline per nephrology and was transferred to the intensive care unit for the same. He is seen today in consultation in the ICU. She is currently awake and alert in no acute distress. She is maintaining O2 saturations in the 90s on room air. Her 3% normal saline has been off since 730 this morning. Most recent sodium 123. She remains stable and on room air. Afebrile. Hemodynamically stable. Chest x-ray revealed no acute pulmonary process. Count 8.9. Hemoglobin 12.1. Sodium 123. Potassium 3.1. Bicarb 26. BUN 10. Creatinine 0.67. Glucose 88. Review of Systems REVIEW OF SYSTEMS: CONSTITUTIONAL: Denies any recent significant weight loss or weight gain. EYES: Denies change in vision. EARS, NOSE, MOUTH, THROAT: Positive for headaches, denies sore throat. CARDIOVASCULAR: Denies chest pain, palpitations or syncopal episodes. RESPIRATORY: Denies shortness of breath, cough, congestion or hemoptysis. GASTROINTESTINAL: Denies change in appetite, denies abdominal pain GENITOURINARY: Denies hematuria, denies infections. MUSKULOSKELETAL: Denies pain, denies swelling. INTEGUMENTARY: Denies rash, denies eczema. NEUROLOGICAL: As it of for altered mental status, no recent seizure activity. PSYCHIATRIC: Denies anxiety, denies depression. HEMATOLOGIC/LYMPHATIC: Denies anemia, denies enlarged lymph nodes. Past Medical History Past Medical History: Atrial Fibrillation, Fibromyalgia, Hypertension, Osteoarthritis (OA), Rheumatoid Arthritis (RA), Thyroid Disorder Additional Past Medical History / Comment(s): Arthritis History of Any Multi-Drug Resistant Organisms: None Reported Past Surgical History: Hysterectomy, Orthopedic Surgery Past Psychological History: No Psychological Hx Reported Smoking Status: Never smoker Past Alcohol Use History: None Reported Past Drug Use History: None Reported - Past Family History Mother Family Medical History: Hypertension Medications and Allergies Home Medications Medication Instructions Recorded Confirmed Type Aspirin EC [Ecotrin Low Dose] 81 mg PO DAILY 01/10/24 01/10/24 History [employer] And [employer] (Sivakumar) Caffeine 2 tab PO Q6H PRN 01/10/24 01/10/24 History 32.5 Mg + Aspirin 500mg Losartan Potassium [Cozaar] 100 mg PO DAILY 01/10/24 01/10/24 History Metoprolol Tartrate [Lopressor] 100 mg PO BID 01/10/24 01/10/24 History diphenhydrAMINE [Benadryl] 25 mg PO Q6H PRN 01/10/24 01/10/24 History hydroCHLOROthiazide [Hydrodiuril] 12.5 mg PO DAILY 01/10/24 01/10/24 History methIMAzole [Tapazole] 5 mg PO DAILY 01/10/24 01/10/24 History Allergies Allergy/AdvReac Type Severity Reaction Status Date / Time ciprofloxacin [From Cipro] Allergy Rash/Hives Verified 01/10/24 17:59 acetaminophen AdvReac Hallucinati Verified 01/10/24 17:59 [From Darvocet-N] ons propoxyphene AdvReac Hallucinati Verified 01/10/24 17:59 [From Darvocet-N] ons Physical Exam Vitals: Vital Signs Temp Pulse Pulse Resp BP BP Pulse Ox 01/14/24 12:00 98.4 F 78 13 113/78 91 L 01/14/24 11:00 75 16 113/78 01/14/24 10:00 77 16 158/90 01/14/24 09:00 96 22 140/82 85 L 01/14/24 08:00 98.1 F 89 10 L 140/89 97 01/14/24 07:00 85 6 L 138/76 96 01/14/24 06:00 73 12 141/107 96 01/14/24 05:00 61 13 96/61 94 L 01/14/24 04:00 99 F 61 13 107/73 95 01/14/24 03:00 70 14 95/62 92 L 01/14/24 02:00 74 21 151/81 95 01/14/24 01:00 68 14 92/60 91 L 01/14/24 00:00 96 16 168/109 95 01/13/24 20:00 97.7 F 75 16 156/91 97 01/13/24 18:27 77 16 110/57 97 Intake and Output 01/13/24 01/14/24 01/14/24 22:59 06:59 14:59 Intake Total 175 25 Output Total 500 900 635 Balance -500 -725 -610 Intake: Intake, IV Titration 175 25 Amount Sodium Chloride 3%( 175 25 Hypertonic) 500 ml @ 25 mls/hr IV .Q20H ONE Rx#: [id number] Output: Urine 500 900 635 Straight 500 Other: Voiding Method Bedside Commode Indwelling Catheter Indwelling Catheter Weight 61.8 kg GENERAL EXAM: Alert, 73-year-old female, in no acute distress, on room air. HEAD: Normocephalic. EYES: Normal reaction of pupils, equal size. NOSE: Clear with pink turbinates. THROAT: No erythema or exudates. NECK: No masses, no JVD. CHEST: No chest wall deformity. LUNGS: Equal air entry with no crackles, wheeze, rhonchi or dullness. CVS: S1 and S2 normal with no audible murmur, regular rhythm. ABDOMEN: No hepatosplenomegaly, normal bowel sounds, no guarding or rigidity. SPINE: No scoliosis or deformity SKIN: No rashes CENTRAL NERVOUS SYSTEM: Confused at times, tone is normal in all 4 extremities. EXTREMITIES: There is no peripheral edema. No clubbing, no cyanosis. Peripheral pulses are intact. Results - Laboratory Findings CBC and BMP: 01/14/24 05:22 01/14/24 09:15 PT/INR, D-dimer PT 11.2 sec (10.0-12.5) 01/10/24 17:35 INR 1.0 (<1.2) 01/10/24 17:35 Abnormal lab findings: Abnormal Labs 01/10/24 01/10/24 01/10/24 17:35 17:35 18:25 WBC Plt Count Neutrophils # Lymphocytes # 0.7 L Sodium 134 L Potassium Chloride Carbon Dioxide 21 L BUN 20 H Glucose 168 H Osmolality Calcium Magnesium AST 38 H HDL Cholesterol Urine Protein 1+ H Ur Leukocyte Esterase Small H Ur Random Uric Acid 01/12/24 01/13/24 01/13/24 08:47 09:40 09:40 WBC 11.8 H Plt Count Neutrophils # 9.9 H Lymphocytes # 0.7 L Sodium 118 L* Potassium 3.0 L Chloride 83 L Carbon Dioxide BUN Glucose 138 H Osmolality Calcium Magnesium 1.3 L AST HDL Cholesterol 73.50 H Urine Protein Ur Leukocyte Esterase Ur Random Uric Acid 01/13/24 01/13/24 01/13/24 10:51 12:12 19:03 WBC Plt Count Neutrophils # Lymphocytes # Sodium 118 L* 114 L* Potassium 3.0 L Chloride 83 L Carbon Dioxide BUN Glucose 126 H Osmolality 250 L Calcium Magnesium 1.4 L AST HDL Cholesterol Urine Protein Ur Leukocyte Esterase Ur Random Uric Acid 28.4 L 01/14/24 01/14/24 01/14/24 00:02 02:49 05:22 WBC Plt Count Neutrophils # Lymphocytes # Sodium 117 L* 117 L* 118 L* Potassium 3.0 L 3.1 L Chloride 88 L 88 L Carbon Dioxide BUN Glucose Osmolality Calcium 7.8 L 7.9 L Magnesium AST HDL Cholesterol Urine Protein Ur Leukocyte Esterase Ur Random Uric Acid 01/14/24 01/14/24 05:22 09:15 WBC Plt Count 122 L Neutrophils # Lymphocytes # Sodium 123 L Potassium Chloride Carbon Dioxide BUN Glucose Osmolality Calcium Magnesium AST HDL Cholesterol Urine Protein Ur Leukocyte Esterase Ur Random Uric Acid - Diagnostic Findings Chest x-ray: image reviewed Assessment and Plan Assessment: Altered mental status secondary to hyponatremia secondary to poor oral intake, thiazide diuretics Acute/subacute CVA, neurology following Hypertensive emergency, recovered Graves' disease Rheumatoid arthritis Hyper tension Fibromyalgia History of CVA Plan: The patient was seen and evaluated Chest x-ray, labs and medications reviewed Current sodium 123 Off 3% normal saline since 7:30 this morning Could transfer out of the intensive care unit later today Will continue to follow and make further recommendations based on her clinical status I have personally seen and examined the patient, performed the documentation and the assessment and plan as written. Number of minutes spent on the visit: 20.
--- NOTE | 2024-01-14 13:53 | P.PN ---
Subjective Progress Note Date: 01/14/24 Patient seen in follow-up for hyponatremia. Transferred to ICU overnight do to worsening sodium and started on 3%. Seen this morning doing OK and feeling a little better. Vital signs are stable. General: Resting in bed. NAD HEENT: Head exam is unremarkable. LUNGS: No audible rhonchi or wheezes. HEART: Rate and Rhythm are regular. ABDOMEN: Nontender. EXTREMITITES: No edema. Objective - Vital Signs Vital signs: Vital Signs Temp 98.1 F 01/14/24 08:00 Pulse 96 01/14/24 09:00 Resp 22 01/14/24 09:00 BP 140/82 01/14/24 09:00 Pulse Ox 85 L 01/14/24 09:00 FiO2 Intake & Output 01/13/24 01/14/24 01/14/24 18:59 06:59 18:59 Intake Total 175 25 Output Total 1257 1400 335 Balance -9269 -1225 -310 Weight 61.8 kg Intake: Intake, IV Titration 175 25 Amount Sodium Chloride 3%( 175 25 Hypertonic) 500 ml @ 25 mls/hr IV .Q20H ONE Rx#: [id number] Output: Urine 600 1400 335 Straight 600 500 Post Void Residual 657 Other: Voiding Method Bedside Commode Indwelling Catheter - Labs CBC & Chem 7: 01/14/24 05:22 01/14/24 09:15 Labs: Abnormal Lab Results - Last 24 Hours (Table) 01/13/24 01/13/24 01/13/24 Range/Units 09:40 10:51 12:12 Plt Count (150-450) k/uL Sodium 118 L* 118 L* (137-145) mmol/L Potassium 3.0 L 3.0 L (3.5-5.1) mmol/L Chloride 83 L 83 L (98-107) mmol/L Glucose 138 H 126 H (74-99) mg/dL Osmolality 250 L (275-295) mOsm/kg Calcium (8.4-10.2) mg/dL Magnesium 1.3 L 1.4 L (1.6-2.3) mg/dL Ur Random Uric Acid 28.4 L (37.0-92.0) mg/dL 01/13/24 01/14/24 01/14/24 Range/Units 19:03 00:02 02:49 Plt Count (150-450) k/uL Sodium 114 L* 117 L* 117 L* (137-145) mmol/L Potassium 3.0 L (3.5-5.1) mmol/L Chloride 88 L (98-107) mmol/L Glucose (74-99) mg/dL Osmolality (275-295) mOsm/kg Calcium 7.8 L (8.4-10.2) mg/dL Magnesium (1.6-2.3) mg/dL Ur Random Uric Acid (37.0-92.0) mg/dL 01/14/24 01/14/24 Range/Units 05:22 05:22 Plt Count 122 L (150-450) k/uL Sodium 118 L* (137-145) mmol/L Potassium 3.1 L (3.5-5.1) mmol/L Chloride 88 L (98-107) mmol/L Glucose (74-99) mg/dL Osmolality (275-295) mOsm/kg Calcium 7.9 L (8.4-10.2) mg/dL Magnesium (1.6-2.3) mg/dL Ur Random Uric Acid (37.0-92.0) mg/dL Assessment and Plan Plan: Assessment: 1. Hyponatremia. Etiology is poor solute intake and use of thiazide diuretic. Sodium level was 134 on admission, dropped to 114, now up to 123 today. No u rinary retention. TSH normal this admission. 2. Acute/subacute CVA. Neurology following. 3. Hypertensive emergency. 4. Hypokalemia from poor intake, diuretic use and hypomagnesemia. 5. Hypomagnesemia from poor intake and diuretic use. 6. Graves' disease maintained on methimazole. Plan: Discontinue hydrochlorothiazide indefinitely. 3% given overnight with improvement in sodium now off. Will start normal saline at 75cc/hr this evening. Replace potassium Add 1500 cc fluid restriction. Continue check BMP every 4 hours
[2024-01-14] MEDS ORDERED: POTASSIUM CHLORIDE ER 20 MEQ TAB.ER PO SCH (15:00)
[2024-01-14] MEDS: RIVAROXABAN 20 MG TAB PO SCH (16:54)
[2024-01-14 21:10] LABS: African American GFR (CKD) >90 (>60 ml/min/1.73 sqM); Anion Gap 7 mmol/L; Blood Urea Nitrogen 10 mg/dL (7-17); Calcium 8.6 mg/dL (8.4-10.2); Carbon Dioxide 26 mmol/L (22-30); Chloride 93 mmol/L (98-107); Glucose 98 mg/dL (74-99); Magnesium 2.1 mg/dL (1.6-2.3); Non-African American GFR(CKD) >90 (>60 ml/min/1.73 sqM); Potassium 3.5 mmol/L (3.5-5.1); Sodium 126 mmol/L (137-145)
--- NOTE | 2024-01-14 22:43 | PN ---
PROGRESS NOTE SUBJECTIVE: A 73-year-old lady, who is admitted to ICU with persistent atrial fibrillation, hypertension, and Graves disease. She had CVA with left-sided weakness. Appears pleasantly confused. OBJECTIVE: VITAL SIGNS: Heart rate is 75 beats per minute, blood pressure is 120/78, respiratory rate 18. CHEST: Reveals diminished air entry at the bases. HEART: Reveals first and second heart sounds. Systolic murmur at the left lower sternal border. ABDOMEN: Soft. EXTREMITIES: Did not reveal any edema. Peripheral pulses are felt. LABORATORY DATA: Lab show that the sodium is 123, which is an improvement from yesterday. ASSESSMENT AND PLAN: 1. Hyponatremia. 2. CVA. 3. Hypertension, better controlled. 4. Persistent atrial fibrillation. The patient is currently on aspirin, Norvasc, Lipitor, apresoline, Cozaar, and Xarelto, which she is going to continue. Hyponatremia is being managed by the pole climber. MMODL / IJN: [id number] /
[2024-01-15 06:40] LABS: Basophils % (A) 0 %; Eosinophils # (A) 0.1 k/uL (0-0.7); Eosinophils % (A) 1 %; HCT 39.2 % (34.0-46.0); HGB 12.8 gm/dL (11.4-16.0); Lymphocytes # (A) 0.6 k/uL (1.0-4.8); Lymphocytes % (A) 7 %; MCH 30.3 pg (25.0-35.0); MCHC 32.7 g/dL (31.0-37.0); MCV 92.8 fL (80.0-100.0); Mean Platelet Volume 8.1; Monocytes # (A) 0.8 k/uL (0-1.0); Monocytes % (A) 10 %; Neutrophils # (A) 7.1 k/uL (1.3-7.7); Neutrophils % (A) 80 %; Platelet Count 146 k/uL (150-450); RBC 4.22 m/uL (3.80-5.40); RDW 14.1 % (11.5-15.5); WBC 8.8 k/uL (3.8-10.6)
[2024-01-15 06:51] LABS: African American GFR (CKD) >90 (>60 ml/min/1.73 sqM); Anion Gap 5 mmol/L; Blood Urea Nitrogen 9 mg/dL (7-17); Calcium 8.2 mg/dL (8.4-10.2); Carbon Dioxide 24 mmol/L (22-30); Chloride 98 mmol/L (98-107); Glucose 90 mg/dL (74-99); Magnesium 1.9 mg/dL (1.6-2.3); Non-African American GFR(CKD) >90 (>60 ml/min/1.73 sqM); Potassium 3.4 mmol/L (3.5-5.1); Sodium 127 mmol/L (137-145)
--- NOTE | 2024-01-15 10:11 | P.PN ---
Subjective Progress Note Date: 01/15/24 History of present illness: History of present illness: This is a 73-year-old female with past medical history of persistent atrial fibrillation, Graves' disease, hypertension. We have been asked to evaluate the patient for hypertensive emergency. Patient presented to the hospital with a blood pressure of 229/142. She is status post hydralazine 20 mg IV push followed by 10 mg IV push. Home medications have not been resumed and blood pressure is currently 137/85. Family state that patient was not acting right at home and had left sided weakness that is improved today. Patient denies feeling abnormal and denies weakness. Patient was on Eliquis in the past but stopped due to significant bruising. She was last seen in the office with Dr. Ceballos in 2019. Blood pressure readings are fluctuating. Dr. Mccann discussed in detail with the patient and son the need for anticoagulation to prevent further TIA/CVA and discussed option of watchman procedure in the future. Patient is also seeing a retinal specialist and has had retinal bleedng with treatments which is a concern voiced by patient's son but should not interfere with anticoagulation. EKG atrial fibrillation at 82 bpm Chest x-ray: No acute process. Mild cardiomegaly. CT of the brain fusiform prominence of the basilar artery and possible left posterior communicating artery. Chronic mild periventricular white matter ischemic changes. CT angiogram of the head and neck reveals no evidence of stenosis, dissection, pseudoaneurysm in the bilateral cervical carotid or vertebral arteries. Soft plaque of the aorta with mild involve the proximal left vertebral artery resulting in mild narrowing. Small rounded focal outpouching of contrast in the left wall of the aortic arch extending into soft plaque suggesting a penetrating ulcer.. Mild dolichoectasia of the intracranial right vertebral artery with lesser involvement suggestive the basilar artery and proximal hearing screen coordinator. No intracranial large vessel occlusion, stenosis, sizable aneurysm detected. CBC, INR unremarkable. Sodium 134, potassium 3.9, BUN 20 creatinine 0.75. Glucose 168. AST 38, troponin negative x 1. TSH 2.75. Drug screen negative. Urinalysis negative for infection. Home cardiac medications: Aspirin 81 mg daily, hydrochlorothiazide 12.5 mg daily, losartan 100 mg daily, Lopressor 100 mg twice daily. 01/14 Patient has been transferred out of the intensive care unit and seen on the cardiac stepdown unit today. She is complaining of arthritic pain today. No chest pain. No palpitations. She has had an MRI consistent with right-sided stroke. Patient has not been on anticoagulation in the past due to vaginal bleeding and this was discussed in detail with her and she has been started on Xarelto 20 mg with supper starting yesterday evening. Echocardiogram had revealed preserved LV systolic function. Severe biatrial enlargement. 3+ tricuspid regurgitation and mild to moderate mitral regurgitation. Blood pressure 120/74-167/90, heart rate in the 70s to 90s, pulse ox 97% on room air. Repeat blood work reveals hemoglobin 12.8. Sodium 127, potassium 3.4 and creatinine 0.54. Physical examination: Gen: This is a 73-year-old female in no acute distress] VS: reviewed HEENT: Head is atraumatic, normocephalic. Pupils equal, round. Sclerae is anicteric. LUNGS: Clear to auscultation. No wheezes or rhonchi. No intercostal retractions. HEART: Regular rate and rhythm. Systolic murmur at the left lower sternal border. EXTREMITIES: No pedal edema. No calf tenderness. Assessment: Hyponatremia Metabolic encephalopathy secondary to hyponatremia CVA, followed by neurology Hypertensive emergency Graves' disease Persistent atrial fibrillation Plan: Continue patient on amlodipine 10 mg daily, aspirin 81 mg, atorvastatin, hydralazine at 25 mg 3 times daily, Lopressor 100 mg twice daily twice daily Continue patient on Xarelto 20 mg with supper Further recommendations to follow based upon clinical course Nurse practitioner note has been reviewed, I agree with documented findings and plan of care. Patient was seen and examined. Objective - Vital Signs Vital signs: Vital Signs Temp 98.3 F 01/15/24 03:29 Pulse 70 01/15/24 03:29 Resp 14 01/15/24 03:29 BP 120/74 01/15/24 03:29 Pulse Ox 95 01/15/24 03:29 FiO2 Intake & Output 01/14/24 01/15/24 01/15/24 18:59 06:59 18:59 Intake Total 400 150 Output Total 775 1050 Balance -375 -900 Intake: IV 225 150 0.9 225 150 Intake, IV Titration 25 Amount Sodium Chloride 3%( 25 Hypertonic) 500 ml @ 25 mls/hr IV .Q20H ONE Rx#: [id number] Oral 150 Output: Urine 775 1050 Other: Voiding Method Indwelling Catheter Indwelling Catheter - Labs CBC & Chem 7: 01/15/24 06:03 01/15/24 06:03 Labs: Abnormal Lab Results - Last 24 Hours (Table) 01/14/24 01/14/24 01/15/24 Range/Units 09:15 20:14 06:03 Plt Count 146 L (150-450) k/uL Lymphocytes # 0.6 L (1.0-4.8) k/uL Sodium 123 L 126 L (137-145) mmol/L Potassium (3.5-5.1) mmol/L Chloride 93 L (98-107) mmol/L Calcium (8.4-10.2) mg/dL 01/15/24 Range/Units 06:03 Plt Count (150-450) k/uL Lymphocytes # (1.0-4.8) k/uL Sodium 127 L (137-145) mmol/L Potassium 3.4 L (3.5-5.1) mmol/L Chloride (98-107) mmol/L Calcium 8.2 L (8.4-10.2) mg/dL
--- NOTE | 2024-01-15 10:55 | P.PN ---
Subjective Progress Note Date: 01/15/24 Patient seen in follow-up for hyponatremia. Transferred out of ICU. Seen this morning, having a lot of pain related to her arthritis. Vital signs are stable. General: Resting in bed. NAD HEENT: Head exam is unremarkable. LUNGS: No audible rhonchi or wheezes. HEART: Rate and Rhythm are regular. ABDOMEN: Nontender. EXTREMITITES: No edema. Objective - Vital Signs Vital signs: Vital Signs Temp 98.3 F 01/15/24 03:29 Pulse 70 01/15/24 03:29 Resp 14 01/15/24 03:29 BP 120/74 01/15/24 03:29 Pulse Ox 95 01/15/24 03:29 FiO2 Intake & Output 01/14/24 01/15/24 01/15/24 18:59 06:59 18:59 Intake Total 400 150 Output Total 775 1050 Balance -375 -900 Intake: IV 225 150 0.9 225 150 Intake, IV Titration 25 Amount Sodium Chloride 3%( 25 Hypertonic) 500 ml @ 25 mls/hr IV .Q20H ONE Rx#: [id number] Oral 150 Output: Urine 775 1050 Other: Voiding Method Indwelling Catheter Indwelling Catheter - Labs CBC & Chem 7: 01/15/24 06:03 01/15/24 06:03 Labs: Abnormal Lab Results - Last 24 Hours (Table) 01/14/24 01/14/24 01/15/24 Range/Units 09:15 20:14 06:03 Plt Count 146 L (150-450) k/uL Lymphocytes # 0.6 L (1.0-4.8) k/uL Sodium 123 L 126 L (137-145) mmol/L Potassium (3.5-5.1) mmol/L Chloride 93 L (98-107) mmol/L Calcium (8.4-10.2) mg/dL 01/15/24 Range/Units 06:03 Plt Count (150-450) k/uL Lymphocytes # (1.0-4.8) k/uL Sodium 127 L (137-145) mmol/L Potassium 3.4 L (3.5-5.1) mmol/L Chloride (98-107) mmol/L Calcium 8.2 L (8.4-10.2) mg/dL Assessment and Plan Plan: Assessment: 1. Hyponatremia. Etiology is poor solute intake and use of thiazide diuretic. Sodium level was 134 on admission, dropped to 114, improved 127. No urinary retention. TSH normal this admission. 2. Acute/subacute CVA. Neurology following. 3. Hypertensive emergency. 4. Hypokalemia from poor intake, diuretic use and hypomagnesemia. 5. Hypomagnesemia from poor intake and diuretic use. 6. Graves' disease maintained on methimazole. Plan: Discontinue hydrochlorothiazide indefinitely. Sodium correcting at appropriate rate. Continue normal saline at 75cc/hr. Replace potassium 1500 cc fluid restriction.
--- NOTE | 2024-01-15 11:01 | P.PN ---
Subjective Progress Note Date: 01/15/24 I am following-up with patient and is doing about the same. No new neurological issues. Objective - Vital Signs Vital signs: Vital Signs Temp 98.4 F 01/15/24 08:00 Pulse 91 01/15/24 08:00 Resp 20 01/15/24 08:00 BP 167/90 01/15/24 08:00 Pulse Ox 97 01/15/24 08:00 FiO2 Intake & Output 01/14/24 01/15/24 01/15/24 18:59 06:59 18:59 Intake Total 400 150 Output Total 775 1050 350 Balance -375 -900 -350 Intake: IV 225 150 0.9 225 150 Intake, IV Titration 25 Amount Sodium Chloride 3%( 25 Hypertonic) 500 ml @ 25 mls/hr IV .Q20H ONE Rx#: [id number] Oral 150 Output: Urine 775 1050 350 Other: Voiding Method Indwelling Catheter Indwelling Catheter Indwelling Catheter - Exam General: Lying in bed and does not appear in acute distress. Neuro: Minimal since was sleeping Has minimal left lower facial weakness. Some of the workup during his hospital visit consisted of: CBC with differential is unremarkable TSH is 2.75 and free T4 is 1.27 Lipid panel: TG 82, chol 185, LDL [address] of the head is reported as chronic mild periventricular white matter ischemic changes. Acute process is not otherwise evident. fusiform prominence of basilar artery and possibly left posterior communicating artery. I personally reviewed the CT and there is no acute subacute ischemia. CTA head and neck is reported as Mild dolichoectasia of intracranial right vertebral artery, with lesser involvement suggested of the bsilar artery and proximal BATTALION CHIEF's. No intracranial larger vessel occlusion, signficiant stenosis or sizable aneurysme detected in the limits of CTA. UDS is unremarkable. MRI Brain is reported as multiple relatively small of resticted diffused in the right cerebral hemipshere, consistent with acute/subacute infarcts. No significant mass effect. No midline shift or brain herniation. Background moderate generalized brain atrophy and chronic microvascular ischemic changes. Scatter remote mirohemorrhages. I personally reviewed MRI and agree there is acute stroke over the right hemisphere 2D echo: it is reported as severe bilateral enlargement. Preserved left ventricle systolic function. 2+ tricuspid regurgitation mild to moderate mitral regurgitation. Repeat CT head is reported as markedly limited study secondary to involuntary patient motion. Cannot exclude large area of infarction involving the right cerebral hemisphere. I personally reviewed and agree there is significant motion artifact and it is hard to appreciate ischemia but appear on right as seen on MRI. - Labs CBC & Chem 7: 01/15/24 06:03 01/15/24 06:03 Labs: Abnormal Lab Results - Last 24 Hours (Table) 01/14/24 01/14/24 01/15/24 Range/Units 09:15 20:14 06:03 Plt Count 146 L (150-450) k/uL Lymphocytes # 0.6 L (1.0-4.8) k/uL Sodium 123 L 126 L (137-145) mmol/L Potassium (3.5-5.1) mmol/L Chloride 93 L (98-107) mmol/L Calcium (8.4-10.2) mg/dL 01/15/24 Range/Units 06:03 Plt Count (150-450) k/uL Lymphocytes # (1.0-4.8) k/uL Sodium 127 L (137-145) mmol/L Potassium 3.4 L (3.5-5.1) mmol/L Chloride (98-107) mmol/L Calcium 8.2 L (8.4-10.2) mg/dL Assessment and Plan Assessment: this is a 73-year-old woman with history of A. fib who is on aspirin and not anticoagulation due to history of bleed who presents because of confusion and on presentation her blood pressure was 220s over 140s.seems that she also developed a left lower facial weakness yesterday. On examination she has a in addition to the facial weakness has a mild dysarthria and the left upper extremity weakness. Acute to subacute ischemic stroke over the right hemisphere (multiple scattered that small in size). Appears embolic and likely cardioemboli (hx of A-fib and not on anticoagulation). Presents with left facial droop with left upper extremity weakness and dysarthria. No IV thrombolytic due to outside the window. Encephalopathy due to hyponatremia (118) and medication use ([place])---mentation drastically better today. Hyponatremia is improving Hypertensive encephalopathy---improved. Hypertensive emergency 2D echo: it is reported as severe bilateral enlargement. Preserved left ventricle systolic function. 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 fib not on any anticoagulation due to history of vaginal bleeding History of rheumatoid arthritis History of osteoarthritis underlying history of hypertension Plan: Plavix was discontinued since Xarelto was started yesterday for her hx of A-fib. She is resumed on her home dose of ASA 81mg daily. Patient is on on Lipitor 20 mg daily at bedtime if she develops any the myalgia then we'll discontinue the medication. Statin was started for secondary stroke prophylaxis Continue neuro checks Cardiac monitoring PT, OT and WEED SPRAYER are consulted. Inpatient rehab consulted. cardiothoracic is consulted for incidental finding on CT angiography of nonpenetrating aortic wall ulcer. Cardiology is consulted We'll defer the rest of the medical management to primary and other specialist. For DVT prophyalxis. is on Xarelto Upon discharge, patient needs to follow-up with neurologist as outpatient within 1-2 weeks. The plan is discussed with primary team. Dr. Prieto will resume neurology service tomorrow A.M. Time with Patient: Less than 30
--- NOTE | 2024-01-15 12:37 | P.PN ---
Subjective Progress Note Date: 01/15/24 Principal diagnosis: Low sodium. This is a 73-year-old female patient with a known history of Graves' disease, rheumatoid arthritis, fibromyalgia, hypertension, right CVA with left-sided weakness who presented here to the emergency room back on 01/10/2024 with altered mental status and a bad headache. CT scan of the brain revealed fusiform prominence of the basilar artery and possibly left posterior communicating artery. Chronic mild periventricular white matter ischemic changes. Acute process not otherwise evident. MRI reveals multiple relatively small areas of restricted diffusion in the right cerebral hemisphere consistent with subacute/acute infarct. No mass effect. He has been having issues with hyponatremia. Last evening her sodium dropped to 114 and she was needing 3% normal saline per nephrology and was transferred to the intensive care unit for the same. He is seen today in consultation in the ICU. She is currently awake and alert in no acute distress. She is maintaining O2 saturations in the 90s on room air. Her 3% normal saline has been off since 730 this morning. Most recent sodium 123. She remains stable and on room air. Afebrile. Hem odynamically stable. Chest x-ray revealed no acute pulmonary process. Count 8.9. Hemoglobin 12.1. Sodium 123. Potassium 3.1. Bicarb 26. BUN 10. Creatinine 0.67. Glucose 88. Progress note dated January 15, 2024. The patient is seen today in room 357. Today sodium is 127. She is on room air . She is getting saline at 75 cc an hour. The patient was seen in consultation yesterday. The patient was transferred to the intensive care unit, initially, because she was profoundly hyponatremic, and required 3% saline, which can only be run in the intensive care unit. Currently, she is very stable, without complaints. Current labs include a white count 8.8, hemoglobin 12.8, hematocrit 39.2, and a platelet count of 146,000. Sodium 127, potassium 3.4, chlorides 98, CO2 24, BUN 9, creatinine 0.54. Calcium is 8.2. Magnesium 1.9. Objective - Vital Signs Vital signs: Vital Signs Temp 98 F 01/15/24 12:00 Pulse 75 01/15/24 12:00 Resp 20 01/15/24 12:00 BP 113/70 01/15/24 12:00 Pulse Ox 94 L 01/15/24 12:00 FiO2 Intake & Output 01/14/24 01/15/24 01/15/24 18:59 06:59 18:59 Intake Total 400 150 Output Total 775 1050 350 Balance -375 -900 -350 Intake: IV 225 150 0.9 225 150 Intake, IV Titration 25 Amount Sodium Chloride 3%( 25 Hypertonic) 500 ml @ 25 mls/hr IV .Q20H ONE Rx#: [id number] Oral 150 Output: Urine 775 1050 350 Other: Voiding Method Indwelling Catheter Indwelling Catheter Indwelling Catheter - Exam No acute distress, oriented 3. Room air saturation 95%. HEENT examination is grossly unremarkable. Mucous membranes are moist. No oral lesions. Neck supple. Full range of motion. No adenopathy thyromegaly or neck vein distention. Cardiovascular examination reveals regular rhythm rate. S1-S2 normal. No S3 or S4. No discernible murmur noted. Heart rate 78 bpm. Lungs reveal clear breath sounds. Breath sounds are equal bilaterally. No adventitious lung sounds including wheezes rhonchi or crackles. Abdomen soft bowel sounds are heard. No masses or tenderness. Extremities are intact. No cyanosis clubbing or edema. Skin is without rash or lesion. Neurologic examination reveals the patient to be confused at times. - Labs CBC & Chem 7: 01/15/24 06:03 01/15/24 06:03 Labs: Abnormal Lab Results - Last 24 Hours (Table) 01/14/24 01/15/24 01/15/24 Range/Units 20:14 06:03 06:03 Plt Count 146 L (150-450) k/uL Lymphocytes # 0.6 L (1.0-4.8) k/uL Sodium 126 L 127 L (137-145) mmol/L Potassium 3.4 L (3.5-5.1) mmol/L Chloride 93 L (98-107) mmol/L Calcium 8.2 L (8.4-10.2) mg/dL Assessment and Plan Assessment: Altered mental status secondary to hyponatremia, secondary to poor oral intake, and thiazide diuretics. Acute/subacute CVA. Hypertensive emergency, recovered. Graves' disease. Rheumatoid arthritis. Hypertension. Fibromyalgia. Plan: Plan dated January 15, 2024. The patient is a DO NOT RESUSCITATE patient. The patient's sodium is up to 127. She only received 3% saline for short period of time. She is back to baseline. We will continue to follow, make recommendations were appropriate. Labs, x- rays, and all medications are reviewed. Prognosis is currently very guarded. Time with Patient: Less than 30
--- NOTE | 2024-01-15 12:49 | P.PN ---
Subjective Progress Note Date: 01/15/24 Hospital Course: 73-year-old female with hypertension, Graves' disease, persistent atrial fibri llation not on anticoagulation presenting with confusion and strokelike symptoms. Upon presentation to the ED she was found to have high blood pressure systolic 240/140 patient had a stroke workup in the ED CT scan of the brain showed no acute intracranial pathology however showed questionable fusiform left posterior basilar artery with recommendations to perform CTA of the head and neck, she was given hydralazine IV push in the ED which lowered her blood pressure to systolic of 180. EKG showed A-fib. chest x-ray was showing mild cardiomegaly without any acute cardiopulmonary process. Patient then developed left-sided facial droop as well as left upper and lower extremity weakness. Neurology also consulted. MRI brain pending. CTA head and neck also showed a small rounded focal outpouching of contrast seen along the left wall of aortic arch extending into soft plaque suggesting a penetrating ulcer, no dissection flap is seen. Cardiology and vascular surgery also consulted. MRI brain shows multiple relatively small areas of restricted diffusion in the right cerebral hemisphere consistent with acute/subacute infarcts. Scattered remote microhemorrhages. Now started on anticoagulation does have decreased oral intake, sodium dropping. Nephrology consulted. Required hypertonic saline in medical ICU. Echocardiogram shows preserved LV systolic function, 3+ tricuspid regurgitation, mild to moderate mitral regurgitation. Sodium now improving. Subjective: Patient seen and examined at bedside. No acute events overnight. Having arthritic pain all over her body Pertinent positives and negatives as discussed above, a complete review of systems was performed and all other systems are negative. Vitals Signs Reviewed. General: Nontoxic, no distress, appears at stated age Derm: Warm, dry Head: Atraumatic, normocephalic, symmetric Eyes: EOMI, no lid lag, anicteric sclera Mouth: No lip lesion, mucus membranes moist Cardiovascular: S1S2 reg, no murmur Lungs: CTA bilateral, no rhonchi, no rales, no accessory muscle use Abdominal: Soft, nontender to palpation, no guarding, no appreciable organomegaly Ext: No gross muscle atrophy, no edema, no contractures Neuro: Left-sided facial droop, strength 4/5 on left upper and lower extremity. Psych: Alert, oriented, appropriate affect Data Reviewed Today: Pertinent Labs: Hemoglobin 12.8, sodium 127, potassium 3.4, magnesium 1.9 Imaging: No new imaging Assessment and Plan: Active: Acute encephalopathy, metabolic, resolving Acute CVA, with left-sided deficits Hypertensive emergency, blood pressure improved Persistent atrial fibrillation Hyponatremia, likely hypovolemic, improving -Discussed management with neurology, continue on Xarelto 20, continue on aspirin 81, atorvastatin 20, Monitor for bleeding. - Blood pressure improved. Patient is on amlodipine 10, hydralazine 25 3 times daily, losartan 100 daily, metoprolol 100 twice daily, on hydralazine 10 IV every 6 hours as needed - Cardiology following - Nephrology note reviewed, continue to monitor sodium very closely, continue normal saline at 75 cc an hour, continue fluid restriction Pulmonology note reviewed, continue current management - Seizure precautions in place - PT/OT/speech therapy Incidental finding of nonpenetrating aortic wall ulcer -Vascular surgery note reviewed, no interventions planned, Follow-up CT in 6 months. Chronic: Rheumatoid arthritis - on [place] as needed for pain, monitor for sedation Graves' disease DVT ppx: [email or web address] Code status: Full code Anticipated discharge place: Pending clinical course Anticipated discharge time: Pending clinical course Objective - Vital Signs Vital signs: Vital Signs Temp 98 F 01/15/24 12:00 Pulse 75 01/15/24 12:00 Resp 20 01/15/24 12:00 BP 113/70 01/15/24 12:00 Pulse Ox 94 L 01/15/24 12:00 FiO2 Intake & Output 01/14/24 01/15/24 01/15/24 18:59 06:59 18:59 Intake Total 400 150 Output Total 775 1050 350 Balance -375 -900 -350 Intake: IV 225 150 0.9 225 150 Intake, IV Titration 25 Amount Sodium Chloride 3%( 25 Hypertonic) 500 ml @ 25 mls/hr IV .Q20H ONE Rx#: [id number] Oral 150 Output: Urine 775 1050 350 Other: Voiding Method Indwelling Catheter Indwelling Catheter Indwelling Catheter - Labs CBC & Chem 7: 01/15/24 06:03 01/15/24 06:03 Labs: Abnormal Lab Results - Last 24 Hours (Table) 01/14/24 01/15/24 01/15/24 Range/Units 20:14 06:03 06:03 Plt Count 146 L (150-450) k/uL Lymphocytes # 0.6 L (1.0-4.8) k/uL Sodium 126 L 127 L (137-145) mmol/L Potassium 3.4 L (3.5-5.1) mmol/L Chloride 93 L (98-107) mmol/L Calcium 8.2 L (8.4-10.2) mg/dL
[2024-01-15] MEDS: POTASSIUM CHLORIDE ER 20 MEQ TAB.ER PO SCH (13:38)
--- NOTE | 2024-01-15 15:28 | XR ---
EXAMINATION TYPE: XR shoulder complete RT DATE OF EXAM: 01/15/2024 3:12 PM CLINICAL INDICATION:Female, 73 years old with history of pain; COMPARISON: None TECHNIQUE: XR shoulder complete RT; examined in AP, internally rotated and scapular Y projections. FINDINGS: No evidence of acute osseous pathology, joint dislocation, or soft tissue swelling. The remaining po rtions of the visualized chest are unremarkable. IMPRESSION: 1. No acute osseous pathology. 2. Mild degeneration changes the right shoulder.
[2024-01-16 09:33] LABS: African American GFR (CKD) >90 (>60 ml/min/1.73 sqM); Anion Gap 10 mmol/L; Blood Urea Nitrogen 6 mg/dL (7-17); Calcium 8.6 mg/dL (8.4-10.2); Carbon Dioxide 21 mmol/L (22-30); Chloride 97 mmol/L (98-107); Glucose 111 mg/dL (74-99); Non-African American GFR(CKD) >90 (>60 ml/min/1.73 sqM); Potassium 3.4 mmol/L (3.5-5.1); Sodium 128 mmol/L (137-145)
[2024-01-16] MEDS ORDERED: Potassium Replacement Protocol 1 EACH MISC MISCELLANE PRN (10:40)
[2024-01-16] MEDS: POTASSIUM CHLORIDE ER 20 MEQ TAB.ER PO SCH (10:50)
--- NOTE | 2024-01-16 11:18 | P.PN ---
Subjective Progress Note Date: 01/16/24 Hospital Course: 73-year-old female with hypertension, Graves' disease, persistent atrial fibri llation not on anticoagulation presenting with confusion and strokelike symptoms. Upon presentation to the ED she was found to have high blood pressure systolic 240/140 patient had a stroke workup in the ED CT scan of the brain showed no acute intracranial pathology however showed questionable fusiform left posterior basilar artery with recommendations to perform CTA of the head and neck, she was given hydralazine IV push in the ED which lowered her blood pressure to systolic of 180. EKG showed A-fib. chest x-ray was showing mild cardiomegaly without any acute cardiopulmonary process. Patient then developed left-sided facial droop as well as left upper and lower extremity weakness. Neurology also consulted. MRI brain pending. CTA head and neck also showed a small rounded focal outpouching of contrast seen along the left wall of aortic arch extending into soft plaque suggesting a penetrating ulcer, no dissection flap is seen. Cardiology and vascular surgery also consulted. MRI brain shows multiple relatively small areas of restricted diffusion in the right cerebral hemisphere consistent with acute/subacute infarcts. Scattered remote microhemorrhages. Now started on anticoagulation does have decreased oral intake, sodium dropping. Nephrology consulted. Required hypertonic saline in medical ICU. Echocardiogram shows preserved LV systolic function, 3+ tricuspid regurgitation, mild to moderate mitral regurgitation. Sodium now improving. Subjective: Patient seen and examined at bedside. No acute events overnight. Having arthritic pain all over her body Pertinent positives and negatives as discussed above, a complete review of systems was performed and all other systems are negative. Vitals Signs Reviewed. General: Nontoxic, no distress, appears at stated age Derm: Warm, dry Head: Atraumatic, normocephalic, symmetric Eyes: EOMI, no lid lag, anicteric sclera Mouth: No lip lesion, mucus membranes moist Cardiovascular: S1S2 reg, no murmur Lungs: CTA bilateral, no rhonchi, no rales, no accessory muscle use Abdominal: Soft, nontender to palpation, no guarding, no appreciable organomegaly Ext: No gross muscle atrophy, no edema, no contractures Neuro: Left-sided facial droop, strength 4/5 on left upper and lower extremity. Psych: Alert, oriented, appropriate affect Data Reviewed Today: Pertinent Labs: Sodium 128, potassium 3.4, creatinine 0.46 Imaging: No new imaging Assessment and Plan: Active: Acute encephalopathy, metabolic, resolving Acute CVA, with left-sided deficits Hypertensive emergency, blood pressure improved Persistent atrial fibrillation Hyponatremia, likely hypovolemic, improving -Neurology following, continue on Xarelto 20, continue on aspirin 81, atorvastatin 20, Monitor for bleeding. - Blood pressure improved. Patient is on amlodipine 10, hydralazine 25 3 times daily, losartan 100 daily, metoprolol 100 twice daily, on hydralazine 10 IV every 6 hours as needed - Cardiology following - Nephrology following, continue to monitor sodium very closely, continue normal saline at 75 cc an hour, continue fluid restriction - 40 mEq of oral potassium given today -Pulmonology following - Seizure precautions in place - PT/OT/speech therapy Right shoulder pain -Shoulder x-ray did not show any acute process -Pain control with Tylenol as needed, [place] as needed, ibuprofen as needed Incidental finding of nonpenetrating aortic wall ulcer -Vascular surgery note reviewed, no interventions planned, Follow-up CT in 6 months. Chronic: Rheumatoid arthritis - on [place] as needed for pain, monitor for sedation Graves' disease DVT ppx: [email or web address] Code status: Full code Anticipated discharge place: Pending clinical course Anticipated discharge time: Pending clinical course Objective - Vital Signs Vital signs: Vital Signs Temp 97.9 F 01/16/24 04:00 Pulse 86 01/16/24 10:56 Resp 16 01/16/24 10:56 BP 159/79 01/16/24 10:56 Pulse Ox 95 01/16/24 10:56 FiO2 Intake & Output 01/15/24 01/16/24 01/16/24 18:59 06:59 18:59 Intake Total 900 180 Output Total 700 1750 700 Balance 200 -1750 -520 Intake: IV 900 0.9 900 Oral 180 Output: Urine 700 1750 700 Other: Voiding Method Indwelling Catheter Indwelling Catheter Indwelling Catheter - Labs CBC & Chem 7: 01/15/24 06:03 01/16/24 08:50 Labs: Abnormal Lab Results - Last 24 Hours (Table) 01/16/24 Range/Units 08:50 Sodium 128 L (137-145) mmol/L Potassium 3.4 L (3.5-5.1) mmol/L Chloride 97 L (98-107) mmol/L Carbon Dioxide 21 L (22-30) mmol/L BUN 6 L (7-17) mg/dL Creatinine 0.46 L (0.52-1.04) mg/dL Glucose 111 H (74-99) mg/dL
--- NOTE | 2024-01-16 11:36 | P.PN ---
Subjective patient is seen for follow-up for hyponatremia. Sodium has improved to 128. maintained on normal saline at 75 mL an hour. Overall feeling better. Potassium was 3.4. Objective - Vital Signs Vital signs: Vital Signs Temp 97.9 F 01/16/24 04:00 Pulse 86 01/16/24 10:56 Resp 16 01/16/24 10:56 BP 159/79 01/16/24 10:56 Pulse Ox 95 01/16/24 10:56 FiO2 Intake & Output 01/15/24 01/16/24 01/16/24 18:59 06:59 18:59 Intake Total 900 180 Output Total 700 1750 700 Balance 200 -1750 -520 Intake: IV 900 0.9 900 Oral 180 Output: Urine 700 1750 700 Other: Voiding Method Indwelling Catheter Indwelling Catheter Indwelling Catheter - Exam patient is awake, comfortable, no acute distress Examination of the heart S1 and S2 Examination of the lungs decreased breath sounds at the bases Abdomen is soft nontender Examination lower extremities shows no significant edema [employer] exam grossly intact - Labs CBC & Chem 7: 01/15/24 06:03 01/16/24 08:50 Labs: Abnormal Lab Results - Last 24 Hours (Table) 01/16/24 Range/Units 08:50 Sodium 128 L (137-145) mmol/L Potassium 3.4 L (3.5-5.1) mmol/L Chloride 97 L (98-107) mmol/L Carbon Dioxide 21 L (22-30) mmol/L BUN 6 L (7-17) mg/dL Creatinine 0.46 L (0.52-1.04) mg/dL Glucose 111 H (74-99) mg/dL Assessment and Plan Assessment: 1. Hyponatremia. Etiology is poor solute intake and use of thiazide diuretic. Sodium level was 134 on admission, dropped to 114, improved 128. maintained on normal saline. No urinary retention. TSH normal this admission. 2. Acute/subacute CVA. Neurology following. 3. Hypertensive emergency. 4. Hypokalemia from poor intake, diuretic use and hypomagnesemia. 5. Hypomagnesemia from poor intake and diuretic use. 6. Graves' disease maintained on methimazole. Plan: continue with normal saline Replace potassium. Encourage increased oral intake Repeat labs in a.m.
--- NOTE | 2024-01-16 12:47 | P.PN ---
Subjective HISTORY OF PRESENT ILLNESS: This is a 73-year-old female with past medical history of persistent atrial fibrillation, Graves' disease, hypertension. We have been asked to evaluate the patient for hypertensive emergency. Patient presented to the hospital with a blood pressure of 229/142. She is status post hydralazine 20 mg IV push followed by 10 mg IV push. Home medications have not been resumed and blood pressure is currently 137/85. Family state that patient was not acting right at home and had left sided weakness that is improved today. Patient denies feeling abnormal and denies weakness. Patient was on Eliquis in the past but stopped due to significant bruising. She was last seen in the office with Dr. Ceballos in 2019. Blood pres sure readings are fluctuating. Dr. Mccann discussed in detail with the patient and son the need for anticoagulation to prevent further TIA/CVA and discussed option of watchman procedure in the future. Patient is also seeing a retinal specialist and has had retinal bleedng with treatments which is a concern voiced by patient's son but should not interfere with anticoagulation. EKG atrial fibrillation at 82 bpm Chest x-ray: No acute process. Mild cardiomegaly. CT of the brain fusiform prominence of the basilar artery and possible left posterior communicating artery. Chronic mild periventricular white matter ischemic changes. CT angiogram of the head and neck reveals no evidence of stenosis, dissection, pseudoaneurysm in the bilateral cervical carotid or vertebral arteries. Soft plaque of the aorta with mild involve the proximal left vertebral artery resulting in mild narrowing. Small rounded focal outpouching of contrast in the left wall of the aortic arch extending into soft plaque suggesting a penetrating ulcer.. Mild dolichoectasia of the intracranial right vertebral artery with lesser involvement suggestive the basilar artery and proximal cigar packer and picker. No intracranial large vessel occlusion, stenosis, sizable aneurysm detected. CBC, INR unremarkable. Sodium 134, potassium 3.9, BUN 20 creatinine 0.75. Glucose 168. AST 38, troponin negative x 1. TSH 2.75. Drug screen negative. Urinalysis negative for infection. Home cardiac medications: Aspirin 81 mg daily, hydrochlorothiazide 12.5 mg daily, losartan 100 mg daily, Lopressor 100 mg twice daily. 01/14 Patient has been transferred out of the intensive care unit and seen on the cardiac stepdown unit today. She is complaining of arthritic pain today. No chest pain. No palpitations. She has had an MRI consistent with right-sided stroke. Patient has not been on anticoagulation in the past due to vaginal bleeding and this was discussed in detail with her and she has been started on Xarelto 20 mg with supper starting yesterday evening. Echocardiogram had revealed preserved LV systolic function. Severe biatrial enlargement. 3+ tricuspid regurgitation and mild to moderate mitral regurgitation. Blood pressure 120/74-167/90, heart rate in the 70s to 90s, pulse ox 97% on room air. Repeat blood work reveals hemoglobin 12.8. Sodium 127, potassium 3.4 and creatinine 0.54. 01/16/2024 Patient examined this morning at the bedside. Patient currently denies chest pain or pressure. She denies shortness of breath. She states that she feels generalized achiness today. Remote telemetry reveals atrial fibrillation with controlled ventricular rate. She is anticoagulated with Xarelto. Sodium remains low this morning at 128 although improved from admission. Potassium low at 3.4. PHYSICAL EXAM: VITAL SIGNS: Reviewed. GENERAL: Well-developed in no acute distress. NECK: Supple. No JVD or thyromegaly LUNGS: Respirations even and unlabored. Lungs essentially clear to auscultation bilaterally. HEART: Irregular rate and rhythm. S1 and S2 heard. Systolic murmur noted. EXTREMITIES: Normal range of motion. No clubbing or cyanosis. Peripheral pulses intact. No lower extremity edema ASSESSMENT: Hyponatremia Metabolic encephalopathy secondary to hyponatremia Acute/subacute CVA Hypertensive emergency Graves' disease Permanent atrial fibrillation, pt reports AF for at least 4 years in duration History of vaginal bleeding Hypokalemia Hypomagnesemia, resolved PLAN: Continue current cardiac medications Continue anticoagulation with Xarelto Monitor sodium levels. Repeat BMP in AM. Continue telemetry monitoring Further recommendations pending patient course Nurse practitioner note has been reviewed by physician. Signing provider agrees with the documented findings, assessment, and plan of care documented by PUMP STATION OPERATOR as a scribe. Objective - Vital Signs Vital signs: Vital Signs Temp 97.9 F 01/16/24 04:00 Pulse 86 01/16/24 10:56 Resp 16 01/16/24 10:56 BP 159/79 01/16/24 10:56 Pulse Ox 95 01/16/24 10:56 FiO2 Intake & Output 01/15/24 01/16/24 01/16/24 18:59 06:59 18:59 Intake Total 900 180 Output Total 700 1750 700 Balance 200 -1750 -520 Intake: IV 900 0.9 900 Oral 180 Output: Urine 700 1750 700 Other: Voiding Method Indwelling Catheter Indwelling Catheter Indwelling Catheter - Labs CBC & Chem 7: 01/15/24 06:03 01/16/24 08:50 Labs: Abnormal Lab Results - Last 24 Hours (Table) 01/16/24 Range/Units 08:50 Sodium 128 L (137-145) mmol/L Potassium 3.4 L (3.5-5.1) mmol/L Chloride 97 L (98-107) mmol/L Carbon Dioxide 21 L (22-30) mmol/L BUN 6 L (7-17) mg/dL Creatinine 0.46 L (0.52-1.04) mg/dL Glucose 111 H (74-99) mg/dL
--- NOTE | 2024-01-16 15:11 | P.PN ---
Subjective Progress Note Date: 01/16/24 This is a 73-year-old female patient with a known history of Graves' disease, rheumatoid arthritis, fibromyalgia, hypertension, right CVA with left-sided weakness who presented here to the emergency room back on 01/10/2024 with altered mental status and a bad headache. CT scan of the brain revealed fusiform prominence of the basilar artery and possibly left posterior communicating artery. Chronic mild periventricular white matter ischemic changes. Acute process not otherwise evident. MRI reveals multiple relatively small areas of restricted diffusion in the right cerebral hemisphere consistent with subacute/acute infarct. No mass effect. He has been having issues with hyponatremia. Last evening her sodium dropped to 114 and she was needing 3% normal saline per nephrology and was transferred to the intensive care unit for the same. He is seen today in consultation in the ICU. She is currently awake and alert in no acute distress. She is maintaining O2 saturations in the 90s on room air. Her 3% normal saline has been off since 730 this morning. Most recent sodium 123. She remains stable and on room air. Afebrile. Hemodynamically stable. Chest x-ray revealed no acute pulmonary process. Count 8.9. Hemoglobin 12.1. Sodium 123. Potassium 3.1. Bicarb 26. BUN 10. Creatinine 0.67. Glucose 88. Progress note dated January 15, 2024. The patient is seen today in room 357. Today sodium is 127. She is on room air. She is getting saline at 75 cc an hour. The patient was seen in consultation yesterday. The patient was transferred to the intensive care unit, initially, because she was profoundly hyponatremic, and required 3% saline, which can only be run in the intensive care unit. Currently, she is very stable, without complaints. Current labs include a white count 8.8, hemoglobin 12.8, hematocrit 39.2, and a platelet count of 146,000. Sodium 127, potassium 3 .4, chlorides 98, CO2 24, BUN 9, creatinine 0.54. Calcium is 8.2. Magnesium 1.9. On today's evaluation of 01/16/2024, the patient is being seen for a follow-up. This patient is feeling well. The patient is feeling fatigued (is appropriate and the patient is not having any focal neurological deficits. Noted the patient presented to us with acute mental status change at this point attributed to hyponatremia related to thiazides. The patient currently is on normal saline which is running at 75 cc an hour and sodium levels up to 128, potassium is at 3.4, BUN is at 6 with a creatinine of 0.4. The patient is currently on room air oxygen with a pulse ox of 98%. Denies having any significant respiratory distress. CAT scan of the brain was also done and the patient was found to have the possibility of a infarct within the right cerebral hemisphere and MRI of the brain from 01/11/2024 showed multiple areas of restricted diffusion in the right cerebral hemisphere consistent with an acute/subacute infarct. She remains on aspirin 81 mg p.o. daily. She remains on methimazole regarding her underlying hyperthyroidism. The patient also on anticoagulation with Xarelto. She remains in atrial fibrillation for now. Thiazide diuretics has been discontinued. The blood pressure is slightly elevated and the patient is currently on a combination of losartan and hydralazine and amlodipine. Objective - Vital Signs Vital signs: Vital Signs Temp 97.9 F 01/16/24 04:00 Pulse 96 01/16/24 08:00 Resp 16 01/16/24 08:00 BP 179/100 01/16/24 08:00 Pulse Ox 98 01/16/24 08:00 FiO2 Intake & Output 01/15/24 01/16/24 01/16/24 18:59 06:59 18:59 Intake Total 900 180 Output Total 700 1750 700 Balance 200 -1750 -520 Intake: IV 900 0.9 900 Oral 180 Output: Urine 700 1750 700 Other: Voiding Method Indwelling Catheter Indwelling Catheter Indwelling Catheter - Exam No acute distress, oriented 3. Room air saturation 95%. HEENT examination is grossly unremarkable. Mucous membranes are moist. No oral lesions. Neck supple. Full range of motion. No adenopathy thyromegaly or neck vein distention. Cardiovascular examination reveals irregular rhythm/normal rate. S1-S2 normal. No S3 or S4. No discernible murmur noted. Lungs reveal clear breath sounds. Breath sounds are equal bilaterally. No adve ntitious lung sounds including wheezes rhonchi or crackles. Abdomen soft bowel sounds are heard. No masses or tenderness. Extremities are intact. No cyanosis clubbing or edema. Skin is without rash or lesion. Neurologic examination reveals the patient to be confused at times. - Labs CBC & Chem 7: 01/15/24 06:03 01/16/24 08:50 Labs: Abnormal Lab Results - Last 24 Hours (Table) 01/16/24 Range/Units 08:50 Sodium 128 L (137-145) mmol/L Potassium 3.4 L (3.5-5.1) mmol/L Chloride 97 L (98-107) mmol/L Carbon Dioxide 21 L (22-30) mmol/L BUN 6 L (7-17) mg/dL Creatinine 0.46 L (0.52-1.04) mg/dL Glucose 111 H (74-99) mg/dL Assessment and Plan Plan: Altered mental status secondary to hyponatremia, secondary to poor oral intake, and thiazide diuretics. Hyponatremia, improving and a sodium levels at 128 Acute/subacute CVA. This has been confirmed initially on MRI of the brain and subsequently on a CAT scan of the brain. The patient has chronic A-fib. The patient is currently on anticoagulation with Xarelto. Hypertensive emergency, recovered. Blood pressure is being controlled by combination of losartan, hydralazine and amlodipine Graves' disease. Patient is currently on methimazole Rheumatoid arthritis. Hypertension. Fibromyalgia. Plan: Sodium levels at 128 Continue normal saline at rate of 75 cc an hour Mental status is appropriate and the patient is currently on a combination of aspirin and Xarelto Continue methimazole CAT scan of the brain and MRI of the brain were noted Blood pressure management Will continue to follow The patient is a DO NOT RESUSCITATE patient.
[2024-01-16] MEDS: ACETAMINOPHEN TAB 325 MG TAB PO PRN (18:33)
[2024-01-17 10:37] LABS: African American GFR (CKD) >90 (>60 ml/min/1.73 sqM); Anion Gap 10 mmol/L; Blood Urea Nitrogen 10 mg/dL (7-17); Calcium 8.9 mg/dL (8.4-10.2); Carbon Dioxide 20 mmol/L (22-30); Chloride 98 mmol/L (98-107); Glucose 162 mg/dL (74-99); Magnesium 1.5 mg/dL (1.6-2.3); Non-African American GFR(CKD) >90 (>60 ml/min/1.73 sqM); Potassium 3.8 mmol/L (3.5-5.1); Sodium 128 mmol/L (137-145)
--- NOTE | 2024-01-17 10:51 | P.PN ---
Subjective HISTORY OF PRESENT ILLNESS: This is a 73-year-old female with past medical history of persistent atrial fibrillation, Graves' disease, hypertension. We have been asked to evaluate the patient for hypertensive emergency. Patient presented to the hospital with a blood pressure of 229/142. She is status post hydralazine 20 mg IV push followed by 10 mg IV push. Home medications have not been resumed and blood pressure is currently 137/85. Family state that patient was not acting right at home and had left sided weakness that is improved today. Patient denies feeling abnormal and denies weakness. Patient was on Eliquis in the past but stopped due to significant bruising. She was last seen in the office with Dr. Ceballos in 2019. Blood pres sure readings are fluctuating. Dr. Mccann discussed in detail with the patient and son the need for anticoagulation to prevent further TIA/CVA and discussed option of watchman procedure in the future. Patient is also seeing a retinal specialist and has had retinal bleedng with treatments which is a concern voiced by patient's son but should not interfere with anticoagulation. EKG atrial fibrillation at 82 bpm Chest x-ray: No acute process. Mild cardiomegaly. CT of the brain fusiform prominence of the basilar artery and possible left posterior communicating artery. Chronic mild periventricular white matter ischemic changes. CT angiogram of the head and neck reveals no evidence of stenosis, dissection, pseudoaneurysm in the bilateral cervical carotid or vertebral arteries. Soft plaque of the aorta with mild involve the proximal left vertebral artery resulting in mild narrowing. Small rounded focal outpouching of contrast in the left wall of the aortic arch extending into soft plaque suggesting a penetrating ulcer.. Mild dolichoectasia of the intracranial right vertebral artery with lesser involvement suggestive the basilar artery and proximal manager home healthcare. No intracranial large vessel occlusion, stenosis, sizable aneurysm detected. CBC, INR unremarkable. Sodium 134, potassium 3.9, BUN 20 creatinine 0.75. Glucose 168. AST 38, troponin negative x 1. TSH 2.75. Drug screen negative. Urinalysis negative for infection. Home cardiac medications: Aspirin 81 mg daily, hydrochlorothiazide 12.5 mg daily, losartan 100 mg daily, Lopressor 100 mg twice daily. 01/14 Patient has been transferred out of the intensive care unit and seen on the cardiac stepdown unit today. She is complaining of arthritic pain today. No chest pain. No palpitations. She has had an MRI consistent with right-sided stroke. Patient has not been on anticoagulation in the past due to vaginal bleeding and this was discussed in detail with her and she has been started on Xarelto 20 mg with supper starting yesterday evening. Echocardiogram had revealed preserved LV systolic function. Severe biatrial enlargement. 3+ tricuspid regurgitation and mild to moderate mitral regurgitation. Blood pressure 120/74-167/90, heart rate in the 70s to 90s, pulse ox 97% on room air. Repeat blood work reveals hemoglobin 12.8. Sodium 127, potassium 3.4 and creatinine 0.54. 01/16/2024 Patient examined this morning at the bedside. Patient currently denies chest pain or pressure. She denies shortness of breath. She states that she feels generalized achiness today. Remote telemetry reveals atrial fibrillation with controlled ventricular rate. She is anticoagulated with Xarelto. Sodium remains low this morning at 128 although improved from admission. Potassium low at 3.4. 01/17/2024 Patient examined this morning. Patient is sitting up in the chair. Patient currently denies chest pain or pressure. She denies shortness of breath. The patient does have a rash on her back this morning. Remote telemetry reveals atrial fibrillation with controlled ventricular rate. Sodium level today 128, unchanged from yesterday. Magnesium is low today at 1.5. PHYSICAL EXAM: VITAL SIGNS: Reviewed. GENERAL: Well-developed in no acute distress. NECK: Supple. No JVD or thyromegaly LUNGS: Respirations even and unlabored. Lungs essentially clear to auscultation bilaterally. HEART: Irregular rate and rhythm. S1 and S2 heard. Systolic murmur noted. EXTREMITIES: Normal range of motion. No clubbing or cyanosis. Peripheral pulses intact. No lower extremity edema ASSESSMENT: Hyponatremia Metabolic encephalopathy secondary to hyponatremia Acute/subacute CVA Hypertensive emergency Graves' disease Permanent atrial fibrillation, pt reports AF for at least 4 years in duration History of vaginal bleeding Hypokalemia Hypomagnesemia Rash, noted on patients back, etiology unclear PLAN: Continue current cardiac medications Continue anticoagulation with Xarelto Monitor sodium levels. Repeat BMP in AM. Supplement magnesium Continue telemetry monitoring Patient is currently stable from a cardiac standpoint Primary medicine to address rash on patients back Further recommendations pending patient course Nurse practitioner note has been reviewed by physician. Signing provider agrees with the documented findings, assessment, and plan of care documented by CARDIOPULMONARY TECHNOLOGIST as a scribe. Objective - Vital Signs Vital signs: Vital Signs Temp 98.2 F 01/17/24 07:45 Pulse 98 01/17/24 07:45 Resp 18 01/17/24 07:45 BP 161/92 01/17/24 07:45 Pulse Ox 93 L 01/17/24 07:45 FiO2 Intake & Output 01/16/24 01/17/24 01/17/24 18:59 06:59 18:59 Intake Total 180 118 110 Output Total 700 550 Balance -520 -432 110 Intake: Oral 180 118 110 Output: Urine 700 550 Other: Voiding Method Indwelling Catheter Indwelling Catheter Indwelling Catheter - Labs CBC & Chem 7: 01/15/24 06:03 01/17/24 08:32 Labs: Abnormal Lab Results - Last 24 Hours (Table) 01/17/24 Range/Units 08:32 Sodium 128 L (137-145) mmol/L Carbon Dioxide 20 L (22-30) mmol/L Glucose 162 H (74-99) mg/dL Magnesium 1.5 L (1.6-2.3) mg/dL
--- NOTE | 2024-01-17 11:14 | P.PN ---
Subjective patient is seen for follow-up for hyponatremia. Sodium has improved to 128. maintained on normal saline at 75 mL an hour. Overall feeling better. Potassium was 3.8 Objective - Vital Signs Vital signs: Vital Signs Temp 98.2 F 01/17/24 07:45 Pulse 98 01/17/24 07:45 Resp 18 01/17/24 07:45 BP 161/92 01/17/24 07:45 Pulse Ox 93 L 01/17/24 07:45 FiO2 Intake & Output 01/16/24 01/17/24 01/17/24 18:59 06:59 18:59 Intake Total 180 118 110 Output Total 700 550 Balance -520 -432 110 Intake: Oral 180 118 110 Output: Urine 700 550 Other: Voiding Method Indwelling Catheter Indwelling Catheter Indwelling Catheter - Exam patient is awake, comfortable, no acute distress Examination of the heart S1 and S2 Examination of the lungs decreased breath sounds at the bases Abdomen is soft nontender Examination lower extremities shows no significant edema SPECIAL EDUCATION SUPERVISOR exam grossly intact - Labs CBC & Chem 7: 01/15/24 06:03 01/17/24 08:32 Labs: Abnormal Lab Results - Last 24 Hours (Table) 01/17/24 Range/Units 08:32 Sodium 128 L (137-145) mmol/L Carbon Dioxide 20 L (22-30) mmol/L Glucose 162 H (74-99) mg/dL Magnesium 1.5 L (1.6-2.3) mg/dL Assessment and Plan Assessment: 1. Hyponatremia. Etiology is poor solute intake and use of thiazide diuretic. Sodium level was 134 on admission, dropped to 114, improved 128. maintained on normal saline. No urinary retention. TSH normal this admission. 2. Acute/subacute CVA. Neurology following. 3. Hypertensive emergency. 4. Hypokalemia from poor intake, diuretic use and hypomagnesemia. 5. Hypomagnesemia from poor intake and diuretic use. 6. Graves' disease maintained on methimazole. Plan: DC saline as blood pressure is high repeat sodium this evening Encourage increased oral intake particularly protein Repeat labs in a.m.
[2024-01-17] MEDS: MAGNESIUM SULFATE-D5W PMX 1 GM in DEXTROSE/WATER 1 100ML.BAG IVPB SCH (11:57)
[2024-01-17] MEDS: HYDROCORTISONE 1% CREAM 30 GM TUBE TOPICAL PRN (11:57)
--- NOTE | 2024-01-17 13:21 | P.PN ---
Subjective Progress Note Date: 01/17/24 Hospital Course: 73-year-old female with hypertension, Graves' disease, persistent atrial fibri llation not on anticoagulation presenting with confusion and strokelike symptoms. Upon presentation to the ED she was found to have high blood pressure systolic 240/140 patient had a stroke workup in the ED CT scan of the brain showed no acute intracranial pathology however showed questionable fusiform left posterior basilar artery with recommendations to perform CTA of the head and neck, she was given hydralazine IV push in the ED which lowered her blood pressure to systolic of 180. EKG showed A-fib. chest x-ray was showing mild cardiomegaly without any acute cardiopulmonary process. Patient then developed left-sided facial droop as well as left upper and lower extremity weakness. Neurology also consulted. MRI brain pending. CTA head and neck also showed a small rounded focal outpouching of contrast seen along the left wall of aortic arch extending into soft plaque suggesting a penetrating ulcer, no dissection flap is seen. Cardiology and vascular surgery also consulted. MRI brain shows multiple relatively small areas of restricted diffusion in the right cerebral hemisphere consistent with acute/subacute infarcts. Scattered remote microhemorrhages. Now started on anticoagulation does have decreased oral intake, sodium dropping. Nephrology consulted. Required hypertonic saline in medical ICU. Echocardiogram shows preserved LV systolic function, 3+ tricuspid regurgitation, mild to moderate mitral regurgitation. Sodium now improving. Subjective: Patient seen and examined at bedside. No acute events overnight. Complaining of rash on the back. Pertinent positives and negatives as discussed above, a complete review of systems was performed and all other systems are negative. Vitals Signs Reviewed. General: Nontoxic, no distress, appears at stated age Derm: Warm, dry, maculopapular rash on upper back Head: Atraumatic, normocephalic, symmetric Eyes: EOMI, no lid lag, anicteric sclera Mouth: No lip lesion, mucus membranes moist Cardiovascular: S1S2 reg, no murmur Lungs: CTA bilateral, no rhonchi, no rales, no accessory muscle use Abdominal: Soft, nontender to palpation, no guarding, no appreciable organomegaly Ext: No gross muscle atrophy, no edema, no contractures Neuro: Left-sided facial droop, strength 4/5 on left upper and lower extremity. Psych: Alert, oriented, appropriate affect Data Reviewed Today: Pertinent Labs: Sodium 128, potassium 3.8, magnesium 1.5, creatinine 0.55 Imaging: No new imaging Assessment and Plan: Active: Acute encephalopathy, metabolic, resolved Acute CVA, with left-sided deficits Hypertensive emergency, blood pressure improved Persistent atrial fibrillation Hyponatremia, likely hypovolemic, improving Hypomagnesemia -Neurology following, continue on Xarelto 20, continue on aspirin 81, atorvastatin 20, Monitor for bleeding. - Blood pressure improved. 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 Dermatitis, likely secondary to xerosis -Topical CeraVe as well as topical hydrocortisone as needed for itching Chronic: Rheumatoid arthritis - on Onarga as needed for pain, monitor for sedation Graves' disease DVT ppx: xarelto Code status: Full code Anticipated discharge place: Inpatient rehab Anticipated discharge time: Likely tomorrow Objective - Vital Signs Vital signs: Vital Signs Temp 97.4 F L 01/17/24 11:56 Pulse 86 01/17/24 11:56 Resp 18 01/17/24 11:56 BP 152/90 01/17/24 11:56 Pulse Ox 94 L 01/17/24 11:56 FiO2 Intake & Output 01/16/24 01/17/24 01/17/24 18:59 06:59 18:59 Intake Total 180 118 110 Output Total 326 428 0958 Balance -220 -037 -7024 Intake: Oral 180 118 110 Output: Urine 804 762 1002 Straight 1400 Other: Voiding Method Indwelling Catheter Indwelling Catheter Indwelling Catheter - Labs CBC & Chem 7: 01/15/24 06:03 01/17/24 08:32 Labs: Abnormal Lab Results - Last 24 Hours (Table) 01/17/24 Range/Units 08:32 Sodium 128 L (137-145) mmol/L Carbon Dioxide 20 L (22-30) mmol/L Glucose 162 H (74-99) mg/dL Magnesium 1.5 L (1.6-2.3) mg/dL
[2024-01-17 14:03] VITALS: BMI 25.7
--- NOTE | 2024-01-17 14:56 | P.PN ---
Subjective Progress Note Date: 01/17/24 This is a 73-year-old female patient with a known history of Graves' disease, rheumatoid arthritis, fibromyalgia, hypertension, right CVA with left-sided weakness who presented here to the emergency room back on 01/10/2024 with altered mental status and a bad headache. CT scan of the brain revealed fusiform prominence of the basilar artery and possibly left posterior communicating artery. Chronic mild periventricular white matter ischemic changes. Acute process not otherwise evident. MRI reveals multiple relatively small areas of restricted diffusion in the right cerebral hemisphere consistent with subacute/acute infarct. No mass effect. He has been having issues with hyponatremia. Last evening her sodium dropped to 114 and she was needing 3% normal saline per nephrology and was transferred to the intensive care unit for the same. He is seen today in consultation in the ICU. She is currently awake and alert in no acute distress. She is maintaining O2 saturations in the 90s on room air. Her 3% normal saline has been off since 730 this morning. Most recent sodium 123. She remains stable and on room air. Afebrile. Hemodynamically stable. Chest x-ray revealed no acute pulmonary process. Count 8.9. Hemoglobin 12.1. Sodium 123. Potassium 3.1. Bicarb 26. BUN 10. Creatinine 0.67. Glucose 88. Progress note dated January 15, 2024. The patient is seen today in room 357. Today sodium is 127. She is on room air. She is getting saline at 75 cc an hour. The patient was seen in consultation yesterday. The patient was transferred to the intensive care unit, initially, because she was profoundly hyponatremic, and required 3% saline, which can only be run in the intensive care unit. Currently, she is very stable, without complaints. Current labs include a white count 8.8, hemoglobin 12.8, hematocrit 39.2, and a platelet count of 146,000. Sodium 127, potassium 3 .4, chlorides 98, CO2 24, BUN 9, creatinine 0.54. Calcium is 8.2. Magnesium 1.9. On today's evaluation of 01/16/2024, the patient is being seen for a follow-up. This patient is feeling well. The patient is feeling fatigued (is appropriate and the patient is not having any focal neurological deficits. Noted the patient presented to us with acute mental status change at this point attributed to hyponatremia related to thiazides. The patient currently is on normal saline which is running at 75 cc an hour and sodium levels up to 128, potassium is at 3.4, BUN is at 6 with a creatinine of 0.4. The patient is currently on room air oxygen with a pulse ox of 98%. Denies having any significant respiratory distress. CAT scan of the brain was also done and the patient was found to have the possibility of a infarct within the right cerebral hemisphere and MRI of the brain from 01/11/2024 showed multiple areas of restricted diffusion in the right cerebral hemisphere consistent with an acute/subacute infarct. She remains on aspirin 81 mg p.o. daily. She remains on methimazole regarding her underlying hyperthyroidism. The patient also on anticoagulation with Xarelto. She remains in atrial fibrillation for now. Thiazide diuretics has been discontinued. The blood pressure is slightly elevated and the patient is currently on a combination of losartan and hydralazine and amlodipine. On today's evaluation of 01/17/2024, patient is being seen for a follow-up. The patient is awake and alert and communicating. Sodium level is gradually improving and currently is up to 128. BUN is at 10 with a creatinine of 0.55. The patient has no specific complaints at this point in time. Overall, she is feeling weak and tired. Otherwise, condition has been essentially stable. The plan is to discharge this patient to inpatient rehabilitation this would likely take place tomorrow. Rest of the comorbidities are all inactive and stable. The patient has no specific complaints at this point in time. No focal neurological deficits. Objective - Vital Signs Vital signs: Vital Signs Temp 98.2 F 01/17/24 07:45 Pulse 98 01/17/24 07:45 Resp 18 01/17/24 07:45 BP 161/92 01/17/24 07:45 Pulse Ox 93 L 01/17/24 07:45 FiO2 Intake & Output 01/16/24 01/17/24 01/17/24 18:59 06:59 18:59 Intake Total 180 118 110 Output Total 700 550 Balance -520 -432 110 Intake: Oral 180 118 110 Output: Urine 700 550 Other: Voiding Method Indwelling Catheter Indwelling Catheter Indwelling Catheter - Exam No acute distress, oriented 3. Room air saturation 95%. HEENT examination is grossly unremarkable. Mucous membranes are moist. No oral lesions. Neck supple. Full range of motion. No adenopathy thyromegaly or neck vein dist ention. Cardiovascular examination reveals irregular rhythm/normal rate. S1-S2 normal. No S3 or S4. No discernible murmur noted. Lungs reveal clear breath sounds. Breath sounds are equal bilaterally. No adventitious lung sounds including wheezes rhonchi or crackles. Abdomen soft bowel sounds are heard. No masses or tenderness. Extremities are intact. No cyanosis clubbing or edema. Skin is without rash or lesion. Neurologic examination reveals the patient to be confused at times. - Labs CBC & Chem 7: 01/15/24 06:03 01/17/24 08:32 Labs: Abnormal Lab Results - Last 24 Hours (Table) 01/17/24 Range/Units 08:32 Sodium 128 L (137-145) mmol/L Carbon Dioxide 20 L (22-30) mmol/L Glucose 162 H (74-99) mg/dL Magnesium 1.5 L (1.6-2.3) mg/dL Assessment and Plan Plan: Altered mental status secondary to hyponatremia, secondary to poor oral intake, and thiazide diuretics. Hyponatremia, improving and a sodium levels at 128 Acute/subacute CVA. This has been confirmed initially on MRI of the brain and subsequently on a CAT scan of the brain. The patient has chronic A-fib. The patient is currently on anticoagulation with Xarelto. Hypertensive emergency, recovered. Blood pressure is being controlled by combination of losartan, hydralazine and amlodipine Graves' disease. Patient is currently on methimazole Rheumatoid arthritis. Hypertension. Fibromyalgia. Plan: Sodium levels at 128, and the patient has no new onset neurological symptoms. Her condition is stable. C nephrology is on the case regarding the hyponatremia. Normal saline is to be discontinued Mental status is appropriate and the patient is currently on a combination of aspirin and Xarelto Continue methimazole CAT scan of the brain and MRI of the brain were noted Blood pressure management Will continue to follow The patient is a DO NOT RESUSCITATE patient.
[2024-01-17] MEDS: SERTRALINE 50 MG TAB PO SCH (21:17)
--- NOTE | 2024-01-18 09:49 | P.PN ---
Subjective Progress Note Date: 01/17/24 Patient was initially seen by Dr. José Luis Mott. Please refer to his note for details. Patient is a 73-year-old female with acute CVA over the right hemisphere. Patient has history of atrial fibrillation and was not on anticoagulation because of bleed. Patient started on Xarelto on this admission. Patient was seen for a follow-up. Patient is sitting comfortably in the recliner. Patient states that she feels "okay". Patient admits to having significant depression. She used to be on Zoloft, but has been discontinued. She said it did help in the past. Patient denies any headache. 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 She follows up with retina specialist who gives her some shots. Patient denies any numbness or tingling or focal weakness. Some of the workup during his hospital visit consisted of: CBC with differential is unremarkable TSH is 2.75 and free T4 is 1.27 Lipid panel: TG 82, chol 185, LDL [address] of the head is reported as chronic mild periventricular white matter ischemic changes. Acute process is not otherwise evident. fusiform prominence of basilar artery and possibly left posterior communicating artery. I personally reviewed the CT and there is no acute subacute ischemia. CTA head and neck is reported as Mild dolichoectasia of intracranial right vertebral artery, with lesser involvement suggested of the bsilar artery and proximal CONSTRUCTION COORDINATOR's. No intracranial larger vessel occlusion, signficiant stenosis or sizable aneurysme detected in the limits of CTA. UDS is unremarkable. MRI Brain is reported as multiple relatively small of resticted diffused in the right cerebral hemipshere, consistent with acute/subacute infarcts. No significant mass effect. No midline shift or brain herniation. Background moderate generalized brain atrophy and chronic microvascular ischemic changes. Scatter remote mirohemorrhages. I personally reviewed MRI and agree there is acute stroke over the right hemisphere 2D echo: it is reported as severe bilateral enlargement. Preserved left ventricle systolic function. 2+ tricuspid regurgitation mild to moderate mitral regurgitation. Repeat CT head is reported as markedly limited study secondary to involuntary patient motion. Cannot exclude large area of infarction involving the right cerebral hemisphere. I personally reviewed and agree there is significant motion artifact and it is hard to appreciate ischemia but appear on right as seen on MRI. Objective - Vital Signs Vital signs: Vital Signs Temp 97.6 F 01/17/24 16:57 Pulse 71 01/17/24 16:57 Resp 16 01/17/24 16:57 BP 162/95 01/17/24 16:57 Pulse Ox 97 01/17/24 16:57 FiO2 Intake & Output 01/16/24 01/17/24 01/17/24 18:59 06:59 18:59 Intake Total 180 118 840 Output Total 942 765 3269 Balance -520 -432 -560 Weight 61.8 kg Intake: IV 10 Invasive Line 5 10 Oral 180 118 830 Output: Urine 592 309 5606 Straight 1400 Other: Voiding Method Indwelling Catheter Indwelling Catheter Indwelling Catheter # Voids 1 - Exam Patient is alert and awake. She does have some flat affect. Patient knows it is December 2023 and that she is in [facility] imported on [place]. Speech and language functions are normal. Pupils are equal, round reactive to light, visual herrera are full. Face is symmetric. Tongue protrudes to midline. On muscle strength testing, the deltoid is 4+, database administration project manager is equal bilaterally. Triceps 4+/5. Patient does have arthritis in the right shoulder. No ataxia for [id number] testing. Sensory to touch is equal. - Labs CBC & Chem 7: 01/15/24 06:03 01/17/24 15:29 Labs: Abnormal Lab Results - Last 24 Hours (Table) 01/17/24 01/17/24 Range/Units 08:32 15:29 Sodium 128 L 129 L (137-145) mmol/L Carbon Dioxide 20 L (22-30) mmol/L Glucose 162 H (74-99) mg/dL Magnesium 1.5 L (1.6-2.3) mg/dL Assessment and Plan Assessment: this is a 73-year-old woman with history of A. fib who is on aspirin and not anticoagulation due to history of bleed who presents because of confusion and on presentation her blood pressure was 220s over 140s.seems that she also developed a left lower facial weakness yesterday. On examination she has a in addition to the facial weakness has a mild dysarthria and the left upper extremity weakness. Acute to subacute ischemic stroke over the right hemisphere (multiple scattered that small in size). Appears embolic and likely cardioemboli (hx of A-fib and not on anticoagulation). Presents with left facial droop with left upper extremity weakness and dysarthria. No IV thrombolytic due to outside the window. Encephalopathy due to hyponatremia (118) and medication use ([place])---mentation drastically better today. Hyponatremia is improving Hypertensive encephalopathy---improved. Hypertensive emergency 2D echo: it is reported as severe bilateral enlargement. Preserved left ventricle systolic function. 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 fib not on any anticoagulation due to history of vaginal bleeding History of rheumatoid arthritis History of osteoarthritis underlying history of hypertension Plan: Plavix was discontinued since Xarelto was started 01/13/2022 for for her hx of A- fib. She is resumed on her home dose of ASA 81mg daily. Patient is on on Lipitor 20 mg daily at bedtime if she develops any the myalgia then we'll discontinue the medication. Statin was started for secondary stroke prophylaxis Continue neuro checks Cardiac monitoring PT, OT and VENEER GLUE SPREADER are consulted. Inpatient rehab consulted. cardiothoracic is consulted for incidental finding on CT angiography of nonpenetrating aortic wall ulcer. Cardiology is consulted We'll defer the rest of the medical management to primary and other specialist. Patient complains of significant depression. Previously sertraline helped. We will start her on Zoloft 50 mg daily. For DVT prophyalxis. is on Xarelto Upon discharge, patient needs to follow-up with neurologist as outpatient within 1-2 weeks. Neurologically clear.
[2024-01-18 10:20] LABS: African American GFR (CKD) >90 (>60 ml/min/1.73 sqM); Anion Gap 11 mmol/L; Blood Urea Nitrogen 16 mg/dL (7-17); Carbon Dioxide 20 mmol/L (22-30); Chloride 97 mmol/L (98-107); Glucose 134 mg/dL (74-99); Magnesium 1.8 mg/dL (1.6-2.3); Non-African American GFR(CKD) >90 (>60 ml/min/1.73 sqM); Sodium 128 mmol/L (137-145)
--- NOTE | 2024-01-18 11:04 | P.PN ---
Subjective patient is seen for follow-up for hyponatremia. Sodium has improved to 128. IV fluids discontinued yesterday. Overall feeling better. Potassium was 4.0 Objective - Vital Signs Vital signs: Vital Signs Temp 98 F 01/18/24 09:10 Pulse 85 01/18/24 09:10 Resp 18 01/18/24 09:10 BP 157/88 01/18/24 09:10 Pulse Ox 98 01/18/24 09:10 FiO2 Intake & Output 01/17/24 01/18/24 01/18/24 18:59 06:59 18:59 Intake Total 950 10 110 Output Total 1400 Balance -450 10 110 Weight 61.8 kg Intake: IV 10 10 Invasive Line 5 10 10 Oral 940 110 Output: Urine 1400 Straight 1400 Other: Voiding Method Indwelling Catheter Toilet # Voids 1 1 1 # Bowel Movements 1 - Exam patient is awake, comfortable, no acute distress Examination of the heart S1 and S2 Examination of the lungs decreased breath sounds at the bases Abdomen is soft nontender Examination lower extremities shows no significant edema LEDGER CLERK exam grossly intact - Labs CBC & Chem 7: 01/15/24 06:03 01/18/24 08:41 Labs: Abnormal Lab Results - Last 24 Hours (Table) 01/17/24 01/18/24 Range/Units 15:29 08:41 Sodium 129 L 128 L (137-145) mmol/L Chloride 97 L (98-107) mmol/L Carbon Dioxide 20 L (22-30) mmol/L Glucose 134 H (74-99) mg/dL Assessment and Plan Assessment: 1. Hyponatremia. Etiology is poor solute intake and use of thiazide diuretic. Sodium level was 134 on admission, dropped to 114, improved 128. normal saline discontinued yesterday. No urinary retention. TSH normal this admission. 2. Acute/subacute CVA. Neurology following. 3. Hypertensive emergency. 4. Hypokalemia from poor intake, diuretic use and hypomagnesemia. 5. Hypomagnesemia from poor intake and diuretic use. 6. Graves' disease maintained on methimazole. Plan: patient can be discharged from nephrology standpoint. Samsca 1 prior to discharge as there is possibly an underlying component of SIADH.. Follow-up in the office in 1-2 weeks Repeat labs in 3-4 days post discharge. Maintained free water restriction post discharge.
--- NOTE | 2024-01-18 11:11 | P.DS ---
Providers Date of admission: 01/10/24 20:59 Expected date of discharge: 01/18/24 Attending physician: Diego Vargas MD Consults: 01/10/24 20:56 Consult Physician Urgent Consulting Provider: José Luis Mott Consult Reason/Comments: Altered mental status Do you want consulting provider notified?: Yes Consult Physician Urgent Consulting Provider: [facility] Consult Reason/Comments: Hypertensive emergency Do you want consulting provider notified?: Yes 01/11/24 06:51 Consult Physician Routine Consulting Provider: Emerson Barrera Consult Reason/Comments: incidental finding on CTA of non penetrating aortic wall ulcer Do you want consulting provider notified?: Yes 01/12/24 14:46 Consult Physician Routine Consulting Provider: Pernell Montlavo Consult Reason/Comments: inpatient rehab for stroke Do you want consulting provider notified?: Yes 01/13/24 10:41 Consult Physician Routine Consulting Provider: Nic Clarke Consult Reason/Comments: hyponatremia Do you want consulting provider notified?: Yes 01/13/24 23:43 Consult Physician Urgent Consulting Provider: Hiram Mott Consult Reason/Comments: ICU management Do you want consulting provider notified?: Already Contacted [facility] care physician: [facility] Course: 73-year-old female with hypertension, Graves' disease, persistent atrial fibrillation not on anticoagulation presenting with confusion and strokelike symptoms. Upon presentation to the ED she was found to have high blood pressure systolic 240/140 patient had a stroke workup in the ED CT scan of the brain showed no acute intracranial pathology however showed questionable fusiform left posterior basilar artery with recommendations to perform CTA of the head and neck. She was given hydralazine IV push in the ED which lowered her blood pressure to systolic of 180. EKG showed A-fib. chest x-ray was showing mild cardiomegaly without any acute cardiopulmonary process. Patient then developed left-sided facial droop as well as left upper and lower extremity weakness. Neurology also consulted. CTA head and neck also showed a small rounded focal outpouching of contrast seen along the left wall of aortic arch extending into soft plaque suggesting a penetrating ulcer, no dissection flap is seen. Cardiology and vascular surgery also consulted. MRI brain shows multiple relatively small areas of restricted diffusion in the right cerebral hemisphere consistent with acute/subacute infarcts. Scattered remote microhemorrhages. Now started on anticoagulation. She was noted to have severe hyponatremia thou ght to be related to decreased oral intake and HCTZ use. Nephrology consulted, required hypertonic saline in medical ICU, sodium now improved to 128 with fluid restriction. Echocardiogram shows preserved LV systolic function, 3+ tricuspid regurgitation, mild to moderate mitral regurgitation. 01/17 Patient was seen and examined. No acute events overnight. She reports arthritis pain in her rigth wrist due to RA. Plans for discharge to [facility] today. Discussed with Dr. Newberry, cleared for discharge, continue 1.5L fluid restriction for hypoNa. Continue ASA, Lipitor and Xarelto. Follow up with Neurology within 1 week of discharge. Continue Amlodipine, Hydralazine, Losartan, Metoprolol for BP control. Follow up with Cardiology within 1 week of discharge. Follow up with Dr. Barrera with regard to penetrating ulcer along with wall of the aortic arch. You will need a repeat CT scan in 6 months. Repeat BMP in 3 days with regard to your hypoNa, follow up with results with PCP. General: Nontoxic, no distress, appears at stated age Derm: Warm, dry Head: Atraumatic, normocephalic, symmetric Eyes: EOMI, no lid lag, anicteric sclera Mouth: No lip lesion, mucus membranes moist Cardiovascular: S1S2 reg, systolic murmur Lungs: CTA bilateral, no rhonchi, no rales, no accessory muscle use, supplemental oxygen Ext: No gross muscle atrophy, no edema, no contractures Neuro: no focal neuro deficits Psych: Alert, oriented, appropriate affect Discharge Diagnosis: Acute encephalopathy Acute CVA, with left-sided deficits Hypertensive emergency, blood pressure improved Persistent atrial fibrillation Hyponatremia, likely hypovolemic, improving Hypomagnesemia Right shoulder pain 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 Patient Condition at Discharge: Stable Plan - Discharge Summary Discharge Rx Participant: No New Discharge Prescriptions: New hydrALAZINE HCL [Apresoline] 25 mg PO TID tab Ibuprofen [Motrin] 400 mg PO Q6HR PRN tab PRN Reason: Pain Acetaminophen Tab [Tylenol] 650 mg PO Q6HR PRN tab PRN Reason: Fever And/ Or Pain Hydrocortisone Cream [Hydrocortisone 1% Cream] 1 applic TOPICAL QID PRN each PRN Reason: Hemorrhoids Atorvastatin [Lipitor] 20 mg PO HS tab HYDROcodone/APAP 5-325MG [[place] 5-325] 1 each PO Q6HR PRN #12 tab PRN Reason: Pain amLODIPine [Norvasc] 10 mg PO DAILY tab Rivaroxaban [Xarelto] 20 mg PO W/SUPPER tab Sertraline [Zoloft] 50 mg PO HS tab Continue methIMAzole [Tapazole] 5 mg PO DAILY Metoprolol Tartrate [Lopressor] 100 mg PO BID Aspirin EC [Ecotrin Low Dose] 81 mg PO DAILY Losartan Potassium [Cozaar] 100 mg PO DAILY diphenhydrAMINE [Benadryl] 25 mg PO Q6H PRN #0 PRN Reason: Allergic Reaction Discontinued Back And Body (Sivakumar) Caffeine 32.5 Mg + Aspirin 500mg 2 tab PO Q6H PRN PRN Reason: Pain hydroCHLOROthiazide [Hydrodiuril] 12.5 mg PO DAILY Discharge Medication List Aspirin EC [Ecotrin Low Dose] 81 mg PO DAILY 01/10/24 [History] Losartan Potassium [Cozaar] 100 mg PO DAILY 01/10/24 [History] Metoprolol Tartrate [Lopressor] 100 mg PO BID 01/10/24 [History] methIMAzole [Tapazole] 5 mg PO DAILY 01/10/24 [History] Acetaminophen Tab [Tylenol] 650 mg PO Q6HR PRN tab 01/18/24 [Rx] Atorvastatin [Lipitor] 20 mg PO HS tab 01/18/24 [Rx] HYDROcodone/APAP 5-325MG [[place] 5-325] 1 each PO Q6HR PRN #12 tab 01/18/24 [Rx] Hydrocortisone Cream [Hydrocortisone 1% Cream] 1 applic TOPICAL QID PRN each 01/18/24 [Rx] Ibuprofen [Motrin] 400 mg PO Q6HR PRN tab 01/18/24 [Rx] Rivaroxaban [Xarelto] 20 mg PO W/SUPPER tab 01/18/24 [Rx] Sertraline [Zoloft] 50 mg PO HS tab 01/18/24 [Rx] amLODIPine [Norvasc] 10 mg PO DAILY tab 01/18/24 [Rx] diphenhydrAMINE [Benadryl] 25 mg PO Q6H PRN #0 01/18/24 [Rx] hydrALAZINE HCL [Apresoline] 25 mg PO TID tab 01/18/24 [Rx] Follow up Appointment(s)/Referral(s): Jodie Gallegos MD [STAFF PHYSICIAN] - 1 Week Emerson Barrera MD [STAFF PHYSICIAN] - 1 Week Russell Bentley DO [STAFF PHYSICIAN] - 1 Week Wili Valenzuela DO [Primary Care Provider] - 1-2 days Ambulatory/Diagnostic Orders: Basic Metabolic Panel [LAB.AMB] Time Frame: 3 Days, Location: None Selected Activity/Diet/Wound Care/Special Instructions: 1.5L fluid restriction. Discharge/Stand Alone Forms: Who Do I Call?, Personal Graphics Production Specialist Discharge Disposition: TRANSFER TO SNF/ECF
--- NOTE | 2024-01-18 12:43 | P.PN ---
Subjective HISTORY OF PRESENT ILLNESS: This is a 73-year-old female with past medical history of persistent atrial fibrillation, Graves' disease, hypertension. We have been asked to evaluate the patient for hypertensive emergency. Patient presented to the hospital with a blood pressure of 229/142. She is status post hydralazine 20 mg IV push followed by 10 mg IV push. Home medications have not been resumed and blood pressure is currently 137/85. Family state that patient was not acting right at home and had left sided weakness that is improved today. Patient denies feeling abnormal and denies weakness. Patient was on Eliquis in the past but stopped due to significant bruising. She was last seen in the office with Dr. Ceballos in 2019. Blood pres sure readings are fluctuating. Dr. Mccann discussed in detail with the patient and son the need for anticoagulation to prevent further TIA/CVA and discussed option of watchman procedure in the future. Patient is also seeing a retinal specialist and has had retinal bleedng with treatments which is a concern voiced by patient's son but should not interfere with anticoagulation. EKG atrial fibrillation at 82 bpm Chest x-ray: No acute process. Mild cardiomegaly. CT of the brain fusiform prominence of the basilar artery and possible left posterior communicating artery. Chronic mild periventricular white matter ischemic changes. CT angiogram of the head and neck reveals no evidence of stenosis, dissection, pseudoaneurysm in the bilateral cervical carotid or vertebral arteries. Soft plaque of the aorta with mild involve the proximal left vertebral artery resulting in mild narrowing. Small rounded focal outpouching of contrast in the left wall of the aortic arch extending into soft plaque suggesting a penetrating ulcer.. Mild dolichoectasia of the intracranial right vertebral artery with lesser involvement suggestive the basilar artery and proximal transplanter orchid. No intracranial large vessel occlusion, stenosis, sizable aneurysm detected. CBC, INR unremarkable. Sodium 134, potassium 3.9, BUN 20 creatinine 0.75. Glucose 168. AST 38, troponin negative x 1. TSH 2.75. Drug screen negative. Urinalysis negative for infection. Home cardiac medications: Aspirin 81 mg daily, hydrochlorothiazide 12.5 mg daily, losartan 100 mg daily, Lopressor 100 mg twice daily. 01/14 Patient has been transferred out of the intensive care unit and seen on the cardiac stepdown unit today. She is complaining of arthritic pain today. No chest pain. No palpitations. She has had an MRI consistent with right-sided stroke. Patient has not been on anticoagulation in the past due to vaginal bleeding and this was discussed in detail with her and she has been started on Xarelto 20 mg with supper starting yesterday evening. Echocardiogram had revealed preserved LV systolic function. Severe biatrial enlargement. 3+ tricuspid regurgitation and mild to moderate mitral regurgitation. Blood pressure 120/74-167/90, heart rate in the 70s to 90s, pulse ox 97% on room air. Repeat blood work reveals hemoglobin 12.8. Sodium 127, potassium 3.4 and creatinine 0.54. 01/16/2024 Patient examined this morning at the bedside. Patient currently denies chest pain or pressure. She denies shortness of breath. She states that she feels generalized achiness today. Remote telemetry reveals atrial fibrillation with controlled ventricular rate. She is anticoagulated with Xarelto. Sodium remains low this morning at 128 although improved from admission. Potassium low at 3.4. 01/17/2024 Patient examined this morning. Patient is sitting up in the chair. Patient currently denies chest pain or pressure. She denies shortness of breath. The patient does have a rash on her back this morning. Remote telemetry reveals atrial fibrillation with controlled ventricular rate. Sodium level today 128, unchanged from yesterday. Magnesium is low today at 1.5. 01/18/2024 Patient examined this morning. She is sitting up in the chair and complains of being cold. She denies any chest pain or pressure. She denies any shortness of breath. Blood pressure slightly on the higher side today. PHYSICAL EXAM: VITAL SIGNS: Reviewed. GENERAL: Well-developed in no acute distress. NECK: Supple. No JVD or thyromegaly LUNGS: Respirations even and unlabored. Lungs essentially clear to auscultation bilaterally. HEART: Irregular rate and rhythm. S1 and S2 heard. Systolic murmur noted. EXTREMITIES: Normal range of motion. No clubbing or cyanosis. Peripheral pulses intact. No lower extremity edema ASSESSMENT: Hyponatremia Metabolic encephalopathy secondary to hyponatremia Acute/subacute CVA Hypertensive emergency Graves' disease Permanent atrial fibrillation, pt reports AF for at least 4 years in duration History of vaginal bleeding Hypokalemia Hypomagnesemia Rash, noted on patients back, etiology unclear PLAN: Continue current cardiac medications Continue anticoagulation with Xarelto No changes to antihypertensive regimen at this time. Patient instructed to keep a log of her blood pressures at home postdischarge Patient is currently stable for discharge from a cardiac standpoint Nurse practitioner note has been reviewed by physician. Signing provider agrees with the documented findings, assessment, and plan of care documented by FLIGHT ATTENDANT/INFLIGHT SUPERVISOR as a scribe. Objective - Vital Signs Vital signs: Vital Signs Temp 98 F 01/18/24 09:10 Pulse 85 01/18/24 09:10 Resp 18 01/18/24 09:10 BP 157/88 01/18/24 09:10 Pulse Ox 98 01/18/24 09:10 FiO2 Intake & Output 01/17/24 01/18/24 01/18/24 18:59 06:59 18:59 Intake Total 950 10 110 Output Total 1400 Balance -450 10 110 Weight 61.8 kg Intake: IV 10 10 Invasive Line 5 10 10 Oral 940 110 Output: Urine 1400 Straight 1400 Other: Voiding Method Indwelling Catheter Toilet # Voids 1 1 1 # Bowel Movements 1 - Labs CBC & Chem 7: 01/15/24 06:03 01/18/24 08:41 Labs: Abnormal Lab Results - Last 24 Hours (Table) 01/17/24 01/18/24 Range/Units 15:29 08:41 Sodium 129 L 128 L (137-145) mmol/L Chloride 97 L (98-107) mmol/L Carbon Dioxide 20 L (22-30) mmol/L Glucose 134 H (74-99) mg/dL
[2024-01-18] MEDS: TOLVAPTAN 15 MG TABLET PO ONE (12:46)
--- NOTE | 2024-01-18 14:33 | P.PN ---
Subjective Progress Note Date: 01/18/24 This is a 73-year-old female patient with a known history of Graves' disease, rheumatoid arthritis, fibromyalgia, hypertension, right CVA with left-sided weakness who presented here to the emergency room back on 01/10/2024 with altered mental status and a bad headache. CT scan of the brain revealed fusiform prominence of the basilar artery and possibly left posterior communicating artery. Chronic mild periventricular white matter ischemic changes. Acute process not otherwise evident. MRI reveals multiple relatively small areas of restricted diffusion in the right cerebral hemisphere consistent with subacute/acute infarct. No mass effect. He has been having issues with hyponatremia. Last evening her sodium dropped to 114 and she was needing 3% normal saline per nephrology and was transferred to the intensive care unit for the same. He is seen today in consultation in the ICU. She is currently awake and alert in no acute distress. She is maintaining O2 saturations in the 90s on room air. Her 3% normal saline has been off since 730 this morning. Most recent sodium 123. She remains stable and on room air. Afebrile. Hemodynamically stable. Chest x-ray revealed no acute pulmonary process. Count 8.9. Hemoglobin 12.1. Sodium 123. Potassium 3.1. Bicarb 26. BUN 10. Creatinine 0.67. Glucose 88. Progress note dated January 15, 2024. The patient is seen today in room 357. Today sodium is 127. She is on room air. She is getting saline at 75 cc an hour. The patient was seen in consultation yesterday. The patient was transferred to the intensive care unit, initially, because she was profoundly hyponatremic, and required 3% saline, which can only be run in the intensive care unit. Currently, she is very stable, without complaints. Current labs include a white count 8.8, hemoglobin 12.8, hematocrit 39.2, and a platelet count of 146,000. Sodium 127, potassium 3 .4, chlorides 98, CO2 24, BUN 9, creatinine 0.54. Calcium is 8.2. Magnesium 1.9. On today's evaluation of 01/16/2024, the patient is being seen for a follow-up. This patient is feeling well. The patient is feeling fatigued (is appropriate and the patient is not having any focal neurological deficits. Noted the patient presented to us with acute mental status change at this point attributed to hyponatremia related to thiazides. The patient currently is on normal saline which is running at 75 cc an hour and sodium levels up to 128, potassium is at 3.4, BUN is at 6 with a creatinine of 0.4. The patient is currently on room air oxygen with a pulse ox of 98%. Denies having any significant respiratory distress. CAT scan of the brain was also done and the patient was found to have the possibility of a infarct within the right cerebral hemisphere and MRI of the brain from 01/11/2024 showed multiple areas of restricted diffusion in the right cerebral hemisphere consistent with an acute/subacute infarct. She remains on aspirin 81 mg p.o. daily. She remains on methimazole regarding her underlying hyperthyroidism. The patient also on anticoagulation with Xarelto. She remains in atrial fibrillation for now. Thiazide diuretics has been discontinued. The blood pressure is slightly elevated and the patient is currently on a combination of losartan and hydralazine and amlodipine. On today's evaluation of 01/17/2024, patient is being seen for a follow-up. The patient is awake and alert and communicating. Sodium level is gradually improving and currently is up to 128. BUN is at 10 with a creatinine of 0.55. The patient has no specific complaints at this point in time. Overall, she is feeling weak and tired. Otherwise, condition has been essentially stable. The plan is to discharge this patient to inpatient rehabilitation this would likely take place tomorrow. Rest of the comorbidities are all inactive and stable. The patient has no specific complaints at this point in time. No focal neurological deficits. On today's evaluation of 01/18/2024, the patient is more alert and awake compared to yesterday. Sodium level is currently up to 129. The patient is doing well. No specific complaints. Rest of the electrolytes are stable and the BUN is 16 with a creatinine of 0.6. The magnesium level is at 1.8. No respiratory difficulties. No new onset neurological deficit at this point in time. The patient remains on anticoagulation and she is currently on Xarelto. Objective - Vital Signs Vital signs: Vital Signs Temp 98 F 01/18/24 09:10 Pulse 85 01/18/24 09:10 Resp 18 01/18/24 09:10 BP 157/88 01/18/24 09:10 Pulse Ox 98 01/18/24 09:10 FiO2 Intake & Output 04/30/24 05/01/24 05/01/24 18:59 06:59 18:59 Intake Total 950 10 110 Output Total 1400 Balance -450 10 110 Weight 61.8 kg Intake: IV 10 10 Invasive Line 5 10 10 Oral 940 110 Output: Urine 1400 Straight 1400 Other: Voiding Method Indwelling Catheter Toilet # Voids 1 1 1 # Bowel Movements 1 - Exam No acute distress, oriented 3. Room air saturation 95%. HEENT examination is grossly unremarkable. Mucous membranes are moist. No oral lesions. Neck supple. Full range of motion. No adenopathy thyromegaly or neck vein distention. Cardiovascular examination reveals irregular rhythm/normal rate. S1-S2 normal. No S3 or S4. No discernible murmur noted. Lungs reveal clear breath sounds. Breath sounds are equal bilaterally. No adventitious lung sounds including wheezes rhonchi or crackles. Abdomen soft bowel sounds are heard. No masses or tenderness. Extremities are intact. No cyanosis clubbing or edema. Skin is without rash or lesion. Neurologic examination reveals the patient to be confused at times. - Labs CBC & Chem 7: 01/15/24 06:03 01/18/24 08:41 Labs: Abnormal Lab Results - Last 24 Hours (Table) 01/17/24 01/17/24 01/18/24 Range/Units 08:32 15:29 08:41 Sodium 128 L 129 L 128 L (137-145) mmol/L Chloride 97 L (98-107) mmol/L Carbon Dioxide 20 L 20 L (22-30) mmol/L Glucose 162 H 134 H (74-99) mg/dL Magnesium 1.5 L (1.6-2.3) mg/dL Assessment and Plan Plan: Altered mental status secondary to hyponatremia, secondary to poor oral intake, and thiazide diuretics. Hyponatremia, improving and a sodium levels at 128 Acute/subacute CVA. This has been confirmed initially on MRI of the brain and subsequently on a CAT scan of the brain. The patient has chronic A-fib. The patient is currently on anticoagulation with Xarelto. Hypertensive emergency, recovered. Blood pressure is being controlled by combination of losartan, hydralazine and amlodipine Graves' disease. Patient is currently on methimazole Rheumatoid arthritis. Hypertension. Fibromyalgia. Plan: Sodium levels at 128/129, and the patient has no new onset neurological symptoms. Her condition is stable. Normal saline is to be discontinued Mental status is appropriate and the patient is currently on a combination of aspirin and Xarelto Continue methimazole CAT scan of the brain and MRI of the brain were noted Blood pressure management Will continue to follow The patient is a DO NOT RESUSCITATE patient. No active pulmonary or critical care issues on pulmonary services will sign off.
[2024-01-18] MEDS ORDERED: hydrALAZINE HCL 25 MG TAB PO SCH (16:00)
[2024-01-18] MEDS: hydrALAZINE HCL 25 MG TAB PO SCH (16:38)
[2024-01-19 09:23] VITALS: BP 143/87; PULSE 75; RESP 20; TEMP 98
[2024-01-19 09:37] LABS: African American GFR (CKD) >90 (>60 ml/min/1.73 sqM); Anion Gap 11 mmol/L; Blood Urea Nitrogen 16 mg/dL (7-17); Carbon Dioxide 24 mmol/L (22-30); Chloride 100 mmol/L (98-107); Glucose 118 mg/dL (74-99); Non-African American GFR(CKD) 89 (>60 ml/min/1.73 sqM); Potassium 4.1 mmol/L (3.5-5.1); Sodium 135 mmol/L (137-145)
--- NOTE | 2024-01-19 10:15 | P.PN ---
Subjective Patient is seen in follow-up for hyponatremia. Sodium level improved. Sitting up in chair. Denies chest pain or shortness of breath. Oral intake fair. No vomiting or diarrhea. Vital signs are stable. General: No acute distress. HEENT: Head exam is unremarkable. LUNGS: No audible rhonchi or wheezes. HEART: Rate and Rhythm are regular. ABDOMEN: Nontender. EXTREMITITES: No edema. Objective - Vital Signs Vital signs: Vital Signs Temp 98 F 01/19/24 08:46 Pulse 75 01/19/24 08:46 Resp 20 01/19/24 08:46 BP 143/87 01/19/24 08:46 Pulse Ox 93 L 01/19/24 08:46 FiO2 Intake & Output 01/18/24 01/19/24 01/19/24 18:59 06:59 18:59 Intake Total 1550 20 240 Output Total 200 Balance 1350 20 240 Intake: IV 20 Invasive Line 5 20 Oral 1550 240 Output: Urine 200 Other: Voiding Method Toilet Toilet # Voids 1 1 - Labs CBC & Chem 7: 01/15/24 06:03 01/19/24 08:47 Labs: Abnormal Lab Results - Last 24 Hours (Table) 01/18/24 01/19/24 Range/Units 08:41 08:47 Sodium 128 L 135 L (137-145) mmol/L Chloride 97 L (98-107) mmol/L Carbon Dioxide 20 L (22-30) mmol/L Glucose 134 H 118 H (74-99) mg/dL Assessment and Plan Plan: Assessment: 1. Hyponatremia. Etiology is poor solute intake and use of thiazide diuretic. Improved. Status post [facility] this admission. TSH normal this admission. 2. Acute/subacute CVA. Neurology following. 3. Hypertensive emergency. Improved. 4. Hypokalemia from poor intake, diuretic use and hypomagnesemia. Improved. 5. Hypomagnesemia from poor intake and diuretic use. Improved. 6. Graves' disease maintained on methimazole. Plan: Patient is being discharged. Repeat BMP and magnesium of 2 to 3 days postdischarge. Advised patient to maintain fluid restriction of less than 50 ounces per day and to increase protein intake. Follow-up outpatient 1 week postdischarge.
--- NOTE | 2024-01-19 10:23 | P.PN ---
Subjective Progress Note Date: 01/18/24 01/18/2024: Patient was seen for follow-up. Patient is sitting comfortably in the recliner. She appears more animated, more pleasant, smiling. Patient started on Zoloft 50 mg yesterday, offers no side effects. 01/17/2024: Patient was initially seen by Dr. José Luis Mott. Please refer to his note for details. Patient is a 73-year-old female with acute CVA over the right hemisphere. Patient has history of atrial fibrillation and was not on anticoagulation because of bleed. Patient started on Xarelto on this admission. Patient was seen for a follow-up. Patient is sitting comfortably in the recliner. Patient states that she feels "okay". Patient admits to having significant depression. She used to be on Zoloft, but has been discontinued. She said it did help in the past. Patient denies any headache. 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 She follows up with retina specialist who gives her some shots. Patient denies any numbness or tingling or focal weakness. Some of the workup during his hospital visit consisted of: CBC with differential is unremarkable TSH is 2.75 and free T4 is 1.27 Lipid panel: TG 82, chol 185, LDL [address] of the head is reported as chronic mild periventricular white matter ischemic changes. Acute process is not otherwise evident. fusiform prominence of basilar artery and possibly left posterior communicating artery. I personally reviewed the CT and there is no acute subacute ischemia. CTA head and neck is reported as Mild dolichoectasia of intracranial right vertebral artery, with lesser involvement suggested of the bsilar artery and proximal OPTICAL DESIGNER's. No intracranial larger vessel occlusion, signficiant stenosis or sizable aneurysme detected in the limits of CTA. UDS is unremarkable. MRI Brain is reported as multiple relatively small of resticted diffused in the right cerebral hemipshere, consistent with acute/subacute infarcts. No significant mass effect. No midline shift or brain herniation. Background moderate generalized brain atrophy and chronic microvascular ischemic changes. Scatter remote mirohemorrhages. I personally reviewed MRI and agree there is acute stroke over the right hemisphere 2D echo: it is reported as severe bilateral enlargement. Preserved left ventricle systolic function. 2+ tricuspid regurgitation mild to moderate mitral regurgitation. Repeat CT head is reported as markedly limited study secondary to involuntary patient motion. Cannot exclude large area of infarction involving the right cerebral hemisphere. I personally reviewed and agree there is significant motion artifact and it is hard to appreciate ischemia but appear on right as seen on MRI. Objective - Vital Signs Vital signs: Vital Signs Temp 98 F 01/19/24 08:46 Pulse 75 01/19/24 08:46 Resp 20 01/19/24 08:46 BP 143/87 01/19/24 08:46 Pulse Ox 93 L 01/19/24 08:46 FiO2 Intake & Output 01/18/24 01/19/24 01/19/24 18:59 06:59 18:59 Intake Total 1550 20 240 Output Total 200 Balance 1350 20 240 Intake: IV 20 Invasive Line 5 20 Oral 1550 240 Output: Urine 200 Other: Voiding Method Toilet Toilet # Voids 1 1 - Exam Patient is alert and awake. She appears more animated and very pleasant. Patient knows it is December 2023 and that she is in [facility] imported on [place]. Speech and language functions are normal. Pupils are equal, round reactive to light, visual herrera are full. Face is symmetric. Tongue protrudes to midline. On muscle strength testing, the deltoid is 4+, plumbing foreman is equal bilaterally. Triceps 4+/5. Patient does have arthritis in the right shoulder. No ataxia for [id number] testing. Sensory to touch is equal. - Labs CBC & Chem 7: 01/15/24 06:03 01/19/24 08:47 Labs: Abnormal Lab Results - Last 24 Hours (Table) 01/18/24 01/19/24 Range/Units 08:41 08:47 Sodium 128 L 135 L (137-145) mmol/L Chloride 97 L (98-107) mmol/L Carbon Dioxide 20 L (22-30) mmol/L Glucose 134 H 118 H (74-99) mg/dL Assessment and Plan Assessment: this is a 73-year-old woman with history of A. fib who is on aspirin and not anticoagulation due to history of bleed who presents because of confusion and on presentation her blood pressure was 220s over 140s.seems that she also developed a left lower facial weakness yesterday. On examination she has a in addition to the facial weakness has a mild dysarthria and the left upper extremity weakness. Acute to subacute ischemic stroke over the right hemisphere (multiple scattered that small in size). Appears embolic and likely cardioemboli (hx of A-fib and not on anticoagulation). Presents with left facial droop with left upper extremity weakness and dysarthria. No IV thrombolytic due to outside the window. Encephalopathy due to hyponatremia (118) and medication use (Baker)---mentation drastically better today. Hyponatremia is improving Hypertensive encephalopathy---improved. Hypertensive emergency 2D echo: it is reported as severe bilateral enlargement. Preserved left ventricle systolic function. 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 fib not on any anticoagulation due to history of vaginal bleeding History of rheumatoid arthritis History of osteoarthritis underlying history of hypertension History of depression. Plan: Plavix was discontinued since Xarelto was started 01/13/2022 for for her hx of A- fib. She is resumed on her home dose of ASA 81mg daily. Patient is on on Lipitor 20 mg daily at bedtime if she develops any the myalgia then we'll discontinue the medication. Statin was started for secondary stroke prophylaxis Continue neuro checks Cardiac monitoring PT, OT and FACTORY LAY OUT ENGINEER are consulted. Inpatient rehab consulted. cardiothoracic is consulted for incidental finding on CT angiography of nonpenetrating aortic wall ulcer. Cardiology is consulted We'll defer the rest of the medical management to primary and other specialist. Patient is tolerating Zoloft 50 mg daily very well. Further management of depression can be carried out by her primary physician. For DVT prophyalxis. is on Xarelto Upon discharge, patient needs to follow-up with neurologist as outpatient within 1-2 weeks. Neurologically clear.
--- NOTE | 2024-01-19 11:05 | P.PN ---
Subjective HISTORY OF PRESENT ILLNESS: This is a 73-year-old female with past medical history of persistent atrial fibrillation, Graves' disease, hypertension. We have been asked to evaluate the patient for hypertensive emergency. Patient presented to the hospital with a blood pressure of 229/142. She is status post hydralazine 20 mg IV push followed by 10 mg IV push. Home medications have not been resumed and blood pressure is currently 137/85. Family state that patient was not acting right at home and had left sided weakness that is improved today. Patient denies feeling abnormal and denies weakness. Patient was on Eliquis in the past but stopped due to significant bruising. She was last seen in the office with Dr. Ceballos in 2019. Blood pres sure readings are fluctuating. Dr. Mccann discussed in detail with the patient and son the need for anticoagulation to prevent further TIA/CVA and discussed option of watchman procedure in the future. Patient is also seeing a retinal specialist and has had retinal bleedng with treatments which is a concern voiced by patient's son but should not interfere with anticoagulation. EKG atrial fibrillation at 82 bpm Chest x-ray: No acute process. Mild cardiomegaly. CT of the brain fusiform prominence of the basilar artery and possible left posterior communicating artery. Chronic mild periventricular white matter ischemic changes. CT angiogram of the head and neck reveals no evidence of stenosis, dissection, pseudoaneurysm in the bilateral cervical carotid or vertebral arteries. Soft plaque of the aorta with mild involve the proximal left vertebral artery resulting in mild narrowing. Small rounded focal outpouching of contrast in the left wall of the aortic arch extending into soft plaque suggesting a penetrating ulcer.. Mild dolichoectasia of the intracranial right vertebral artery with lesser involvement suggestive the basilar artery and proximal process improvement manager. No intracranial large vessel occlusion, stenosis, sizable aneurysm detected. CBC, INR unremarkable. Sodium 134, potassium 3.9, BUN 20 creatinine 0.75. Glucose 168. AST 38, troponin negative x 1. TSH 2.75. Drug screen negative. Urinalysis negative for infection. Home cardiac medications: Aspirin 81 mg daily, hydrochlorothiazide 12.5 mg daily, losartan 100 mg daily, Lopressor 100 mg twice daily. 01/14 Patient has been transferred out of the intensive care unit and seen on the cardiac stepdown unit today. She is complaining of arthritic pain today. No chest pain. No palpitations. She has had an MRI consistent with right-sided stroke. Patient has not been on anticoagulation in the past due to vaginal bleeding and this was discussed in detail with her and she has been started on Xarelto 20 mg with supper starting yesterday evening. Echocardiogram had revealed preserved LV systolic function. Severe biatrial enlargement. 3+ tricuspid regurgitation and mild to moderate mitral regurgitation. Blood pressure 120/74-167/90, heart rate in the 70s to 90s, pulse ox 97% on room air. Repeat blood work reveals hemoglobin 12.8. Sodium 127, potassium 3.4 and creatinine 0.54. 01/16/2024 Patient examined this morning at the bedside. Patient currently denies chest pain or pressure. She denies shortness of breath. She states that she feels generalized achiness today. Remote telemetry reveals atrial fibrillation with controlled ventricular rate. She is anticoagulated with Xarelto. Sodium remains low this morning at 128 although improved from admission. Potassium low at 3.4. 01/17/2024 Patient examined this morning. Patient is sitting up in the chair. Patient currently denies chest pain or pressure. She denies shortness of breath. The patient does have a rash on her back this morning. Remote telemetry reveals atrial fibrillation with controlled ventricular rate. Sodium level today 128, unchanged from yesterday. Magnesium is low today at 1.5. 01/18/2024 Patient examined this morning. She is sitting up in the chair and complains of being cold. She denies any chest pain or pressure. She denies any shortness of breath. Blood pressure slightly on the higher side today. 01/19/2024 Patient examined this morning at the bedside. Patient denies chest pain or pressure. She denies shortness of breath. Vital signs are stable. Sodium has improved to 135 today. PHYSICAL EXAM: VITAL SIGNS: Reviewed. GENERAL: Well-developed in no acute distress. NECK: Supple. No JVD or thyromegaly LUNGS: Respirations even and unlabored. Lungs essentially clear to auscultation bilaterally. HEART: Irregular rate and rhythm. S1 and S2 heard. Systolic murmur noted. EXTREMITIES: Normal range of motion. No clubbing or cyanosis. Peripheral pulses intact. No lower extremity edema ASSESSMENT: Hyponatremia Metabolic encephalopathy secondary to hyponatremia Acute/subacute CVA Hypertensive emergency Graves' disease Permanent atrial fibrillation, pt reports AF for at least 4 years in duration History of vaginal bleeding Hypokalemia Hypomagnesemia Rash, noted on patients back, etiology unclear PLAN: Continue current cardiac medications Continue anticoagulation with Xarelto No changes to antihypertensive regimen at this time. Patient instructed to keep a log of her blood pressures at home postdischarge Patient is currently stable for discharge from a cardiac standpoint Nurse practitioner note has been reviewed by physician. Signing provider agrees with the documented findings, assessment, and plan of care documented by SURGICAL ASSISTANT as a scribe. Objective - Vital Signs Vital signs: Vital Signs Temp 98 F 01/19/24 08:46 Pulse 75 01/19/24 08:46 Resp 20 01/19/24 08:46 BP 143/87 01/19/24 08:46 Pulse Ox 93 L 01/19/24 08:46 FiO2 Intake & Output 01/18/24 01/19/24 01/19/24 18:59 06:59 18:59 Intake Total 1550 20 240 Output Total 200 Balance 1350 20 240 Intake: IV 20 Invasive Line 5 20 Oral 1550 240 Output: Urine 200 Other: Voiding Method Toilet Toilet # Voids 1 1 - Labs CBC & Chem 7: 01/15/24 06:03 01/19/24 08:47 Labs: Abnormal Lab Results - Last 24 Hours (Table) 01/19/24 Range/Units 08:47 Sodium 135 L (137-145) mmol/L Glucose 118 H (74-99) mg/dL
--- NOTE | 2024-01-19 11:21 | P.DS ---
Providers Date of admission: 01/10/24 20:59 Expected date of discharge: 01/19/24 Attending physician: Diego Vargas MD Consults: 01/10/24 20:56 Consult Physician Urgent Consulting Provider: oJsé Luis Mott Consult Reason/Comments: Altered mental status Do you want consulting provider notified?: Yes Consult Physician Urgent Consulting Provider: [facility] Consult Reason/Comments: Hypertensive emergency Do you want consulting provider notified?: Yes 01/11/24 06:51 Consult Physician Routine Consulting Provider: Emerson Barrera Consult Reason/Comments: incidental finding on CTA of non penetrating aortic wall ulcer Do you want consulting provider notified?: Yes 01/12/24 14:46 Consult Physician Routine Consulting Provider: Pernell Montalvo Consult Reason/Comments: inpatient rehab for stroke Do you want consulting provider notified?: Yes 01/13/24 10:41 Consult Physician Routine Consulting Provider: Nic Clarke Consult Reason/Comments: hyponatremia Do you want consulting provider notified?: Yes 01/13/24 23:43 Consult Physician Urgent Consulting Provider: Hiram Mott Consult Reason/Comments: ICU management Do you want consulting provider notified?: Already Contacted Primary care physician: [facility] Course: 73-year-old female with hypertension, Graves' disease, persistent atrial fibrillation not on anticoagulation presenting with confusion and strokelike symptoms. Upon presentation to the ED she was found to have high blood pressure systolic 240/140 patient had a stroke workup in the ED CT scan of the brain showed no acute intracranial pathology however showed questionable fusiform left posterior basilar artery with recommendations to perform CTA of the head and neck. She was given hydralazine IV push in the ED which lowered her blood pressure to systolic of 180. EKG showed A-fib. chest x-ray was showing mild cardiomegaly without any acute cardiopulmonary process. Patient then developed left-sided facial droop as well as left upper and lower extremity weakness. Neurology also consulted. CTA head and neck also showed a small rounded focal outpouching of contrast seen along the left wall of aortic arch extending into soft plaque suggesting a penetrating ulcer, no dissection flap is seen. Cardiology and vascular surgery also consulted. MRI brain shows multiple relatively small areas of restricted diffusion in the right cerebral hemisphere consistent with acute/subacute infarcts. Scattered remote microhemorrhages. Now started on anticoagulation. She was noted to have severe hyponatremia thou ght to be related to decreased oral intake and HCTZ use. Nephrology consulted, required hypertonic saline in medical ICU, sodium now improved to 128 with fluid restriction. Echocardiogram shows preserved LV systolic function, 3+ tricuspid regurgitation, mild to moderate mitral regurgitation. 01/17 Patient was seen and examined. No acute events overnight. She reports arthritis pain in her rigth wrist due to RA. Plans for discharge to [facility] today. 01/18 Patient was seen and examined. No acute events overnight. Na improved to 135 today. Discharge to [facility] held yesterday due to bed availability. Plans for discharge today. Discussed with Dr. Newberry, cleared for discharge, continue 1.5L fluid restriction for hypoNa. Continue ASA, Lipitor and Xarelto. Follow up with Neurology within 1 week of discharge. Continue Amlodipine, Hydralazine, Losartan, Metoprolol for BP control. Follow up with Cardiology within 1 week of discharge. Follow up with Dr. Barrera with regard to penetrating ulcer along with wall of the aortic arch. You will need a repeat CT scan in 6 months. Repeat BMP in 3 days with regard to your hypoNa, follow up with results with PCP. General: Nontoxic, no distress, appears at stated age Derm: Warm, dry Head: Atraumatic, normocephalic, symmetric Eyes: EOMI, no lid lag, anicteric sclera Mouth: No lip lesion, mucus membranes moist Cardiovascular: S1S2 reg, systolic murmur Lungs: CTA bilateral, no rhonchi, no rales, no accessory muscle use, supplemental oxygen Ext: No gross muscle atrophy, no edema, no contractures Neuro: no focal neuro deficits Psych: Alert, oriented, appropriate affect Discharge Diagnosis: Acute encephalopathy Acute CVA, with left-sided deficits Hypertensive emergency, blood pressure improved Persistent atrial fibrillation Hyponatremia, likely hypovolemic, improving Hypomagnesemia Right shoulder pain 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 Patient Condition at Discharge: Stable Plan - Discharge Summary Discharge Rx Participant: No New Discharge Prescriptions: New hydrALAZINE HCL [Apresoline] 25 mg PO TID tab Ibuprofen [Motrin] 400 mg PO Q6HR PRN tab PRN Reason: Pain Acetaminophen Tab [Tylenol] 650 mg PO Q6HR PRN tab PRN Reason: Fever And/ Or Pain Hydrocortisone Cream [Hydrocortisone 1% Cream] 1 applic TOPICAL QID PRN each PRN Reason: Hemorrhoids Atorvastatin [Lipitor] 20 mg PO HS tab HYDROcodone/APAP 5-325MG [[place] 5-325] 1 each PO Q6HR PRN #12 tab PRN Reason: Pain amLODIPine [Norvasc] 10 mg PO DAILY tab Rivaroxaban [Xarelto] 20 mg PO W/SUPPER tab Sertraline [Zoloft] 50 mg PO HS tab Continue methIMAzole [Tapazole] 5 mg PO DAILY Metoprolol Tartrate [Lopressor] 100 mg PO BID Aspirin EC [Ecotrin Low Dose] 81 mg PO DAILY Losartan Potassium [Cozaar] 100 mg PO DAILY diphenhydrAMINE [Benadryl] 25 mg PO Q6H PRN #0 PRN Reason: Allergic Reaction Discontinued Back And Body (Sivakumar) Caffeine 32.5 Mg + Aspirin 500mg 2 tab PO Q6H PRN PRN Reason: Pain hydroCHLOROthiazide [Hydrodiuril] 12.5 mg PO DAILY Discharge Medication List Aspirin EC [Ecotrin Low Dose] 81 mg PO DAILY 01/10/24 [History] Losartan Potassium [Cozaar] 100 mg PO DAILY 01/10/24 [History] Metoprolol Tartrate [Lopressor] 100 mg PO BID 01/10/24 [History] methIMAzole [Tapazole] 5 mg PO DAILY 01/10/24 [History] Acetaminophen Tab [Tylenol] 650 mg PO Q6HR PRN tab 01/18/24 [Rx] Atorvastatin [Lipitor] 20 mg PO HS tab 01/18/24 [Rx] HYDROcodone/APAP 5-325MG [[place] 5-325] 1 each PO Q6HR PRN #12 tab 01/18/24 [Rx] Hydrocortisone Cream [Hydrocortisone 1% Cream] 1 applic TOPICAL QID PRN each 01/18/24 [Rx] Ibuprofen [Motrin] 400 mg PO Q6HR PRN tab 01/18/24 [Rx] Rivaroxaban [Xarelto] 20 mg PO W/SUPPER tab 01/18/24 [Rx] Sertraline [Zoloft] 50 mg PO HS tab 01/18/24 [Rx] amLODIPine [Norvasc] 10 mg PO DAILY tab 01/18/24 [Rx] diphenhydrAMINE [Benadryl] 25 mg PO Q6H PRN #0 01/18/24 [Rx] hydrALAZINE HCL [Apresoline] 25 mg PO TID tab 01/18/24 [Rx] Follow up Appointment(s)/Referral(s): Jodie Gallegos MD [STAFF PHYSICIAN] - 1 Week Emerson Barrera MD [STAFF PHYSICIAN] - 1 Week Russell Bentley DO [STAFF PHYSICIAN] - 1 Week Wili Valenzuela DO [Primary Care Provider] - 1-2 days Ambulatory/Diagnostic Orders: Basic Metabolic Panel [LAB.AMB] Time Frame: 3 Days, Location: None Selected Activity/Diet/Wound Care/Special Instructions: 1.5L fluid restriction. Discharge/Stand Alone Forms: Who Do I Call?, Personal Ore Grader Discharge Disposition: TRANSFER TO SNF/ECF
== END 2024-01-19 09:55 | DRG 64 ==
LOC: EC 16:24 → 3SCARD 20:59 → 2SICU 01-14 00:10 → 3SCARD 01-14 22:11
PROVIDERS: ADMIT Internal Medicine; ATTEND Internal Medicine
DX: I63.111 Cerebral infarction due to embolism of right vertebral artery (principal); G92.8 Other toxic encephalopathy; I48.21 Permanent atrial fibrillation; I69.354 Hemiplegia and hemiparesis following cerebral infarction affecting left non-dominant side; I71.22 Aneurysm of the aortic arch, without rupture; M06.9 Rheumatoid arthritis, unspecified; G31.9 Degenerative disease of nervous system, unspecified; Z66 Do not resuscitate; I67.4 Hypertensive encephalopathy; E87.1 Hypo-osmolality and hyponatremia; I16.1 Hypertensive emergency; I11.9 Hypertensive heart disease without heart failure; E86.1 Hypovolemia; E05.00 Thyrotoxicosis with diffuse goiter without thyrotoxic crisis or storm; E03.9 Hypothyroidism, unspecified; F32.A Depression, unspecified; I08.1 Rheumatic disorders of both mitral and tricuspid valves; T50.2X5A Adverse effect of carbonic-anhydrase inhibitors, benzothiadiazides and other diuretics, initial encounter; T40.2X5A Adverse effect of other opioids, initial encounter; M79.7 Fibromyalgia; R29.810 Facial weakness; R47.1 Dysarthria and anarthria; E87.6 Hypokalemia; E83.42 Hypomagnesemia; M19.90 Unspecified osteoarthritis, unspecified site; L85.3 Xerosis cutis; H57.10 Ocular pain, unspecified eye; M25.511 Pain in right shoulder; H51.8 Other specified disorders of binocular movement; R29.700 NIHSS score 0; Z79.899 Other long term (current) drug therapy; Z82.49 Family history of ischemic heart disease and other diseases of the circulatory system; Z79.82 Long term (current) use of aspirin; Z88.1 Allergy status to other antibiotic agents; Z88.5 Allergy status to narcotic agent
CPT/HCPCS: 36415; 70450; 70496; 70498; 70551; 71046; 80048; 80053; 80061; 80306; 81001; 83735; 83930; 83935; 84295; 84300; 84439; 84443; 84484; 84560; 85025; 85610; 85730; 93005; 93306; 94760; 96361; 96372; 96374; 96375; 96376; 99291

== ENCOUNTER 2024-08-01 08:17 | Day surgery (SDC) | payer MEDICARE, OTHER ==
[~2024-08-01 08:17] MED LIST: TETRACAINE 0.5% OPHTH (PF) DROPS 4 ML BTL OP PRN
[2024-08-01] MEDS: CYCLOPENTOLATE 1% OPHTH SOLN 2 ML BTL OP PRN (08:52)
[2024-08-01] MEDS: PHENYLEPHRINE 2.5% OPHTH DRP 2ML OP PRN (08:55)
[2024-08-01 09:05] VITALS: TEMP 98.3
[2024-08-01] MEDS: LACTATED RINGERS 1,000 ML IV SCH (09:10)
[2024-08-01] MEDS: IV FLUID CONTINUATION 1,000 ML IV ONE (09:12)
[2024-08-01] MEDS ORDERED: MIDAZOLAM 2 MG/2 ML VIAL ONE (09:41)
[2024-08-01] MEDS ORDERED: HYDROCORTISONE SUCCINATE 100 MG/2 ML VIAL ONE (09:41)
[2024-08-01] MEDS ORDERED: fentaNYL (PF) 50 MCG/ML 2 ML AMP ONE (09:41)
[2024-08-01] MEDS: EPINEPHrine (PF) 0.3 ML in BALANCED SALT IRRIG SOLN COMB2 500 ML IRRIGATION ONE (09:55)
[2024-08-01] MEDS: BALANCED SALT IRRIG SOLN COMB2 15 ML IRRIG.SOLN INTRAOCULA ONE (09:56)
[2024-08-01] MEDS: GENTAMICIN 0.3% OPHTH DROPS 5 ML BTL OPHTHALMIC PRN (09:57)
[2024-08-01] MEDS: LIDOCAINE 1% (PF) 10MG/ML VIAL SQ ONE (09:57)
[2024-08-01] MEDS: DUOVISC KIT (GREEN BOX) INTRAOCULA ONE (09:57)
[2024-08-01] MEDS: TIMOLOL 0.5% OPHTH DROPS 5 ML BTL OP PRN (09:57)
[2024-08-01] MEDS: TRIAMCINOLONE ACETONIDE (PF) 40 MG/ML 1ML VIAL INTRAOCULA ONE (10:34)
[2024-08-01] MEDS: HYALURONATE SODIUM INTRAOCULAR 1 EACH SYRINGE (12MG/ML) INTRAOCULA ONE (10:41)
[2024-08-01] MEDS: ACETYLCHOLINE CHLORIDE 10 MG/ML 2 ML KIT INTRAOCULA ONE (10:41)
--- NOTE | 2024-08-01 11:00 | P.OP ---
Date of Procedure: 08/01/24 Preoperative Diagnosis: NS & cS & PSC & POAG mod Postoperative Diagnosis: same Procedure(s) Performed: PIOL & goniotomy OS Implants: [id number] 13.50 Anesthesia: MAC Surgeon: Jonnathan Valdez Pathology: none sent Condition: stable Disposition: same day Indications for Procedure: blurry vision and glaucoma control Operative Findings: post capsule rupture during procedure, phaco machine unable to connect vitrectomy equipment therefore, Weck-mihai sponge vitrectomy. recommend retina for further assessment and intervention.
[2024-08-01 11:19] VITALS: RESP 16
[2024-08-01 11:20] VITALS: BP 131/88; PULSE 85
--- NOTE | 2024-08-02 09:11 | OP ---
OPERATIVE REPORT DATE OF SERVICE : 08/01/2024 PROCEDURE: Phacoemulsification of cataract and intraocular lens implant of the left eye and goniotomy of the left eye. PREOPERATIVE DIAGNOSIS: Nuclear sclerosis; cortical sclerosis; posterior subcapsular cataract; and open-angle glaucoma, moderate stage. ANESTHESIA: Topical. ESTIMATED BLOOD LOSS: None. SPECIMEN TAKEN: None. NARRATIVE: After obtaining the appropriate consent, the patient was brought to the operating room. There she was placed under cardiac monitoring, prepped and draped in the usual sterile manner. Using previously acquired corneal topography information, the axis of 77 degrees was identified and marked with a [employer] axis marker. At the 5 o'clock position, an MVR blade was used to create a paracentesis port. Through this opening, 1% Xylocaine MPF 50:50 mix of balanced salt solution was injected into the anterior chamber. This was followed by Trypan blue which was allowed to stay in the eye for 90 seconds. Once irrigated away with balanced salt solution, the eye was then stabilized with Viscoat. At the 3 o'clock position, a 2.5 mm keratome was used to create a self- sealing corneal flap incision. The patient was then asked to rotate her head and maintain a gaze approximately 45 degrees to her left. A gonioprism was placed on the eye and a KDB knife was used to perform a luz marina and meet goniotomy of the nasal trabecular meshwork. The patient was then rotated back to the normal supine position and a cystotome was introduced to begin a continuous tear capsulorrhexis which was completed using the Utrata forceps. Hydrodissection and hydrodelineation of the lens were accomplished with balanced salt solution. Phacoemulsification lens utilizing phaco-chop took 1 minute and 9 seconds at 10% power. During the late stages of phacoemulsification of the lens, the capsular bag was noted to have become incompetent and there was no evidence of any nuclear material or cortical material having fallen through the area. However, to further insure stability in the anterior chamber, additional Viscoat was used to tamponade the vitreous-aqueous interface. Additional cleaning of the remaining cortical material from the equator or the bag was performed using irrigation and aspiration. A vitrectomy was attempted and unfortunately due to equipment difficulties was unable to be properly performed. Kenalog rinsed with balanced salt solution 3 times was injected into the anterior chamber to identify any stray vitreous and using mechanical Weck-Molly vitrectomy, any uncontrolled vitreous was amputated with Vannas scissors and the balance of the vitreous body was moved back to the posterior chamber of the eye. A Bausch and Lomb LI61 AO 14.5 diopter posterior chamber intraocular lens was placed in the ciliary sulcus. Miochol was used to bring about pupillary miosis and careful irrigation and aspiration of the remaining viscoelastic from the anterior chamber was performed. One final check for any stray vitreous escaping the incision areas was also confirmed clear of any vitreous material. The eye was then brought slightly above normal intraocular pressure with balanced salt solution from the paracentesis after hydration of both temporal and paracentesis wounds. She then received 2 drops of 0.5% timolol as well as 2 drops of gentamicin. She was then lightly patched and shielded in the usual manner. There were no additional difficulties encountered during the course of the procedure. She tolerated the procedure well and was returned to outpatient recovery in good condition. MMEBONIL / IJN: [id number] /
== END 2024-08-01 11:38 | disposition home or self-care (01) ==
LOC: OR 08:17
PROVIDERS: ATTEND Ophthalmology
DX: H25.12 Age-related nuclear cataract, left eye (principal); I10 Essential (primary) hypertension; I48.91 Unspecified atrial fibrillation; E07.9 Disorder of thyroid, unspecified; M06.9 Rheumatoid arthritis, unspecified; M19.90 Unspecified osteoarthritis, unspecified site; M79.7 Fibromyalgia; Z79.01 Long term (current) use of anticoagulants; Z79.1 Long term (current) use of non-steroidal anti-inflammatories (NSAID); Z79.899 Other long term (current) drug therapy; Z88.1 Allergy status to other antibiotic agents; Z88.8 Allergy status to other drugs, medicaments and biological substances
CPT/HCPCS: 66984; 65820; C1780; J2250; J1720; J0171; J3010; J3300; J2003